=== PATIENT | female | born 1935 | race Caucasian/White ===

== ENCOUNTER 2016-11-29 10:20 | Inpatient (IN) | payer MEDICARE, BC ==
[2016-11-29] MEDS ORDERED: Albuterol/Ipratropium 3.0-0.5 MG/3 ML Neb Soln NEB ONE (10:50)
[2016-11-29] MEDS ORDERED: Sodium Chloride 0.9% 1,000 ML IV SCH (13:45)
--- NOTE | 2016-11-29 13:54 | EDM.PDOC ---
ED HPI GENERAL MEDICAL PROBLEM - General Chief Complaint: Respiratory Problem Stated Complaint: SOB Time Seen by Provider: 11/29/16 10:30 Source of Information: Reports: Patient, Family History Limitations: Reports: No Limitations - History of Present Illness INITIAL COMMENTS - FREE TEXT/NARRATIVE: Patient is a 81 year old woman who has COPD and a history of low sodium who today has had difficulty breathing and is very short of breath. She is very weak and her appetite is not good. She has minimal pain but it is hard for her to get around at her house due to her breathing problems and weakness. 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 - Related Data Allergies Allergy/AdvReac Type Severity Reaction Status Date / Time codeine Allergy Nausea and Verified 11/29/16 13:53 Vomiting zolpidem tartrate Allergy Nausea and Verified 11/29/16 13:53 [From Ambien] Vomiting Home Meds: Home Meds Fluticasone/Salmeterol [Advair 500-50] 1 puff INH BID 07/05/14 [History] Nitroglycerin [Nitrostat] 0.4 mg SL Q5M PRN 07/05/14 [History] LORazepam 1 mg PO BID PRN 06/14/15 [History] Umeclidinium [place] [Incruse Ellipta] 62.5 mcg IH DAILY 06/14/15 [History] Carvedilol [Coreg] 6.25 mg PO BIDMEALS tablet 06/16/15 [Rx] Losartan [Cozaar] 100 mg PO DAILY tablet 06/16/15 [Rx] Fluticasone Propionate [Flovent] 2 sprays INH DAILY 11/29/16 [History] Furosemide [Lasix] 40 mg PO DAILY 11/29/16 [History] Levalbuterol HCl [Xopenex] 1 dose INH QID 11/29/16 [History] Levothyroxine [Synthroid] 88 mcg PO DAILY 11/29/16 [History] Magnesium Hydroxide [Milk of Magnesia] 1 dose PO DAILY 11/29/16 [History] Mirtazapine [Remeron] 30 mg PO DAILY 11/29/16 [History] Nicotine [Nicotine Patch] 1 patch TRDERM DAILY 11/29/16 [History] Polyvinyl Alcohol/Povidone/Pf [Refresh Classic Eye Drops] 1 drop EYEBOTH TID [History] Potassium Chloride [Klor-Con 10] 10 meq PO DAILY 11/29/16 [History] Past Medical History HEENT History: Reports: Cataract, Impaired Vision Cardiovascular History: Reports: Angina, High Cholesterol, Hypertension, SOB on Exertion, Stents Respiratory History: Reports: Bronchitis, Recurrent, COPD, Sleep Apnea, SOB Gastrointestinal History: Reports: Chronic Constipation, Hemorrhoids Genitourinary History: Reports: None 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 OB/BYN History: IV PARA IV Musculoskeletal History: Reports: Arthritis, Back Pain, Chronic Neurological History: Reports: CVA Psychiatric History: Reports: Addiction, Anxiety, Panic Attack Endocrine/Metabolic History: Reports: Hypothyroidism Hematologic History: Reports: None Oncologic (Cancer) History: Reports: Breast Dermatologic History: Reports: None - Infectious Disease History Infectious Disease History: Reports: Chicken Pox, Pertussis (Whooping Cough), Scarlet Fever - Past Surgical History Head Surgeries/Procedures: Reports: None HEENT Surgical History: Reports: Cataract Surgery Cardiovascular Surgical History: Reports: Carotid Endarterectomy, Coronary Artery Stent Female Surgical History: Reports: Breast Biopsy, Tubal Ligation Endocrine Surgical History: Reports: None Neurological Surgical History: Reports: None Oncologic Surgical History: Reports: Biopsy of Breast Dermatological Surgical History: Reports: None Social & Family History - Family History Family Medical History: Noncontributory Cardiac: Reports: None Respiratory: Reports: None GI: Reports: None : Reports: None OBGYN: Reports: Musculoskeletal: Reports: None Neurological: Reports: None Psychiatric: Reports: None Endocrine/Metabolic: Reports: Hypoparathyroidism Hematologic: Reports: None Immunologic: Reports: None Dermatologic: Reports: None Oncologic: Reports: Esophageal, Ovarian - Tobacco Use Smoking Status *Q: Current Every Day Smoker Years of Tobacco use: 60 Packs/Tins Daily: 1 Used Tobacco, but Quit: No Month Tobacco Last Used: 06/05/14 Second Hand Smoke Exposure: No - Caffeine Use Caffeine Use: Reports: Coffee - Alcohol Use Days Per Week of Alcohol Use: 0 - Recreational Drug Use Recreational Drug Use: No - Living Situation & Occupation Living situation: Reports: ED ROS GENERAL - Review of Systems Review Of Systems: See Below Constitutional: Reports: Weakness, Fatigue, Decreased Appetite HEENT: Reports: No Symptoms Respiratory: Reports: Shortness of Breath, Cough Cardiovascular: Reports: No Symptoms Endocrine: Reports: No Symptoms GI/Abdominal: Reports: No Symptoms : Reports: No Symptoms Musculoskeletal: Reports: No Symptoms Skin: Reports: No Symptoms Neurological: Reports: No Symptoms Psychiatric: Reports: No Symptoms Hematologic/Lymphatic: Reports: No Symptoms Immunologic: Reports: No Symptoms ED EXAM, GENERAL - Physical Exam Exam: See Below Exam Limited By: No Limitations General Appearance: Alert, WD/WN, No Apparent Distress Eye Exam: Bilateral Eye: EOMI, Normal Fundi, Normal Inspection, PERRL Ears: Normal External Exam, Normal Canal, Hearing Grossly Normal, Normal TMs Ear Exam: Bilateral Ear: Auricle Normal, Canal Normal, TM normal Nose: Normal Inspection Throat/Mouth: Normal Inspection Head: Atraumatic, Normocephalic Neck: Normal Inspection, Supple, Non-Tender, Full Range of Motion Respiratory/Chest: Respiratory Distress, Decreased Breath Sounds Cardiovascular: Normal Peripheral Pulses, Regular Rate, Rhythm, No Edema, No Gallop, No JVD, No Murmur, No Rub GI/Abdominal: Normal Bowel Sounds, Soft, Non-Tender, No Organomegaly, No Distention, No Abnormal Bruit, No Mass Back Exam: Normal Inspection, Full Range of Motion, NT Extremities: Normal Inspection, Normal Range of Motion, Non-Tender, Normal Capillary Refill Neurological: Alert, Oriented, CN II-XII Intact, Normal Cognition, Normal Gait, Normal Reflexes, No Motor/Sensory Deficits Psychiatric: Normal Affect, Normal Mood Skin Exam: Warm, Dry, Intact, Normal Color, No Rash Lymphatic: No Adenopathy Course - Vital Signs Text/Narrative:: Patient did well in the ED after she was given a Duoneb. Her CXR showed COPD but no infiltrates. Her CBC was normal but she was Hyponatremic with a sodium of 124. She will be admitted to the Hospital service of Dr. Hunt. She will be on Normal Saline 125 ml/hour. IV solumedrol 125 mg q 12 hours, Duoneb 1 unit dose q 6 hours, Oxygen 2-4 liters to keep O2 sats over 90%. Will continue her home medications. She will need a regular diet. Last Recorded V/S: Last Vital Signs Temp 36.2 C 11/29/16 11:37 Pulse 76 11/29/16 11:37 Resp 22 H 11/29/16 11:37 BP 152/91 H 11/29/16 11:37 Pulse Ox 86 L 11/29/16 11:37 - Orders/Labs/Meds Orders: Active Orders 24 hr Category Date Time Status Admission Status [Patient Status] [ADT] Routine ADT 11/29/16 13:21 Ordered RT Aerosol Therapy [RC] ASDIRECTED Care 11/29/16 13:46 Ordered Chest 2V [CR] Stat Exams 11/29/16 11:19 Taken Albuterol/Ipratropium [DuoNeb 3.0-0.5 MG/3 ML] Med 11/29/16 13:45 Ordered 3 ml NEB Q6H PRN Sodium Chloride 0.9% @ 125 MLS/HR (1000ml) Med 11/29/16 13:45 Ordered Sodium Chloride 0.9% [Normal Saline] 1,000 ml IV ASDIRECTED methylPREDNISolone Sod Succ [Solu-Medrol] Med 11/29/16 21:00 Ordered 125 mg IV BID EKG 12 Lead [EK] Routine Ther 11/29/16 10:49 Ordered Medication Orders Albuterol/Ipratropium (Duoneb 3.0-0.5 Mg/3 Ml) 3 ml NEB Q6H PRN PRN Reason: Dyspnea Sodium Chloride (Normal Saline) 1,000 mls @ 125 mls/hr IV ASDIRECTED FRANCOIS Methylprednisolone Sodium Succinate (Solu-Medrol) 125 mg IV BID [facility] Labs: Laboratory Tests 11/29/16 11/29/16 11/29/16 Range/Units 10:37 10:37 10:37 WBC 5.9 (4.5-12.0) X10-3/uL RBC 3.51 (3.23-5.20) x10(6)uL Hgb 10.3 L (11.5-15.5) g/dL Hct 31.0 (30.0-51.3) % MCV 88.3 (80-96) fL MCH 29.4 (27.7-33.6) pg MCHC 33.3 (32.2-35.4) g/dL RDW 13.5 (11.5-15.5) % Plt Count 413 H (125-369) X10(3)uL MPV 7.3 L (7.4-10.4) fL Neut % (Auto) 78.2 (46-82) % Lymph % (Auto) 11.0 L (13-37) % [place] % (Auto) 8.1 (4-12) % Eos % (Auto) 2 (1.0-5.0) % Baso % (Auto) 1 (0-2) % Neut # (Auto) 4.6 (1.6-8.3) # Lymph # (Auto) 0.6 (0.6-5.0) # [place] # (Auto) 0.5 (0.0-1.3) # Eos # (Auto) 0.1 (0.0-0.8) # Baso # (Auto) 0.1 (0.0-0.2) # Sodium 124 L (135-145) mmol/L Potassium 4.6 (3.5-5.3) mmol/L Chloride 81 L* D (100-110) mmol/L Carbon Dioxide 32 H (23-29) mmol/L BUN 14 (8-23) mg/dL Creatinine 0.9 (0.6-1.3) mg/dL Est Cr Clr Drug Dosing TNP Estimated GFR (MDRD) > 60 (>60) BUN/Creatinine Ratio 15.6 (9-20) Glucose 123 H (80-116) mg/dL Calcium 8.6 (8.6-10.2) mg/dL Total Bilirubin 0.6 (0.1-1.3) mg/dL AST 24 D (5-27) IU/L ALT 15 D (14-26) IU/L Alkaline Phosphatase 55 L (56-112) IU/L Troponin I 0.01 L (0.02-0.06) NG/ML Total Protein 7.1 (6.0-8.0) g/dL Albumin 3.9 (3.2-4.6) g/dL Globulin 3.2 g/dL Albumin/Globulin Ratio 1.2 Urine Color (YELLOW) Urine Appearance (CLEAR) Urine pH (5.0-6.5) Ur Specific [place] (1.010-1.025) Urine Protein (NEGATIVE) mg/dL Urine Glucose (UA) (NEGATIVE) mg/dL Urine Ketones (NEGATIVE) mg/dL Urine Occult Blood (NEGATIVE) Urine Nitrite (NEGATIVE) Urine Bilirubin (NEGATIVE) Urine Urobilinogen (NEGATIVE) mg/dL Ur Leukocyte Esterase (NEGATIVE) Urine RBC (0) Urine WBC (0) Ur Squamous Epith Cells (NS,R,O) Urine Bacteria (NS) 11/29/16 Range/Units 12:10 WBC (4.5-12.0) X10-3/uL RBC (3.23-5.20) x10(6)uL Hgb (11.5-15.5) g/dL Hct (30.0-51.3) % MCV (80-96) fL MCH (27.7-33.6) pg MCHC (32.2-35.4) g/dL RDW (11.5-15.5) % Plt Count (125-369) X10(3)uL MPV (7.4-10.4) fL Neut % (Auto) (46-82) % Lymph % (Auto) (13-37) % [place] % (Auto) (4-12) % Eos % (Auto) (1.0-5.0) % Baso % (Auto) (0-2) % Neut # (Auto) (1.6-8.3) # Lymph # (Auto) (0.6-5.0) # [place] # (Auto) (0.0-1.3) # Eos # (Auto) (0.0-0.8) # Baso # (Auto) (0.0-0.2) # Sodium (135-145) mmol/L Potassium (3.5-5.3) mmol/L Chloride (100-110) mmol/L Carbon Dioxide (23-29) mmol/L BUN (8-23) mg/dL Creatinine (0.6-1.3) mg/dL Est Cr Clr Drug Dosing Estimated GFR (MDRD) (>60) BUN/Creatinine Ratio (9-20) Glucose (80-116) mg/dL Calcium (8.6-10.2) mg/dL Total Bilirubin (0.1-1.3) mg/dL AST (5-27) IU/L ALT (14-26) IU/L Alkaline Phosphatase (56-112) IU/L Troponin I (0.02-0.06) NG/ML Total Protein (6.0-8.0) g/dL Albumin (3.2-4.6) g/dL Globulin g/dL Albumin/Globulin Ratio Urine Color Yellow (YELLOW) Urine Appearance Clear (CLEAR) Urine pH 5.0 (5.0-6.5) Ur Specific [place] 1.015 (1.010-1.025) Urine Protein Negative (NEGATIVE) mg/dL Urine Glucose (UA) Normal (NEGATIVE) mg/dL Urine Ketones Negative (NEGATIVE) mg/dL Urine Occult Blood Negative (NEGATIVE) Urine Nitrite Negative (NEGATIVE) Urine Bilirubin Negative (NEGATIVE) Urine Urobilinogen Normal (NEGATIVE) mg/dL Ur Leukocyte Esterase Negative (NEGATIVE) Urine RBC 0-5 (0) Urine WBC 0-5 (0) Ur Squamous Epith Cells Rare (NS,R,O) Urine Bacteria Rare H (NS) Meds: Medications Generic Name Dose Route Start Last Admin Trade Name Freq PRN Reason Stop Dose Admin Albuterol/Ipratropium 3 ml 11/29/16 13:45 Duoneb 3.0-0.5 Mg/3 Ml NEB Q6H PRN Dyspnea Sodium Chloride 1,000 mls @ 125 mls/hr 11/29/16 13:45 Normal Saline IV ASDIRECTED FRANCOIS Methylprednisolone Sodium Succinate 125 mg 11/29/16 21:00 Solu-Medrol IV BID FRANCOIS Discontinued Medications Generic Name Dose Route Start Last Admin Trade Name Freq PRN Reason Stop Dose Admin Albuterol/Ipratropium 3 ml 11/29/16 10:50 11/29/16 11:08 Duoneb 3.0-0.5 Mg/3 Ml NEB 11/29/16 10:51 3 ml ONETIME ONE Administration Departure - Departure Time of Disposition: 14:24 Disposition: Admitted As Inpatient 68 Condition: Fair Clinical Impression: COPD exacerbation, COPD (chronic obstructive pulmonary disease) with emphysema , Hyponatremia, Hyponatremia syndrome - Discharge Information Referrals: Angela Cifuentes MEDICINE TEACHER [Primary Care Provider] - - My Orders Last 24 Hours: My Active Orders 11/29/16 10:49 EKG 12 Lead [EK] Routine 11/29/16 11:19 Chest 2V [CR] Stat 11/29/16 13:21 Admission Status [Patient Status] [ADT] Routine 11/29/16 13:45 Albuterol/Ipratropium [DuoNeb 3.0-0.5 MG/3 ML] 3 ml NEB Q6H PRN Sodium Chloride 0.9% @ 125 MLS/HR (1000ml) Sodium Chloride 0.9% [Normal Saline] 1,000 ml IV ASDIRECTED 11/29/16 13:46 RT Aerosol Therapy [RC] ASDIRECTED 11/29/16 21:00 methylPREDNISolone Sod Succ [Solu-Medrol] 125 mg IV BID - Assessment/Plan Last 24 Hours: My Active Orders 11/29/16 10:49 EKG 12 Lead [EK] Routine 11/29/16 11:19 Chest 2V [CR] Stat 11/29/16 13:21 Admission Status [Patient Status] [ADT] Routine 11/29/16 13:45 Albuterol/Ipratropium [DuoNeb 3.0-0.5 MG/3 ML] 3 ml NEB Q6H PRN Sodium Chloride 0.9% @ 125 MLS/HR (1000ml) Sodium Chloride 0.9% [Normal Saline] 1,000 ml IV ASDIRECTED 11/29/16 13:46 RT Aerosol Therapy [RC] ASDIRECTED 11/29/16 21:00 methylPREDNISolone Sod Succ [Solu-Medrol] 125 mg IV BID
[2016-11-29] MEDS ORDERED: Sodium Chloride 0.9% 10 ML Syringe FLUSH PRN ×2 (14:15→19:14)
[2016-11-29] MEDS ORDERED: Nitroglycerin 0.4 MG Tab.SL SL PRN (14:51)
[2016-11-29] MEDS: LORazepam 1 MG Tab PO PRN ×2 (15:15→23:39)
[2016-11-29] MEDS: Albuterol/Ipratropium 3.0-0.5 MG/3 ML Neb Soln NEB PRN ×2 (17:02→23:24)
[2016-11-29] MEDS: Albuterol 90 MCG/6.7 GM Inhaler INH SCH ×2 (17:02→21:37)
[2016-11-29] MEDS ORDERED: Magnesium Hydroxide 400 MG/5 ML Susp 30 ML Cup PO PRN (18:53)
[2016-11-29] MEDS: Carvedilol 6.25 MG Tab PO SCH (18:53)
--- NOTE | 2016-11-29 19:19 | PCM.HP ---
H&P History of Present Illness - General Date of Service: 11/29/16 Admit Problem/Dx: Admission Diagnosis/Problem Admission Diagnosis/Problem COPD, Moderate chronic obstructive pulmonary disease - History of Present Illness Initial Comments - Free Text/Narative: 81-year-old female admitted because of shortness of breath. This apparently has been going on for 2 days,but got worse this morning around 4 AM accompanied by cold symptoms and a cough. She was unable to ambulate at all without being short of breath. She was noted to know oxygenation's upon arrival. She is oxygen dependent due to COPD, Andehist of CHF, and COPD which a previously been stable. She also suffers from anxiety and hypertension are well controlled. Last year she spent about 9 months in the [facility] but has been home and fairly independent since. There is no report of fever chest pain or headaches. Onset of Symptoms: Reports: Today - Related Data Allergies/Adverse Reactions: Allergies Allergy/AdvReac Type Severity Reaction Status Date / Time codeine Allergy Nausea and Verified 11/29/16 13:53 Vomiting zolpidem tartrate Allergy Nausea and Verified 11/29/16 13:53 [From Ambien] Vomiting Home Medications: Home Meds Fluticasone/Salmeterol [Advair 500-50] 1 puff INH BID 07/05/14 [History] Nitroglycerin [Nitrostat] 0.4 mg SL Q5M PRN 07/05/14 [History] LORazepam 1 mg PO BID PRN 06/14/15 [History] Umeclidinium [place] [Incruse Ellipta] 62.5 mcg IH DAILY 06/14/15 [History] Carvedilol [Coreg] 6.25 mg PO BIDMEALS tablet 06/16/15 [Rx] Losartan [Cozaar] 100 mg PO DAILY tablet 06/16/15 [Rx] Fluticasone Propionate [Flovent] 2 sprays INH DAILY 11/29/16 [History] Furosemide [Lasix] 40 mg PO DAILY 11/29/16 [History] Levalbuterol HCl [Xopenex] 1 dose INH QID 11/29/16 [History] Levothyroxine [Synthroid] 88 mcg PO DAILY 11/29/16 [History] Magnesium Hydroxide [Milk of Magnesia] 1 dose PO DAILY 11/29/16 [History] Mirtazapine [Remeron] 30 mg PO DAILY 11/29/16 [History] Nicotine [Nicotine Patch] 1 patch TRDERM DAILY 11/29/16 [History] Polyvinyl Alcohol/Povidone/Pf [Refresh Classic Eye Drops] 1 drop EYEBOTH TID [History] Potassium Chloride [Klor-Con 10] 10 meq PO DAILY 11/29/16 [History] busPIRone [Buspar] 7.5 mg PO BID 11/29/16 [History] busPIRone [Buspar] 15 mg PO BID 11/29/16 [History] Past Medical History HEENT History: Reports: Cataract, Impaired Vision Cardiovascular History: Reports: Angina, High Cholesterol, Hypertension, SOB on Exertion, Stents Respiratory History: Reports: Bronchitis, Recurrent, COPD, Sleep Apnea, SOB Gastrointestinal History: Reports: Chronic Constipation, Hemorrhoids Genitourinary History: Reports: None CLEAT LAYER History: Reports: Other OB/BYN History: IV PARA IV Musculoskeletal History: Reports: Arthritis, Back Pain, Chronic Neurological History: Reports: CVA Psychiatric History: Reports: Addiction, Anxiety, Panic Attack Endocrine/Metabolic History: Reports: Hypothyroidism Hematologic History: Reports: None Oncologic (Cancer) History: Reports: Breast Dermatologic History: Reports: None - Infectious Disease History Infectious Disease History: Reports: Chicken Pox, Pertussis (Whooping Cough), Scarlet Fever - Past Surgical History Head Surgeries/Procedures: Reports: None HEENT Surgical History: Reports: Cataract Surgery Cardiovascular Surgical History: Reports: Carotid Endarterectomy, Coronary Artery Stent Female Surgical History: Reports: Breast Biopsy, Tubal Ligation Endocrine Surgical History: Reports: None Neurological Surgical History: Reports: None Oncologic Surgical History: Reports: Biopsy of Breast Dermatological Surgical History: Reports: None Social & Family History - Family History Family Medical History: Noncontributory Cardiac: Reports: None Respiratory: Reports: None GI: Reports: None : Reports: None OBGYN: Reports: Musculoskeletal: Reports: None Neurological: Reports: None Psychiatric: Reports: None Endocrine/Metabolic: Reports: Hypoparathyroidism Hematologic: Reports: None Immunologic: Reports: None Dermatologic: Reports: None Oncologic: Reports: Esophageal, Ovarian - Tobacco Use Smoking Status *Q: Current Every Day Smoker Years of Tobacco use: 60 Packs/Tins Daily: 1 Used Tobacco, but Quit: No Month Tobacco Last Used: 06/05/14 Tobacco Use Comment: smokes 1 cig. per day Second Hand Smoke Exposure: No - Caffeine Use Caffeine Use: Reports: Coffee - Alcohol Use Days Per Week of Alcohol Use: 0 - Recreational Drug Use Recreational Drug Use: No - Living Situation & Occupation Living situation: Reports: H&P Review of Systems - Review of Systems: Review Of Systems: ROS reveals no pertinent complaints other than HPI. Exam - Exam Exam: See Below - Vital Signs Vital Signs: Last Vital Signs Temp 98.4 F 11/29/16 17:00 Pulse 67 11/29/16 18:53 Resp 22 H 11/29/16 17:00 BP 154/60 H 11/29/16 18:53 Pulse Ox 100 11/29/16 17:00 Weight: 45.359 kg - Exam Quality Assessment: Supplemental Oxygen General: Alert, Oriented, 4 HEENT: PERRLA, Hearing Intact, Mucosa Moist & [place], Nares Patent, Normal Nasal Septum, Posterior Pharynx Clear, Conjunctiva Clear, EOMI, EACs Clear, TMs Clear Neck: Supple, Trachea Midline, 2 Lungs: Rales, Rhonchi Cardiovascular: Regular Rate, Regular Rhythm GI/Abdominal Exam: Normal Bowel Sounds, Soft, Non-Tender, No Organomegaly, No Distention, No Abnormal Bruit, No Mass, Pelvis Stable (Female) Exam: Deferred Rectal (Female) Exam: Deferred Back Exam: Normal Inspection, Full Range of Motion, NT Extremities: Normal Inspection, Normal Range of Motion, Non-Tender, No Pedal Edema, Normal Capillary Refill Skin: Warm, Dry, Intact Neurological: Cranial Nerves Intact, Reflexes Equal Bilateral Neuro Extensive - Mental Status: Alert, Oriented x3, Normal Mood/Affect, Normal Cognition Neuro Extensive - Motor, Sensory, Reflexes: CN II-XII Intact, Normal Gait, Normal Reflexes Psychiatric: Alert, Normal Affect, Normal Mood - Patient Data Result Diagrams: 11/29/16 10:37 11/29/16 10:37 Imaging Impressions Last 24 hrs: CXR-no infiltrate. ECHO for 2016-EF 60% EKG INTERPRETATION Rhythm: NSR *Q Meaningful Use (ADM) - VTE *Q VTE Criteria *Q: - Stroke *Q Stroke Criteria *Q: - AMI *Q AMI Criteria *Q: - Problem List (1) Pulmonary HTN SNOMED Code(s): 27777463 ICD Code: I27.2 - OTHER SECONDARY PULMONARY HYPERTENSION Status: Acute Current Visit: Yes (2) Essential (primary) hypertension SNOMED Code(s): 03878152 ICD Code: I10 - ESSENTIAL (PRIMARY) HYPERTENSION Status: Acute Current Visit: Yes (3) Hyponatremia SNOMED Code(s): 30505386 ICD Code: E87.1 - HYPO-OSMOLALITY AND HYPONATREMIA Status: Acute Priority : Medium Current Visit: Yes Onset Date: 05/12/15 Problem Details: Hypervolemic hyponatremia. fluid restrict. sodium restrict. elevate legs. lasix if needed. recheck bmp this evening. strict i/o. (4) Anxiety SNOMED Code(s): 34538158 ICD Code: F41.9 - ANXIETY DISORDER, UNSPECIFIED Status: Chronic Current Visit: No (5) Supplemental oxygen dependent SNOMED Code(s): 781126425366 ICD Code: Z99.81 - DEPENDENCE ON SUPPLEMENTAL OXYGEN Status: Chronic Current Visit: No Problem Details: baseline at home 3L. (6) CHF (congestive heart failure), NYHA class III SNOMED Code(s): 332137488, 755238043 ICD Code: I50.9 - HEART FAILURE, UNSPECIFIED Status: Chronic Priority: High Current Visit: No Problem Details: Continue home meds. rule out nstemi, diuresis if required. support pulmonary function. set up for echo in house or outpt. dvt proph. follow ekg. Qualifiers: Congestive heart failure type: diastolic (7) CAD (coronary artery disease) SNOMED Code(s): 86180465 ICD Code: I25.10 - ATHSCL HEART DISEASE OF [place] CORONARY ARTERY W/O ANG PCTRS Status: Chronic Current Visit: Yes Qualifiers: Coronary Disease-Associated Artery/Lesion type: [place] artery Problem List Initiated/Reviewed/Updated: Yes Orders Last 24hrs: Active Orders 24 hr Category Date Time Status Height and Weight [] DAILY Care 11/29/16 19:14 Ordered Oxygen Therapy Adult [Oxygen Therapy] [] ASDIRECTED Care 11/29/16 14:43 Active RT Aerosol Therapy [RC] ASDIRECTED Care 11/29/16 13:46 Active Up With Assistance [] ASDIRECTED Care 11/29/16 19:14 Ordered VTE/DVT Education [] Per Unit Routine Care 11/29/16 19:14 Ordered Vital Signs [RC] Q8H Care 11/29/16 19:14 Ordered Regular Diet [DIET] Diet 11/29/16 Breakfast Ordered B-TYPE NATRIURETIC PEPTIDE,BNP [CHEM] Routine Lab 11/29/16 19:14 Ordered CBC WITH AUTO DIFF [HEME] AM Lab 11/30/16 05:11 Ordered COMPREHENSIVE METABOLIC PN,CMP [CHEM] AM Lab 11/30/16 05:11 Ordered TROPONIN I [CHEM] AM Lab 11/30/16 05:11 Ordered Albuterol [Proventil HFA] Med 11/29/16 16:00 Active 0 puff INH QIDRT Albuterol/Ipratropium [DuoNeb 3.0-0.5 MG/3 ML] Med 11/29/16 13:45 Active 3 ml NEB Q6H PRN Carvedilol [Coreg] Med 11/29/16 18:00 Active 6.25 mg PO BIDMEALS Enoxaparin [Lovenox] Med 11/30/16 09:00 Ordered 30 mg SUBCUT DAILY Fluticasone Propionate [Flonase] Med 11/30/16 09:00 Active 0 gm NASBOTH DAILY Furosemide [Lasix] Med 11/30/16 09:00 Active 40 mg PO DAILY LORazepam [Ativan] Med 11/29/16 15:00 Active 1 mg PO BID PRN Levothyroxine [Synthroid] Med 11/30/16 09:00 Active 88 mcg PO DAILY Losartan [Cozaar] Med 11/30/16 09:00 Active 100 mg PO DAILY Mirtazapine [Remeron] Med 11/30/16 09:00 Active 30 mg PO DAILY Mometasone/Formoterol [Dulera 200-5 MCG] Med 11/29/16 21:00 Active 2 puff IH BIDRT Nicotine [Habitrol] Med 11/30/16 09:00 Active 7 mg TRDERM DAILY Nitroglycerin [Nitrostat] Med 11/29/16 14:51 Active 0.4 mg SL Q5M PRN Polyvinyl Alcohol/Povidone/Pf [Refresh Classic Eye Med 11/29/16 21:00 Pending Drops] 1 drop EYEBOTH TID Potassium Chloride [Klor-Con 10] Med 11/30/16 09:00 Active 10 meq PO DAILY Sodium Chloride 0.9% [Saline Flush] Med 11/29/16 14:15 Active 10 ml FLUSH ASDIRECTED PRN Sodium Chloride 0.9% [Saline Flush] Med 11/29/16 19:14 Ordered 10 ml FLUSH ASDIRECTED PRN Umeclidinium Inkom [Incruse Ellipta] Med 11/30/16 09:00 Pending 62.5 mcg IH DAILY methylPREDNISolone Sod Succ [Solu-MEDROL] Med 11/29/16 21:00 Active 125 mg IVPUSH BID Saline Lock Insert [OM.PC] Routine Oth 11/29/16 19:14 Ordered Resuscitation Status Routine Resus Stat 11/29/16 19:14 Ordered Medication Orders Albuterol (Proventil Hfa) 0 puff INH QIDRT [facility] Last Admin: 11/29/16 17:02 Dose: Not Given Albuterol/Ipratropium (Duoneb 3.0-0.5 Mg/3 Ml) 3 ml NEB Q6H PRN PRN Reason: Dyspnea Last Admin: 11/29/16 17:02 Dose: 3 ml Carvedilol (Coreg) 6.25 mg PO BIDMEALS [facility] Last Admin: 11/29/16 18:53 Dose: 6.25 mg Fluticasone Propionate (Flonase) 0 gm NASBOTH DAILY [facility] Furosemide (Lasix) 40 mg PO DAILY [facility] Levothyroxine Sodium (Synthroid) 88 mcg PO DAILY [facility] Lorazepam (Ativan) 1 mg PO BID PRN PRN Reason: ANXIETY Last Admin: 11/29/16 15:15 Dose: 1 mg Losartan Potassium (Cozaar) 100 mg PO DAILY [facility] Methylprednisolone Sodium Succinate (Solu-Medrol) 125 mg IVPUSH BID [facility] Mirtazapine (Remeron) 30 mg PO DAILY [facility] Mometasone Furoate/Formoterol Fumar (Dulera 200-5 Mcg) 2 puff IH BIDRT [facility] Nicotine (Habitrol) 7 mg TRDERM DAILY [facility] Nitroglycerin (Nitrostat) 0.4 mg SL Q5M PRN PRN Reason: Chest Pain Non-Formulary Medication (Polyvinyl Alcohol/Povidone/Pf [Refresh Classic Eye Drops]) 1 drop EYEBOTH TID [facility] Non-Formulary Medication (Umeclidinium [place] [Incruse Ellipta]) 62.5 mcg IH DAILY [facility] Potassium Chloride (Klor-Con 10) 10 meq PO DAILY [facility] Sodium Chloride (Saline Flush) 10 ml FLUSH ASDIRECTED PRN PRN Reason: Other Assessment/Plan Comment:: I agree with Solu-Medrol IV, oxygen supplementation, and duo nebs as needed. I restricted oral free water intake to less than 1000 mL a day. The rest of the home medications will be continued anticipating 2-3 day hospital stay.We'll repeat a CBC basic profile in morning along with a BNP. I didn't echocardiogram done in 2016 with an ejection fraction of 65%. I suspect a CHF to be diastolic dysfunction.
[2016-11-29] MEDS ORDERED: Non-Formulary Medication 1 Each (Polyvinyl Alcohol/Povidone/Pf [Refresh Classic Eye Drops] EYEBOTH SCH (21:00)
[2016-11-29] MEDS ORDERED: methylPREDNISolone Sodium Succinate 125 MG/2 ML SDV IVPUSH SCH (21:00)
[2016-11-29] MEDS: Formoterol/Mometasone 200-5 MCG 8.8 GM Inhaler IH SCH (21:21)
[2016-11-30] MEDS: Albuterol/Ipratropium 3.0-0.5 MG/3 ML Neb Soln NEB PRN ×4 (04:00→18:29)
[2016-11-30] MEDS: Levothyroxine 88 MCG Tab PO SCH (06:10)
[2016-11-30] MEDS: Formoterol/Mometasone 200-5 MCG 8.8 GM Inhaler IH SCH ×2 (08:00→20:48)
--- NOTE | 2016-11-30 08:07 | PCM.PN ---
- General Info Date of Service: 11/30/16 Admission Dx/Problem (Free Text): Admission Diagnosis/Problem Admission Diagnosis/Problem COPD, Moderate chronic obstructive pulmonary disease Functional Status: Reports: Pain Controlled, Urinating - Review of Systems General: Reports: No Symptoms HEENT: Reports: No Symptoms Pulmonary: Reports: Shortness of Breath, Cough, Wheezing Cardiovascular: Reports: No Symptoms, Dyspnea on Exertion. Denies: Chest Pain Gastrointestinal: Reports: No Symptoms Neurological: Reports: No Symptoms Psychiatric: Reports: Mood Lability, Anxiety - Patient Data Vitals - Most Recent: Last Vital Signs Temp 98.2 F 11/30/16 07:00 Pulse 90 11/30/16 07:00 Resp 18 11/30/16 07:00 BP 187/102 H 11/30/16 07:00 Pulse Ox 99 11/30/16 07:00 Weight - Most Recent: 51.573 kg I&O - Last 24 Hours: Intake & Output 11/29/16 11/30/16 11/30/16 22:59 06:59 14:59 Intake Total 482 Balance 482 Lab Results Last 24 Hours: Laboratory Results - last 24 hr 11/30/16 11/30/16 11/30/16 Range/Units 06:25 06:25 06:25 WBC 5.2 (4.5-12.0) X10-3/uL RBC 3.42 (3.23-5.20) x10(6)uL Hgb 10.0 L (11.5-15.5) g/dL Hct 30.1 (30.0-51.3) % MCV 88.0 (80-96) fL MCH 29.2 (27.7-33.6) pg MCHC 33.2 (32.2-35.4) g/dL RDW 13.3 (11.5-15.5) % Plt Count 427 H (125-369) X10(3)uL MPV 7.6 (7.4-10.4) fL Add Manual Diff Yes Neutrophils % (Manual) 88 H (46-82) % Lymphocytes % (Manual) 12 L (13-37) % Sodium 120 L (135-145) mmol/L Potassium 4.6 (3.5-5.3) mmol/L Chloride 81 L* (100-110) mmol/L Carbon Dioxide 31 H (23-29) mmol/L BUN 16 (8-23) mg/dL Creatinine 1.0 (0.6-1.3) mg/dL Est Cr Clr Drug Dosing 36.08 mL/min Estimated GFR (MDRD) 53 L (>60) BUN/Creatinine Ratio 16.0 (9-20) Glucose 160 H (80-116) mg/dL Calcium 8.7 (8.6-10.2) mg/dL Total Bilirubin 0.4 (0.1-1.3) mg/dL AST 26 (5-27) IU/L ALT 15 (14-26) IU/L Alkaline Phosphatase 54 L (56-112) IU/L Troponin I 0.01 L (0.02-0.06) NG/ML B-Natriuretic Peptide (0-100) pg/mL Total Protein 7.1 (6.0-8.0) g/dL Albumin 3.8 (3.2-4.6) g/dL Globulin 3.3 g/dL Albumin/Globulin Ratio 1.2 11/30/ Range/Units 06:25 WBC (4.5-12.0) X10-3/uL RBC (3.23-5.20) x10(6)uL Hgb (11.5-15.5) g/dL Hct (30.0-51.3) % MCV (80-96) fL MCH (27.7-33.6) pg MCHC (32.2-35.4) g/dL RDW (11.5-15.5) % Plt Count (125-369) X10(3)uL MPV (7.4-10.4) fL Add Manual Diff Neutrophils % (Manual) (46-82) % Lymphocytes % (Manual) (13-37) % Sodium (135-145) mmol/L Potassium (3.5-5.3) mmol/L Chloride (100-110) mmol/L Carbon Dioxide (23-29) mmol/L BUN (8-23) mg/dL Creatinine (0.6-1.3) mg/dL Est Cr Clr Drug Dosing mL/min Estimated GFR (MDRD) (>60) BUN/Creatinine Ratio (9-20) Glucose (80-116) mg/dL Calcium (8.6-10.2) mg/dL Total Bilirubin (0.1-1.3) mg/dL AST (5-27) IU/L ALT (14-26) IU/L Alkaline Phosphatase (56-112) IU/L Troponin I (0.02-0.06) NG/ML B-Natriuretic Peptide 528 H (0-100) pg/mL Total Protein (6.0-8.0) g/dL Albumin (3.2-4.6) g/dL Globulin g/dL Albumin/Globulin Ratio Med Orders - Current: Current Medications Albuterol (Proventil Hfa) 0 puff INH QIDRT [facility] Last Admin: 11/29/16 21:37 Dose: 1 puff Albuterol/Ipratropium (Duoneb 3.0-0.5 Mg/3 Ml) 3 ml NEB Q4H PRN PRN Reason: Dyspnea Last Admin: 11/30/16 04:00 Dose: 3 ml Buspirone HCl (Buspar) 15 mg PO BID [facility] Carvedilol (Coreg) 6.25 mg PO BIDMEALS [facility] Last Admin: 11/29/16 18:53 Dose: 6.25 mg Enoxaparin Sodium (Lovenox) 30 mg SUBCUT DAILY [facility] Fluticasone Propionate (Flonase) 0 gm NASBOTH DAILY [facility] Furosemide (Lasix) 40 mg PO DAILY [facility] Sodium Chloride (Normal Saline) 1,000 mls @ 100 mls/hr IV ASDIRECTED [facility] Levothyroxine Sodium (Synthroid) 88 mcg PO DAILY@0600 [facility] Last Admin: 11/30/16 06:10 Dose: 88 mcg Lorazepam (Ativan) 0.5 mg PO QID [facility] Losartan Potassium (Cozaar) 100 mg PO DAILY [facility] Methylprednisolone Sodium Succinate (Solu-Medrol) 125 mg IVPUSH Q8H [facility] Mirtazapine (Remeron) 30 mg PO BEDTIME [facility] Mometasone Furoate/Formoterol Fumar (Dulera 200-5 Mcg) 2 puff IH BIDRT [facility] Last Admin: 11/29/16 21:21 Dose: 2 puff Nicotine (Habitrol) 7 mg TRDERM DAILY [facility] Nitroglycerin (Nitrostat) 0.4 mg SL Q5M PRN PRN Reason: Chest Pain Non-Formulary Medication (Polyvinyl Alcohol/Povidone/Pf [Refresh Classic Eye Drops]) 1 drop EYEBOTH TID [facility] Non-Formulary Medication (Umeclidinium [place] [Incruse Ellipta]) 62.5 mcg IH DAILY [facility] Potassium Chloride (Klor-Con 10) 10 meq PO DAILY [facility] Sodium Chloride (Saline Flush) 10 ml FLUSH ASDIRECTED PRN PRN Reason: Other Last Admin: 11/29/16 21:19 Dose: 10 ml Sodium Chloride (Saline Flush) 10 ml FLUSH ASDIRECTED PRN PRN Reason: Keep Vein Open Discontinued Medications Albuterol/Ipratropium (Duoneb 3.0-0.5 Mg/3 Ml) 3 ml NEB ONETIME ONE Stop: 11/29/16 10:51 Last Admin: 11/29/16 11:08 Dose: 3 ml Albuterol/Ipratropium (Duoneb 3.0-0.5 Mg/3 Ml) 3 ml NEB Q6H PRN PRN Reason: Dyspnea Last Admin: 11/29/16 23:24 Dose: 3 ml Fluticasone Propionate (Flonase) 0 gm NASBOTH DAILY [facility] Sodium Chloride (Normal Saline) 1,000 mls @ 125 mls/hr IV ASDIRECTED [facility] Last Admin: 11/29/16 14:41 Dose: 125 mls/hr Lorazepam (Ativan) 1 mg PO BID PRN PRN Reason: ANXIETY Last Admin: 11/29/16 23:39 Dose: 1 mg Magnesium Hydroxide (Milk Of Magnesia) ml PO DAILY [facility] Magnesium Hydroxide (Milk Of Magnesia) 30 ml PO DAILY PRN PRN Reason: Constipation Methylprednisolone Sodium Succinate (Solu-Medrol) 125 mg IVPUSH BID [facility] Last Admin: 11/29/16 21:18 Dose: 125 mg - Exam Quality Assessment: Supplemental Oxygen General: Alert, Mild Distress HEENT: Pupils Equal, Pupils Reactive, EOMI, Mucous Membr. Moist/[place] Neck: Supple Lungs: Decreased Breath Sounds, Wheezing, Other (tachypnea) Cardiovascular: Regular Rate, Regular Rhythm Extremities: Normal Inspection, Normal Range of Motion, Non-Tender, No Pedal Edema, Normal Capillary Refill Psy/Mental Status: Labile Mood, Anxious, Agitated - Problem List & Annotations (1) Supplemental oxygen dependent SNOMED Code(s): 731430092647 Code(s): Z99.81 - DEPENDENCE ON SUPPLEMENTAL OXYGEN Status: Chronic Current Visit: No Annotation/Comment:: baseline at home 3L. (2) Anxiety SNOMED Code(s): 02131987 Code(s): F41.9 - ANXIETY DISORDER, UNSPECIFIED Status: Chronic Current Visit: No (3) Pulmonary HTN SNOMED Code(s): 62237120 Code(s): I27.2 - OTHER SECONDARY PULMONARY HYPERTENSION Status: Acute Current Visit: Yes (4) Essential (primary) hypertension SNOMED Code(s): 99839115 Code(s): I10 - ESSENTIAL (PRIMARY) HYPERTENSION Status: Acute Current Visit: Yes (5) Hyponatremia SNOMED Code(s): 24348428 Code(s): E87.1 - HYPO-OSMOLALITY AND HYPONATREMIA Status: Acute Priority : Medium Current Visit: Yes Onset Date: 05/12/15 Annotation/Comment:: Hypervolemic hyponatremia. fluid restrict. sodium restrict. elevate legs. lasix if needed. recheck bmp this evening. strict i/o. (6) CHF (congestive heart failure), NYHA class III SNOMED Code(s): 933263899, 013182715 Code(s): I50.9 - HEART FAILURE, UNSPECIFIED Status: Chronic Priority: High Current Visit: No Qualifiers: Congestive heart failure type: diastolic Annotation/Comment:: Continue home meds. rule out nstemi, diuresis if required. support pulmonary function. set up for echo in house or outpt. dvt proph. follow ekg. 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 SNOMED Code(s): 25739532 Code(s): J43.9 - EMPHYSEMA, UNSPECIFIED Status: Acute Current Visit: Yes Qualifiers: Emphysema type: panlobular Qualified Code(s): J43.1 - Panlobular emphysema - Problem List Review Problem List Initiated/Reviewed/Updated: Yes - My Orders Last 24 Hours: My Active Orders 11/29/16 14:15 Sodium Chloride 0.9% [Saline Flush] 10 ml FLUSH ASDIRECTED PRN 11/29/16 19:14 Height and Weight [RC] DAILY Up With Assistance [RC] ASDIRECTED VTE/DVT Education [RC] Per Unit Routine Vital Signs [RC] Q8H Sodium Chloride 0.9% [Saline Flush] 10 ml FLUSH ASDIRECTED PRN Saline Lock Insert [OM.PC] Routine Resuscitation Status Routine 11/30/16 03:56 Albuterol/Ipratropium [DuoNeb 3.0-0.5 MG/3 ML] 3 ml NEB Q4H PRN 11/30/16 08:00 LORazepam [Ativan] 0.5 mg PO QID Sodium Chloride 0.9% @ 100 MLS/HR(1,000ml) Sodium Chloride 0.9% [Normal Saline] 1,000 ml IV ASDIRECTED busPIRone [Buspar] 15 mg PO BID methylPREDNISolone Sod Succ [Solu-MEDROL] 125 mg IVPUSH Q8H 11/30/16 09:00 Enoxaparin [Lovenox] 30 mg SUBCUT DAILY Fluticasone Propionate [Flonase] 0 gm NASBOTH DAILY 11/30/16 21:00 Mirtazapine [Remeron] 30 mg PO BEDTIME 12/01/16 05:11 B-TYPE NATRIURETIC PEPTIDE,BNP [CHEM] AM BASIC METABOLIC PANEL,BMP [CHEM] AM CBC WITH AUTO DIFF [HEME] AM - Plan Plan:: Increase Solu-Medrol 3 times a day. Continue SVNs. Increased frequency lorazepam 0.5 mg 4 times a day. Restart BuSpar. Repeat troponin BNP CHF sorry CBC in the morning. Restart IV fluids of sodium, and restrict free water. Discontinue Lasix.
[2016-11-30] MEDS: Carvedilol 6.25 MG Tab PO SCH ×2 (08:21→18:29)
[2016-11-30] MEDS: Albuterol 90 MCG/6.7 GM Inhaler INH SCH ×4 (08:21→20:51)
[2016-11-30] MEDS: LORazepam 0.5 MG Tab PO SCH ×5 (08:22→20:46)
[2016-11-30] MEDS: Nicotine 7 MG/24 Hr Patch TRDERM SCH (08:22)
[2016-11-30] MEDS: methylPREDNISolone Sodium Succinate 125 MG/2 ML SDV IVPUSH SCH ×2 (08:22→16:47)
[2016-11-30] MEDS: Potassium Chloride 10 MEQ Tab.ER PO SCH (08:22)
[2016-11-30] MEDS ORDERED: Non-Formulary Medication 1 Each (Umeclidinium Bromide [Incruse Ellipta] 62.5 MCG) IH SCH (09:00)
[2016-11-30] MEDS ORDERED: Fluticasone Propionate Nasal Spray 16 GM Bottle NASBOTH SCH ×2 (09:00)
[2016-11-30] MEDS ORDERED: Furosemide 40 MG Tab PO SCH (09:00)
[2016-11-30] MEDS ORDERED: Enoxaparin 30 MG/0.3 ML Syringe SUBCUT SCH (09:00)
[2016-11-30] MEDS ORDERED: Magnesium Hydroxide 400 MG/5 ML Susp 30 ML Cup PO SCH (09:00)
[2016-11-30] MEDS ORDERED: Mirtazapine 30 MG Tab PO SCH ×2 (09:00→21:00)
[2016-11-30] MEDS: Losartan 100 MG Tab PO SCH (09:03)
[2016-11-30] MEDS: busPIRone 15 MG Tab PO SCH ×2 (09:04→09:07)
[2016-11-30] MEDS: Sodium Chloride 0.9% 1,000 ML IV SCH ×2 (09:10→19:16)
[2016-11-30] MEDS: Enoxaparin 40 MG/0.4 ML Syringe SUBCUT SCH (10:24)
[2016-11-30] MEDS ORDERED: Acetaminophen 325 MG Tab PO PRN (13:13)
[2016-11-30] MEDS ORDERED: busPIRone 15 MG Tab PO SCH (21:00)
[2016-12-01] MEDS: methylPREDNISolone Sodium Succinate 125 MG/2 ML SDV IVPUSH SCH ×2 (00:25→08:32)
[2016-12-01] MEDS: Albuterol/Ipratropium 3.0-0.5 MG/3 ML Neb Soln NEB PRN ×3 (00:51→08:54)
[2016-12-01] MEDS: Levothyroxine 88 MCG Tab PO SCH (05:02)
[2016-12-01] MEDS: Sodium Chloride 0.9% 1,000 ML IV SCH (05:11)
[2016-12-01] MEDS: Formoterol/Mometasone 200-5 MCG 8.8 GM Inhaler IH SCH (06:00)
[2016-12-01] MEDS: Albuterol 90 MCG/6.7 GM Inhaler INH SCH (06:01)
[2016-12-01] MEDS ORDERED: Fluticasone Propionate Nasal Spray 16 GM Bottle NASBOTH SCH (07:52)
[2016-12-01] MEDS ORDERED: Formoterol/Mometasone 200-5 MCG 8.8 GM Inhaler IH SCH (07:56)
[2016-12-01] MEDS ORDERED: busPIRone 15 MG Tab PO SCH (08:00)
[2016-12-01] MEDS ORDERED: busPIRone 5 MG Tab PO SCH (08:00)
[2016-12-01] MEDS: Carvedilol 6.25 MG Tab PO SCH (08:31)
[2016-12-01] MEDS: Losartan 100 MG Tab PO SCH (08:32)
[2016-12-01] MEDS: LORazepam 0.5 MG Tab PO SCH (08:32)
[2016-12-01] MEDS: Nicotine 7 MG/24 Hr Patch TRDERM SCH (08:33)
[2016-12-01] MEDS: Potassium Chloride 10 MEQ Tab.ER PO SCH (08:34)
[2016-12-01 08:36] VITALS: BP 178/96
[2016-12-01] MEDS: Enoxaparin 40 MG/0.4 ML Syringe SUBCUT SCH (08:36)
--- NOTE | 2016-12-01 09:08 | PCM.PN ---
- General Info Date of Service: 12/01/16 Subjective Update: She had fairly good night except she gets extremely short of breath on speech and ambulation. She feels she is back to baseline electrical today. She denies any chest pain fever chills. Functional Status: Reports: Pain Controlled. Denies: Ambulating - Review of Systems General: Reports: Weakness HEENT: Reports: No Symptoms Pulmonary: Reports: Shortness of Breath. Denies: Cough Cardiovascular: Reports: No Symptoms Gastrointestinal: Reports: No Symptoms Psychiatric: Reports: Mood Lability - Patient Data Vitals - Most Recent: Last Vital Signs Temp 97.5 F 11/30/16 22:44 Pulse 106 H 12/01/16 08:31 Resp 20 11/30/16 22:44 BP 178/96 H 12/01/16 08:32 Pulse Ox 100 11/30/16 22:44 Weight - Most Recent: 52.526 kg I&O - Last 24 Hours: Intake & Output 11/30/16 12/01/16 12/01/16 22:59 06:59 14:59 Intake Total 1145 1080 Balance 1145 1080 Lab Results Last 24 Hours: Laboratory Results - last 24 hr 12/01/16 12/01/16 12/01/16 Range/Units 06:30 06:30 06:30 WBC 10.2 (4.5-12.0) X10-3/uL RBC 3.25 (3.23-5.20) x10(6)uL Hgb 9.6 L (11.5-15.5) g/dL Hct 28.7 L (30.0-51.3) % MCV 88.4 (80-96) fL MCH 29.5 (27.7-33.6) pg MCHC 33.3 (32.2-35.4) g/dL RDW 13.7 (11.5-15.5) % Plt Count 406 H (125-369) X10(3)uL MPV 7.7 (7.4-10.4) fL Add Manual Diff Yes Neutrophils % (Manual) 93 H (46-82) % Lymphocytes % (Manual) 4 L (13-37) % Monocytes % (Manual) 3 L (4-12) % Sodium 126 L (135-145) mmol/L Potassium 4.8 (3.5-5.3) mmol/L Chloride 89 L* D (100-110) mmol/L Carbon Dioxide 30 H (23-29) mmol/L BUN 17 (8-23) mg/dL Creatinine 0.8 (0.6-1.3) mg/dL Est Cr Clr Drug Dosing 45.10 mL/min Estimated GFR (MDRD) > 60 (>60) BUN/Creatinine Ratio 21.3 H (9-20) Glucose 138 H (80-116) mg/dL Calcium 8.9 (8.6-10.2) mg/dL B-Natriuretic Peptide 990 H (0-100) pg/mL Med Orders - Current: Current Medications Acetaminophen (Tylenol) 650 mg PO Q4H PRN PRN Reason: Pain Last Admin: 11/30/16 13:36 Dose: 650 mg Albuterol (Ventolin Hfa) 0 gm INH QIDRT [facility] Albuterol/Ipratropium (Duoneb 3.0-0.5 Mg/3 Ml) 3 ml NEB Q4H PRN PRN Reason: Dyspnea Last Admin: 12/01/16 08:54 Dose: 3 ml Buspirone HCl (Buspar) 15 mg PO BEDTIME [facility] Last Admin: 11/30/16 20:47 Dose: 15 mg Buspirone HCl (Buspar) 7.5 mg PO 0800,1200 [facility] Last Admin: 12/01/16 08:56 Dose: 7.5 mg Carvedilol (Coreg) 6.25 mg PO BIDMEALS [facility] Last Admin: 12/01/16 08:31 Dose: 6.25 mg Enoxaparin Sodium (Lovenox) 40 mg SUBCUT DAILY [facility] Last Admin: 12/01/16 08:36 Dose: Not Given Fluticasone Propionate (Flonase) 0 gm NASBOTH DAILY [facility] Last Admin: 12/01/16 08:32 Dose: 1 spray Sodium Chloride (Normal Saline) 1,000 mls @ 100 mls/hr IV ASDIRECTED [facility] Last Admin: 12/01/16 05:11 Dose: 100 mls/hr Levothyroxine Sodium (Synthroid) 88 mcg PO DAILY@0600 [facility] Last Admin: 12/01/16 05:02 Dose: 88 mcg Lorazepam (Ativan) 0.5 mg PO QID [facility] Last Admin: 12/01/16 08:32 Dose: 0.5 mg Losartan Potassium (Cozaar) 100 mg PO DAILY [facility] Last Admin: 12/01/16 08:32 Dose: 100 mg Methylprednisolone Sodium Succinate (Solu-Medrol) 125 mg IVPUSH Q8H [facility] Last Admin: 12/01/16 08:32 Dose: 125 mg Mirtazapine (Remeron) 30 mg PO BEDTIME [facility] Last Admin: 11/30/16 20:49 Dose: 30 mg Mometasone Furoate/Formoterol Fumar (Dulera 200-5 Mcg) 2 puff IH BIDRT [facility] Nicotine (Habitrol) 7 mg TRDERM DAILY [facility] Last Admin: 12/01/16 08:33 Dose: 7 mg Nitroglycerin (Nitrostat) 0.4 mg SL Q5M PRN PRN Reason: Chest Pain Non-Formulary Medication (Polyvinyl Alcohol/Povidone/Pf [Refresh Classic Eye Drops]) 1 drop EYEBOTH TID [facility] Non-Formulary Medication (Umeclidinium Ulman [Incruse Ellipta]) 62.5 mcg IH DAILY [facility] Potassium Chloride (Klor-Con 10) 10 meq PO DAILY [facility] Last Admin: 12/01/16 08:34 Dose: 10 meq Sodium Chloride (Saline Flush) 10 ml FLUSH ASDIRECTED PRN PRN Reason: Other Last Admin: 11/29/16 21:19 Dose: 10 ml Sodium Chloride (Saline Flush) 10 ml FLUSH ASDIRECTED PRN PRN Reason: Keep Vein Open Discontinued Medications Albuterol (Proventil Hfa) 0 puff INH QIDRT [facility] Last Admin: 12/01/16 06:01 Dose: Not Given Albuterol (Ventolin Hfa) 0 gm INH QIDRT [facility] Albuterol/Ipratropium (Duoneb 3.0-0.5 Mg/3 Ml) 3 ml NEB ONETIME ONE Stop: 11/29/16 10:51 Last Admin: 11/29/16 11:08 Dose: 3 ml Albuterol/Ipratropium (Duoneb 3.0-0.5 Mg/3 Ml) 3 ml NEB Q6H PRN PRN Reason: Dyspnea Last Admin: 11/29/16 23:24 Dose: 3 ml Buspirone HCl (Buspar) 15 mg PO BID [facility] Last Admin: 11/30/16 09:07 Dose: 15 mg Enoxaparin Sodium (Lovenox) 30 mg SUBCUT DAILY [facility] Last Admin: 11/30/16 08:22 Dose: 30 mg Fluticasone Propionate (Flonase) 0 gm NASBOTH DAILY [facility] Fluticasone Propionate (Flonase) 0 gm NASBOTH DAILY [facility] Last Admin: 11/30/16 09:03 Dose: 1 spray Furosemide (Lasix) 40 mg PO DAILY [facility] Sodium Chloride (Normal Saline) 1,000 mls @ 125 mls/hr IV ASDIRECTED [facility] Last Admin: 11/29/16 14:41 Dose: 125 mls/hr Lorazepam (Ativan) 1 mg PO BID PRN PRN Reason: ANXIETY Last Admin: 11/29/16 23:39 Dose: 1 mg Magnesium Hydroxide (Milk Of Magnesia) ml PO DAILY [facility] Magnesium Hydroxide (Milk Of Magnesia) 30 ml PO DAILY PRN PRN Reason: Constipation Methylprednisolone Sodium Succinate (Solu-Medrol) 125 mg IVPUSH BID [facility] Last Admin: 11/29/16 21:18 Dose: 125 mg Mometasone Furoate/Formoterol Fumar (Dulera 200-5 Mcg) 2 puff IH BIDRT [facility] Last Admin: 12/01/16 06:00 Dose: 2 puff - Exam Quality Assessment: Supplemental Oxygen General: Oriented, Cooperative, Mild Distress HEENT: Pupils Equal, Pupils Reactive, EOMI, Mucous Membr. Moist/[place] Neck: Supple Lungs: Decreased Breath Sounds, Rhonchi, Wheezing. No: Normal Respiratory Effort Cardiovascular: Regular Rate, Regular Rhythm - Problem List & Annotations (1) Supplemental oxygen dependent SNOMED Code(s): 657611939161 Code(s): Z99.81 - DEPENDENCE ON SUPPLEMENTAL OXYGEN Status: Chronic Current Visit: No Annotation/Comment:: baseline at home 3L. (2) Anxiety SNOMED Code(s): 61023206 Code(s): F41.9 - ANXIETY DISORDER, UNSPECIFIED Status: Chronic Current Visit: No (3) Pulmonary HTN SNOMED Code(s): 99401825 Code(s): I27.2 - OTHER SECONDARY PULMONARY HYPERTENSION Status: Acute Current Visit: Yes (4) Essential (primary) hypertension SNOMED Code(s): 24631076 Code(s): I10 - ESSENTIAL (PRIMARY) HYPERTENSION Status: Acute Current Visit: Yes (5) Hyponatremia SNOMED Code(s): 36165579 Code(s): E87.1 - HYPO-OSMOLALITY AND HYPONATREMIA Status: Acute Priority : Medium Current Visit: Yes Onset Date: 05/12/15 Annotation/Comment:: Hypervolemic hyponatremia. fluid restrict. sodium restrict. elevate legs. lasix if needed. recheck bmp this evening. strict i/o. (6) CHF (congestive heart failure), NYHA class III SNOMED Code(s): 108677681, 612547134 Code(s): I50.9 - HEART FAILURE, UNSPECIFIED Status: Chronic Priority: High Current Visit: No Qualifiers: Congestive heart failure type: diastolic Annotation/Comment:: Continue home meds. rule out nstemi, diuresis if required. support pulmonary function. set up for echo in house or outpt. dvt proph. follow ekg. 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 SNOMED Code(s): 32869791 Code(s): J43.9 - EMPHYSEMA, UNSPECIFIED Status: Acute Current Visit: Yes Qualifiers: Emphysema type: panlobular Qualified Code(s): J43.1 - Panlobular emphysema - Problem List Review Problem List Initiated/Reviewed/Updated: Yes - My Orders Last 24 Hours: My Active Orders 11/30/16 08:08 OT Evaluation and Treatment [CONS] Routine PT Evaluation and Treatment [CONS] Routine 11/30/16 09:00 Enoxaparin [Lovenox] 40 mg SUBCUT DAILY 11/30/16 13:13 Acetaminophen [Tylenol] 650 mg PO Q4H PRN 11/30/16 21:00 Mirtazapine [Remeron] 30 mg PO BEDTIME busPIRone [Buspar] 15 mg PO BEDTIME 12/01/16 07:52 Fluticasone Propionate [Flonase] 0 gm NASBOTH DAILY 12/01/16 08:00 busPIRone [Buspar] 7.5 mg PO 0800,1200 - Plan Plan:: Her sodium was up to 126 today. She is down to 3.5 L by nasal cannula. 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 She feels ready to go back to place. I will discharge her home on oral prednisone to finish total of 5 days and azithromycin for the anti-inflammatory motivation. Like her to see a physician Carmen Cifuentes by the end of this week. She might need home health to help with medications and follow-up.
[2016-12-01] MEDS ORDERED: Albuterol 8 GM Inhaler INH SCH ×2 (11:00)
--- NOTE | 2016-12-01 14:09 | CR ---
INDICATION: Dyspnea. CHEST: PA and lateral views of the chest 11/29/2016, were compared with 2016 and 06/14/2015, revealing the heart to be enlarged. The aorta is calcified in the arch area. A mild dextroconvex scoliosis of the thoracic spine is again noted. A definite active infiltrate or effusion was not identified. A nodular density is again noted in the upper middle lung field on the right and appears unchanged in size. Increased flattening of diaphragm leaves and interdigitation of diaphragm leaves with somewhat prominent AP diameter are compatible with progressive COPD and/or exacerbation of COPD. Mild degree of pectus excavatum deformity is noted. IMPRESSION: 1. Probable exacerbation of COPD. 2. ASHD with cardiomegaly. No CHF identified. 3. No definite pneumonia. 4. Mild scoliosis. No fracture, but cannot exclude demineralization, suggesting the possibility of osteoporosis. MTDD
--- NOTE | 2016-12-02 07:50 | DISCH ---
DISCHARGE DATE: 12/01/2016 REASON FOR ADMISSION: COPD exacerbation. DISCHARGE REASON: 1. End-stage COPD. 2. Anxiety. 3. Pulmonary hypertension. 4. Hypertension. 5. Hyponatremia. 6. History of heart failure. 7. History of CAD, encounter for Palliative Care. 8. Tobacco abuse syndrome. BRIEF HISTORY AND HOSPITAL COURSE: A 81-year-old female from home was brought in for difficulty in breathing, fairly sudden in onset. She had wheezing and markedly worsened with any ambulation. She is known to have COPD. A chest x- ray was unremarkable. She had a low sodium of 120. She was admitted for rehydration, IV Solu-Medrol, and continuation of SVNs. She also has anxiety. She was given Solu-Medrol, as mentioned above, and improved. Her sodium went up to 126 on discharge by IV fluids and withholding free water. She insisted she would like to go back home and was discharged home today on Levaquin 500 mg p.o. daily for a week, (even though pneumonia did not show up, I am using this for COPD exacerbation). I also sent her home on a total of 5 days of prednisone 20 mg twice a day. She will continue with her home medications as previously dictated. I spent more than 35 minutes in the discharge of the patient. /[id number] SHRAVAN/MIGUEL A
== END 2016-12-01 10:45 | disposition home or self-care (01) | DRG 191 ==
LOC: FB.ED 10:20 → FB.MS 13:21
PROVIDERS: ADMIT Family Medicine; ATTEND Family Medicine
DX: J44.1 Chronic obstructive pulmonary disease with (acute) exacerbation (principal); I50.30 Unspecified diastolic (congestive) heart failure; I10 Essential (primary) hypertension; E87.1 Hypo-osmolality and hyponatremia; R53.1 Weakness; R06.02 Shortness of breath; R05 Cough; F17.210 Nicotine dependence, cigarettes, uncomplicated; E03.9 Hypothyroidism, unspecified; Z99.81 Dependence on supplemental oxygen; Z51.5 Encounter for palliative care; I25.119 Atherosclerotic heart disease of native coronary artery with unspecified angina pectoris; I11.0 Hypertensive heart disease with heart failure; F41.9 Anxiety disorder, unspecified; K59.09 Other constipation; Z86.73 Personal history of transient ischemic attack (TIA), and cerebral infarction without residual deficits; M54.9 Dorsalgia, unspecified; G89.29 Other chronic pain; G47.30 Sleep apnea, unspecified; Z95.5 Presence of coronary angioplasty implant and graft; H54.7 Unspecified visual loss; I27.2 Other secondary pulmonary hypertension; Z85.3 Personal history of malignant neoplasm of breast; Z79.82 Long term (current) use of aspirin; Z79.52 Long term (current) use of systemic steroids; Z88.5 Allergy status to narcotic agent; Z88.8 Allergy status to other drugs, medicaments and biological substances
CPT/HCPCS: 36415; 71020; 80053; 81001; 84484; 85025; 93005; 94640; 99285; J7620; 80048; 83880; A9270-GY; J1650; J2930; J7040; J7050

== ENCOUNTER 2017-01-07 18:31 | Observation (INO) | payer MEDICARE, BC ==
[2017-01-07] MEDS ORDERED: Albuterol/Ipratropium 3.0-0.5 MG/3 ML Neb Soln NEB ONE (19:12)
[2017-01-07] MEDS ORDERED: methylPREDNISolone Sodium Succinate 125 MG/2 ML SDV IVPUSH ONE (19:12)
--- NOTE | 2017-01-07 19:51 | EDM.PDOC ---
ED HPI GENERAL MEDICAL PROBLEM - General Chief Complaint: Respiratory Problem Time Seen by Provider: 01/07/17 18:31 Source of Information: Reports: Patient, Family History Limitations: Reports: Physical Impairment, Respiratory Distress - History of Present Illness INITIAL COMMENTS - FREE TEXT/NARRATIVE: 81 y.o.w.f with a h/o COPD, came to the ed with her daughter to the ed because of SOB. Pt was recently seen and admitted to the hospital because of hyponatremia (124)> lasix was put on hold and her NA improved to 128. Pt noticed a worsening of her leg swelling as well which she attributes to fluid retention due to increase sodium intake. Per puls ox was 98% on 4 liters O2 by NC ( what she is on at home) When the patient was moved in to the bed, he pulse ox was shortly 88%. No C/P No F/C no N/V BP 152/60 Pulse 60 Pulse ox on 4 liter 98% Temp 35.1 Onset: Unknown/Unsure Onset Date: 01/02/17 Onset Time: 13:00 Duration: Day(s):, Constant Location: Reports: Chest, Lower Extremity, Left, Lower Extremity, Right Quality: Reports: Dull, Pressure, Same as Previous Episode Severity: Moderate Improves with: Reports: Rest Worsens with: Reports: Movement Context: Reports: Other (leg edema, SOB) Associated Symptoms: Reports: Shortness of Breath - Related Data Allergies Allergy/AdvReac Type Severity Reaction Status Date / Time codeine Allergy Nausea and Verified 01/07/17 18:49 Vomiting zolpidem tartrate Allergy Nausea and Verified 01/07/17 18:49 [From Ambien] Vomiting Home Meds: Home Meds Fluticasone/Salmeterol [Advair 500-50] 1 puff INH BID 07/05/14 [History] Nitroglycerin [Nitrostat] 0.4 mg SL Q5M PRN 07/05/14 [History] Carvedilol [Coreg] 6.25 mg PO BIDMEALS tablet 06/16/15 [Rx] Losartan [Cozaar] 100 mg PO DAILY tablet 06/16/15 [Rx] Furosemide [Lasix] 40 mg PO DAILY 11/29/16 [History] Levalbuterol HCl [Xopenex] 1 dose INH Q4H PRN 11/29/16 [History] Levothyroxine [Synthroid] 88 mcg PO DAILY 11/29/16 [History] Magnesium Hydroxide [Milk of Magnesia] 1 dose PO DAILY PRN 11/29/16 [History] Mirtazapine [Remeron] 30 mg PO BEDTIME 11/29/16 [History] Nicotine [Nicotine Patch] 1 patch TRDERM DAILY 11/29/16 [History] Polyvinyl Alcohol/Povidone/Pf [Refresh Classic Eye Drops] 1 drop EYEBOTH TID [History] Potassium Chloride [Klor-Con 10] 10 meq PO DAILY 11/29/16 [History] busPIRone [Buspar] 7.5 mg PO 08,12 11/29/16 [History] busPIRone [Buspar] 15 mg PO BEDTIME 11/29/16 [History] Acetaminophen [Tylenol] 325 mg PO BID PRN 12/01/16 [History] Aspirin [Halfprin] 162 mg PO DAILY 12/01/16 [History] Fluticasone Propionate [Flonase] 2 sprays NASBOTH DAILY 12/01/16 [History] LORazepam 1 mg PO BID PRN 12/01/16 [History] Doxycycline [Doxycycline Monohydrate] 100 mg PO BID 01/07/17 [History] Sodium Chloride 1 tab PO BID 01/07/17 [History] Past Medical History HEENT History: Reports: Cataract, Impaired Vision Cardiovascular History: Reports: Angina, High Cholesterol, Hypertension, SOB on Exertion, Stents Respiratory History: Reports: Bronchitis, Recurrent, COPD, Pneumonia, Recurrent , SOB Gastrointestinal History: Reports: Chronic Constipation, GERD, Hemorrhoids Genitourinary History: Reports: None, Urinary Incontinence [employer] History: Reports: Other OB/BYN History: IV PARA IV Musculoskeletal History: Reports: Arthritis, Back Pain, Chronic Neurological History: Reports: CVA, Migraines Psychiatric History: Reports: Addiction, Anxiety, Depression, Panic Attack Endocrine/Metabolic History: Reports: Hypothyroidism Hematologic History: Reports: None Oncologic (Cancer) History: Reports: Breast Other Oncologic History: L breast CA Dermatologic History: Reports: None - Infectious Disease History Infectious Disease History: Reports: Chicken Pox, Pertussis (Whooping Cough), Scarlet Fever - Past Surgical History Head Surgeries/Procedures: Reports: None HEENT Surgical History: Reports: Cataract Surgery Other HEENT Surgeries/Procedures: bilat cataract surg Cardiovascular Surgical History: Reports: Carotid Endarterectomy, Coronary Artery Stent Other Cardiovascular Surgeries/Procedures: R endarterectomy GI Surgical History: Reports: Colonoscopy Female Surgical History: Reports: Breast Biopsy, Tubal Ligation Endocrine Surgical History: Reports: None Neurological Surgical History: Reports: None Oncologic Surgical History: Reports: Biopsy of Breast Dermatological Surgical History: Reports: None Social & Family History - Family History Family Medical History: Noncontributory Cardiac: Reports: None Respiratory: Reports: None GI: Reports: None : Reports: None OBGYN: Reports: Musculoskeletal: Reports: None Neurological: Reports: None Psychiatric: Reports: None Endocrine/Metabolic: Reports: Hypoparathyroidism Hematologic: Reports: None Immunologic: Reports: None Dermatologic: Reports: None Oncologic: Reports: Esophageal, Ovarian - Tobacco Use Smoking Status *Q: Current Every Day Smoker Years of Tobacco use: 60 Packs/Tins Daily: 1 Used Tobacco, but Quit: No Month Tobacco Last Used: 06/05/14 Second Hand Smoke Exposure: No - Caffeine Use Caffeine Use: Reports: Coffee - Alcohol Use Days Per Week of Alcohol Use: 0 - Recreational Drug Use Recreational Drug Use: No - Living Situation & Occupation Living situation: Reports: ED ROS GENERAL - Review of Systems Review Of Systems: Unable To Obtain ED EXAM, GENERAL - Physical Exam Exam: See Below Exam Limited By: Respiratory Distress General Appearance: Alert, Mild Distress, Thin Eye Exam: Bilateral Eye: Normal Inspection Ears: Normal External Exam Ear Exam: Bilateral Ear: Auricle Normal Nose: Normal Inspection, Normal Mucosa Throat/Mouth: Normal Inspection, Normal Lips Head: Atraumatic, Normocephalic Neck: Normal Inspection, Supple, Non-Tender, Full Range of Motion Respiratory/Chest: Respiratory Distress, Decreased Breath Sounds, Prolonged Expiration, Other (distant breathsounds) Cardiovascular: Normal Peripheral Pulses, Regular Rate, Rhythm, Other ( nonpitting/pitting edema, minor) GI/Abdominal: Normal Bowel Sounds, Soft, Non-Tender (Female) Exam: Deferred Rectal (Female) Exam: Deferred Back Exam: Normal Inspection, Full Range of Motion Extremities: Normal Range of Motion, Pedal Edema Neurological: Alert, Oriented, CN II-XII Intact, Normal Cognition, Other (gate nottested, refused to get out of her wheelchair) Psychiatric: Normal Affect, Normal Mood Skin Exam: Warm, Dry, Intact, No Rash Lymphatic: No Adenopathy EKG INTERPRETATION EKG Date: 01/07/17 Time: 19:40 Rhythm: NSR Rate (Beats/Min): 54 [place]: Normal P-Wave: Present QRS: Normal ST-T: Normal QT: Normal Comparison: NA - No Prior EKG Course - Vital Signs Text/Narrative:: 81 y.o.w.f with a h/o COPD, came to the ed with her daughter to the ed because of SOB. Pt was recently seen and admitted to the hospital because of hyponatremia (124)> lasix was put on hold and her NA improved to 128. Pt noticed a worsening of her leg swelling as well which she attributes to fluid retention due to increase sodium intake. Per puls ox was 98% on 4 liters O2 by NC ( what she is on at home) When the patient was moved in to the bed, he pulse ox was shortly 88%. No C/P No F/C no N/V BP 152/60 Pulse 60 Pulse ox on 4 liter 98% Temp 35.1 PE: Thin 81 y.o.w.f in resp distress, COPD exacebation, with legedema 1+ pitting 2+ nonpitting edema. Labs: BNP 351, GFR < 40, Na 128 K 4.0 Cr 1.3 BUN 12 WBC 6.8 HGB 9.4 [place] 87 troponin 0.03 Imaging: CXR COPD, no infiltrate, nl HS no CHF, Nodule RUL 1.6 cm (possible CA ) read by RAD PHILIPP: NSR Impression: COPD exacerbation, Lympedema/pitting edema, BNP elevation (351), Hyponatremia (moderate), RUL nodule (CA?) Thx: Solumedrol, Duoneb, O2, MOM Reexam: Improved Plan: admit to [facility]. Last Recorded V/S: Last Vital Signs Temp 36.8 C 01/07/17 20:10 Pulse 54 L 01/07/17 20:10 Resp 20 01/07/17 20:10 BP 156/62 H 01/07/17 20:10 Pulse Ox 100 01/07/17 20:10 - Orders/Labs/Meds Orders: Active Orders 24 hr Category Date Time Status RT Aerosol Therapy [RC] ASDIRECTED Care 01/07/17 19:12 Active CXR [Chest 2V] [CR] Stat Exams 01/07/17 18:52 Taken Medication Orders Acetaminophen (Tylenol) 325 mg PO BID PRN PRN Reason: HEADACHE/FEVER Albuterol/Ipratropium (Duoneb 3.0-0.5 Mg/3 Ml) 3 ml INH Q4H PRN PRN Reason: Shortness Of Breath/wheezing Aspirin (Halfprin) 162 mg PO DAILY [facility] Buspirone HCl (Buspar) 7.5 mg PO [facility] Buspirone HCl (Buspar) 15 mg PO BEDTIME [facility] Carvedilol (Coreg) 6.25 mg PO BIDMEALS [facility] Docusate Sodium (Colace) 100 mg PO BID PRN PRN Reason: Constipation Doxycycline Monohydrate (Vibramycin) 100 mg PO BID [facility] Fluticasone Propionate (Flonase) gm NASBOTH DAILY [facility] Sodium Chloride (Normal Saline) 1,000 mls @ 80 mls/hr IV ASDIRECTED [facility] Levothyroxine Sodium (Synthroid) 88 mcg PO DAILY [facility] Lorazepam (Ativan) 1 mg PO BID PRN PRN Reason: Anxiety Losartan Potassium (Cozaar) 100 mg PO DAILY [facility] Magnesium Hydroxide (Milk Of Magnesia) ml PO DAILY PRN PRN Reason: Constipation Mirtazapine (Remeron) 30 mg PO BEDTIME [facility] Nicotine (Habitrol) mg TRDERM DAILY [facility] Nitroglycerin (Nitrostat) 0.4 mg SL Q5M PRN PRN Reason: Chest Pain Non-Formulary Medication (Fluticasone/Salmeterol [Advair 500-50]) 1 puff INH BID [facility] Non-Formulary Medication (Levalbuterol Hcl [Xopenex]) 1 dose INH Q4H PRN PRN Reason: Dyspnea Non-Formulary Medication (Polyvinyl Alcohol/Povidone/Pf [Refresh Classic Eye Drops]) 1 drop EYEBOTH TID [facility] Ondansetron HCl (Zofran) 4 mg IV Q4H PRN PRN Reason: Nausea/Vomiting Potassium Chloride (Klor-Con 10) 10 meq PO DAILY [facility] Sodium Chloride (Saline Flush) 10 ml FLUSH ASDIRECTED PRN PRN Reason: Keep Vein Open Sodium Chloride (Sodium Chloride) gm PO BID [facility] Labs: Laboratory Tests 01/07/17 01/07/17 01/07/17 Range/Units 19:10 19:10 19:10 WBC 6.8 (4.5-12.0) X10-3/uL RBC 3.19 L (3.23-5.20) x10(6)uL Hgb 9.4 L (11.5-15.5) g/dL Hct 28.3 L (30.0-51.3) % MCV 88.7 (80-96) fL MCH 29.4 (27.7-33.6) pg MCHC 33.2 (32.2-35.4) g/dL RDW 13.2 (11.5-15.5) % Plt Count 483 H (125-369) X10(3)uL MPV 7.3 L (7.4-10.4) fL Neut % (Auto) 67.5 (46-82) % Lymph % (Auto) 17.6 (13-37) % [place] % (Auto) 10.9 (4-12) % Eos % (Auto) 3 (1.0-5.0) % Baso % (Auto) 1 (0-2) % Neut # (Auto) 4.6 (1.6-8.3) # Lymph # (Auto) 1.2 (0.6-5.0) # [place] # (Auto) 0.7 (0.0-1.3) # Eos # (Auto) 0.2 (0.0-0.8) # Baso # (Auto) 0.1 (0.0-0.2) # PT (8.7-11.1) INR (0.89-1.13) Sodium 128 L (135-145) mmol/L Potassium 4.0 (3.5-5.3) mmol/L Chloride 87 L* (100-110) mmol/L Carbon Dioxide 35 H (23-29) mmol/L BUN 22 (8-23) mg/dL Creatinine 1.3 (0.6-1.3) mg/dL Est Cr Clr Drug Dosing 27.75 mL/min Estimated GFR (MDRD) 40 L (>60) BUN/Creatinine Ratio 16.9 (9-20) Glucose 130 H (80-116) mg/dL Calcium 8.4 L (8.6-10.2) mg/dL Troponin I 0.03 (0.02-0.06) NG/ML B-Natriuretic Peptide (0-100) pg/mL Urine Color (YELLOW) Urine Appearance (CLEAR) Urine pH (5.0-6.5) Ur Specific [place] (1.010-1.025) Urine Protein (NEGATIVE) mg/dL Urine Glucose (UA) (NEGATIVE) mg/dL Urine Ketones (NEGATIVE) mg/dL Urine Occult Blood (NEGATIVE) Urine Nitrite (NEGATIVE) Urine Bilirubin (NEGATIVE) Urine Urobilinogen (NEGATIVE) mg/dL Ur Leukocyte Esterase (NEGATIVE) Urine RBC (0) Urine WBC (0) Ur Squamous Epith Cells (NS,R,O) Urine Bacteria (NS) 01/07/17 01/07/17 01/07/17 Range/Units 19:10 19:10 20:00 WBC (4.5-12.0) X10-3/uL RBC (3.23-5.20) x10(6)uL Hgb (11.5-15.5) g/dL Hct (30.0-51.3) % MCV (80-96) fL MCH (27.7-33.6) pg MCHC (32.2-35.4) g/dL RDW (11.5-15.5) % Plt Count (125-369) X10(3)uL MPV (7.4-10.4) fL Neut % (Auto) (46-82) % Lymph % (Auto) (13-37) % [place] % (Auto) (4-12) % Eos % (Auto) (1.0-5.0) % Baso % (Auto) (0-2) % Neut # (Auto) (1.6-8.3) # Lymph # (Auto) (0.6-5.0) # [place] # (Auto) (0.0-1.3) # Eos # (Auto) (0.0-0.8) # Baso # (Auto) (0.0-0.2) # PT 10.5 (8.7-11.1) INR 1.04 (0.89-1.13) Sodium (135-145) mmol/L Potassium (3.5-5.3) mmol/L Chloride (100-110) mmol/L Carbon Dioxide (23-29) mmol/L BUN (8-23) mg/dL Creatinine (0.6-1.3) mg/dL Est Cr Clr Drug Dosing mL/min Estimated GFR (MDRD) (>60) BUN/Creatinine Ratio (9-20) Glucose (80-116) mg/dL Calcium (8.6-10.2) mg/dL Troponin I (0.02-0.06) NG/ML B-Natriuretic Peptide 351 H (0-100) pg/mL Urine Color Yellow (YELLOW) Urine Appearance Clear (CLEAR) Urine pH 5.0 (5.0-6.5) Ur Specific [place] 1.020 (1.010-1.025) Urine Protein Negative (NEGATIVE) mg/dL Urine Glucose (UA) Normal (NEGATIVE) mg/dL Urine Ketones Negative (NEGATIVE) mg/dL Urine Occult Blood Negative (NEGATIVE) Urine Nitrite Negative (NEGATIVE) Urine Bilirubin Negative (NEGATIVE) Urine Urobilinogen Normal (NEGATIVE) mg/dL Ur Leukocyte Esterase Negative (NEGATIVE) Urine RBC 0-5 (0) Urine WBC 0-5 (0) Ur Squamous Epith Cells Few H (NS,R,O) Urine Bacteria Few H (NS) Meds: Medications Generic Name Dose Route Start Last Admin Trade Name Freq PRN Reason Stop Dose Admin Acetaminophen 325 mg 01/07/17 21:41 Tylenol PO BID PRN HEADACHE/FEVER Albuterol/Ipratropium 3 ml 01/07/17 20:10 Duoneb 3.0-0.5 Mg/3 Ml INH Q4H PRN Shortness Of Breath/wheezing Aspirin 162 mg 01/08/17 09:00 Halfprin PO DAILY [facility] Buspirone HCl 7.5 mg 01/08/17 08:00 Buspar PO 08,12 [facility] Buspirone HCl 15 mg 01/08/17 21:00 Buspar PO BEDTIME [facility] Carvedilol 6.25 mg 01/08/17 08:00 Coreg PO BIDMEALS [facility] Docusate Sodium 100 mg 01/07/17 20:10 Colace PO BID PRN Constipation Doxycycline Monohydrate 100 mg 01/08/17 09:00 Vibramycin PO BID [facility] Fluticasone Propionate gm 01/08/17 09:00 Flonase NASBOTH DAILY [facility] Sodium Chloride 1,000 mls @ 80 mls/hr 01/07/17 20:15 Normal Saline IV ASDIRECTED [facility] Levothyroxine Sodium 88 mcg 01/08/17 09:00 Synthroid PO DAILY [facility] Lorazepam 1 mg 01/07/17 21:41 Ativan PO BID PRN Anxiety Losartan Potassium 100 mg 01/08/17 09:00 Cozaar PO DAILY [facility] Magnesium Hydroxide ml 01/07/17 21:41 Milk Of Magnesia PO DAILY PRN Constipation Mirtazapine 30 mg 01/08/17 21:00 Remeron PO BEDTIME [facility] Nicotine mg 01/08/17 09:00 Habitrol TRDERM DAILY [facility] Nitroglycerin 0.4 mg 01/07/17 21:41 Nitrostat SL Q5M PRN Chest Pain Non-Formulary Medication 1 puff 01/08/17 09:00 Fluticasone/Salmeterol [Advair 500-50] INH BID [facility] Non-Formulary Medication 1 dose 01/07/17 21:41 Levalbuterol Hcl [Xopenex] INH Q4H PRN Dyspnea Non-Formulary Medication 1 drop 01/08/17 09:00 Polyvinyl Alcohol/Povidone/Pf [Refresh Classic Eye Drops] EYEBOTH TID [facility] Ondansetron HCl 4 mg 01/07/17 20:10 Zofran IV Q4H PRN Nausea/Vomiting Potassium Chloride 10 meq 01/08/17 09:00 Klor-Con 10 PO DAILY [facility] Sodium Chloride 10 ml 01/07/17 20:10 Saline Flush FLUSH ASDIRECTED PRN Keep Vein Open Sodium Chloride gm 01/08/17 09:00 Sodium Chloride PO BID [facility] Discontinued Medications Generic Name Dose Route Start Last Admin Trade Name Freq PRN Reason Stop Dose Admin Albuterol/Ipratropium 3 ml 01/07/17 19:12 01/07/17 19:31 Duoneb 3.0-0.5 Mg/3 Ml NEB 01/07/17 19:13 3 ml ONETIME ONE Administration Methylprednisolone Sodium Succinate 125 mg 01/07/17 19:12 01/07/17 19:31 Solu-Medrol IVPUSH 01/07/17 19:13 125 mg ONETIME ONE Administration Departure - Departure Time of Disposition: 20:09 Disposition: Refer to Observation Condition: Fair Clinical Impression: COPD exacerbation, Lymphedema, Elevated brain natriuretic peptide (BNP) level, Hyponatremia - Discharge Information - My Orders Last 24 Hours: My Active Orders 01/07/17 18:52 CXR [Chest 2V] [CR] Stat 01/07/17 19:12 RT Aerosol Therapy [RC] ASDIRECTED - Assessment/Plan Last 24 Hours: My Active Orders 01/07/17 18:52 CXR [Chest 2V] [CR] Stat 01/07/17 19:12 RT Aerosol Therapy [RC] ASDIRECTED
[2017-01-07] MEDS ORDERED: Docusate Sodium 100 MG Cap PO PRN (20:10)
[2017-01-07] MEDS ORDERED: Sodium Chloride 0.9% 10 ML Syringe FLUSH PRN (20:10)
[2017-01-07] MEDS ORDERED: ALBUTEROL INH PRN (20:10)
[2017-01-07] MEDS ORDERED: Ondansetron 4 MG/2 ML SDV IV PRN (20:10)
[2017-01-07] MEDS ORDERED: IPRATROPIUM INH PRN (20:10)
[2017-01-07] MEDS ORDERED: Sodium Chloride 0.9% 1,000 ML IV SCH (20:15)
[2017-01-07] MEDS ORDERED: Acetaminophen 325 MG Tab PO PRN (21:41)
[2017-01-07] MEDS ORDERED: Nitroglycerin 0.4 MG Tab.SL *PTOM SL PRN (21:41)
[2017-01-07] MEDS ORDERED: MAGNESIUM HYDROXIDE 400 MG/5 ML PO PRN (21:41)
[2017-01-07] MEDS ORDERED: MIRTAZAPINE 30 MG PO ONE (22:30)
[2017-01-07] MEDS ORDERED: BUSPIRONE 15 MG PO ONE (22:30)
[2017-01-08] MEDS ORDERED: cloNIDine 0.1 MG Tab PO ONE (01:46)
[2017-01-08] MEDS: LORazepam 1 MG Tab PO PRN ×2 (02:15→14:23)
[2017-01-08] MEDS ORDERED: LEVOTHYROXINE 88 MCG PO ONE (06:00)
[2017-01-08] MEDS ORDERED: Carvedilol 6.25 MG Tab *PTOM PO SCH (08:00)
[2017-01-08] MEDS ORDERED: Aspirin 81 MG Tab.EC *PTOM PO SCH (09:00)
[2017-01-08] MEDS ORDERED: Losartan 100 MG Tab *PTOM PO SCH (09:00)
[2017-01-08] MEDS ORDERED: Doxycycline 100 MG Tab PO SCH (09:00)
[2017-01-08] MEDS ORDERED: NICOTINE 7 MG/24 HR TRDERM SCH (09:00)
[2017-01-08] MEDS ORDERED: Furosemide 40 MG Tab PO SCH (09:00)
[2017-01-08] MEDS ORDERED: Potassium Chloride 10 MEQ Tab.ER *PTOM PO SCH (09:00)
[2017-01-08] MEDS ORDERED: Non-Formulary Medication 1 Each (Fluticasone/Salmeterol [Advair 500-50] 1 PUFF) INH SCH (09:00)
[2017-01-08] MEDS ORDERED: SODIUM CHLORIDE 1 GM PO SCH (09:00)
[2017-01-08] MEDS ORDERED: Iopamidol 755 Mg/ML 75 ML Bottle IV ONE (09:12)
[2017-01-08] MEDS: BUSPIRONE 15 MG PO SCH ×2 (09:17→12:40)
[2017-01-08] MEDS: Carboxymethylcellulose Sodium 0.5% Ophth Soln 15 ML Bottle EYEBOTH SCH ×2 (09:28→14:22)
--- NOTE | 2017-01-08 09:31 | PCM.HP ---
H&P History of Present Illness - General Date of Service: 01/08/17 Admit Problem/Dx: Admission Diagnosis/Problem Admission Diagnosis/Problem COPD with acute lower respiratory infection Source of Information: Patient History Limitations: Reports: No Limitations - History of Present Illness Initial Comments - Free Text/Narative: This is a 81-year-old female patient came to ER last night with leg swelling and shortness of breath. She has a history of hyponatremia and was put on energy drinks is weak to get her sodium (she says it came up from 124-128. But then she states she started swelling in her legs and becoming more short of breath. She has a history of end-stage COPD. She denies fevers, chills, cough. She normally takes 4 L nasal cannula at home. She lives by herself and has home health come in twice a week. This morning she says the swelling is much improved. - Related Data Allergies/Adverse Reactions: Allergies Allergy/AdvReac Type Severity Reaction Status Date / Time codeine Allergy Nausea and Verified 01/07/17 18:49 Vomiting zolpidem tartrate Allergy Nausea and Verified 01/07/17 18:49 [From Ambien] Vomiting Home Medications: Home Meds Fluticasone/Salmeterol [Advair 500-50] 1 puff INH BID 07/05/14 [History] Nitroglycerin [Nitrostat] 0.4 mg SL Q5M PRN 07/05/14 [History] Carvedilol [Coreg] 6.25 mg PO BIDMEALS tablet 06/16/15 [Rx] Losartan [Cozaar] 100 mg PO DAILY tablet 06/16/15 [Rx] Furosemide [Lasix] 40 mg PO DAILY 11/29/16 [History] Levalbuterol HCl [Xopenex] 1 dose INH Q4H PRN 11/29/16 [History] Levothyroxine [Synthroid] 88 mcg PO DAILY 11/29/16 [History] Magnesium Hydroxide [Milk of Magnesia] 1 dose PO DAILY PRN 11/29/16 [History] Mirtazapine [Remeron] 30 mg PO BEDTIME 11/29/16 [History] Nicotine [Nicotine Patch] 1 patch TRDERM DAILY 11/29/16 [History] Polyvinyl Alcohol/Povidone/Pf [Refresh Classic Eye Drops] 1 drop EYEBOTH TID [History] Potassium Chloride [Klor-Con 10] 10 meq PO DAILY 11/29/16 [History] busPIRone [Buspar] 7.5 mg PO 08,12 11/29/16 [History] busPIRone [Buspar] 15 mg PO BEDTIME 11/29/16 [History] Acetaminophen [Tylenol] 325 mg PO BID PRN 12/01/16 [History] Aspirin [Halfprin] 162 mg PO DAILY 12/01/16 [History] Fluticasone Propionate [Flonase] 2 sprays NASBOTH DAILY 12/01/16 [History] LORazepam 1 mg PO BID PRN 12/01/16 [History] Doxycycline [Doxycycline Monohydrate] 100 mg PO BID 01/07/17 [History] Sodium Chloride 1 tab PO BID 01/07/17 [History] Past Medical History HEENT History: Reports: Cataract, Impaired Vision Cardiovascular History: Reports: Angina, High Cholesterol, Hypertension, SOB on Exertion, Stents Respiratory History: Reports: Bronchitis, Recurrent, COPD, Pneumonia, Recurrent , SOB Gastrointestinal History: Reports: Chronic Constipation, GERD, Hemorrhoids Genitourinary History: Reports: None, Urinary Incontinence [employer]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: Other OB/BYN History: IV PARA IV Musculoskeletal History: Reports: Arthritis, Back Pain, Chronic Neurological History: Reports: CVA, Migraines Psychiatric History: Reports: Addiction, Anxiety, Depression, Panic Attack Endocrine/Metabolic History: Reports: Hypothyroidism Hematologic History: Reports: None Oncologic (Cancer) History: Reports: Breast Other Oncologic History: L breast CA Dermatologic History: Reports: None - Infectious Disease History Infectious Disease History: Reports: Chicken Pox, Pertussis (Whooping Cough), Scarlet Fever - Past Surgical History Head Surgeries/Procedures: Reports: None HEENT Surgical History: Reports: Cataract Surgery Other HEENT Surgeries/Procedures: bilat cataract surg Cardiovascular Surgical History: Reports: Carotid Endarterectomy, Coronary Artery Stent Other Cardiovascular Surgeries/Procedures: R endarterectomy GI Surgical History: Reports: Colonoscopy Female Surgical History: Reports: Breast Biopsy, Tubal Ligation Endocrine Surgical History: Reports: None Neurological Surgical History: Reports: None Oncologic Surgical History: Reports: Biopsy of Breast Dermatological Surgical History: Reports: None Social & Family History - Family History Family Medical History: Noncontributory Cardiac: Reports: None Respiratory: Reports: None GI: Reports: None : Reports: None OBGYN: Reports: Musculoskeletal: Reports: None Neurological: Reports: None Psychiatric: Reports: None Endocrine/Metabolic: Reports: Hypoparathyroidism Hematologic: Reports: None Immunologic: Reports: None Dermatologic: Reports: None Oncologic: Reports: Esophageal, Ovarian - Tobacco Use Smoking Status *Q: Current Every Day Smoker Years of Tobacco use: 60 Packs/Tins Daily: 1 Used Tobacco, but Quit: No Month Tobacco Last Used: 06/05/14 Second Hand Smoke Exposure: No - Caffeine Use Caffeine Use: Reports: Coffee Other Caffeine Use: power aide - Alcohol Use Days Per Week of Alcohol Use: 0 - Recreational Drug Use Recreational Drug Use: No - Living Situation & Occupation Living situation: Reports: H&P Review of Systems - Review of Systems: Review Of Systems: See Below General: Reports: No Symptoms HEENT: Reports: No Symptoms Pulmonary: Reports: Shortness of Breath, Wheezing. Denies: Cough, Sputum, Hemoptysis Cardiovascular: Reports: Chest Pain (That's now resolved), Edema Gastrointestinal: Reports: No Symptoms Genitourinary: Reports: No Symptoms Musculoskeletal: Reports: No Symptoms Skin: Reports: No Symptoms Psychiatric: Reports: Depression, Anxiety Neurological: Reports: No Symptoms Hematologic/Lymphatic: Reports: No Symptoms Immunologic: Reports: No Symptoms Exam - Exam Exam: See Below - Vital Signs Vital Signs: Last Vital Signs Temp 97.6 F 01/08/17 05:35 Pulse 80 01/08/17 05:35 Resp 20 01/08/17 05:35 BP 181/83 H 01/08/17 05:35 Pulse Ox 100 01/08/17 05:35 Weight: 114 lb - Exam General: Alert, Oriented, Cooperative HEENT: PERRLA, Hearing Intact, Posterior Pharynx Clear, TMs Clear Neck: Supple, Trachea Midline, Full Range of Motion. No: Lymphadenopathy Lungs: Normal Respiratory Effort, Decreased Breath Sounds. No: Crackles, Rales , Rhonchi, Rub Cardiovascular: Regular Rate, Regular Rhythm. No: Bradycardia, Systolic Murmur GI/Abdominal Exam: Normal Bowel Sounds, Soft, Non-Tender, No Distention Back Exam: Normal Inspection Extremities: Pedal Edema (1+) Skin: Warm, Dry, Intact Neurological: Normal Speech, Normal Tone Neuro Extensive - Mental Status: Alert, Oriented x3, Normal Cognition Psychiatric: Alert, Normal Affect, Normal Mood - Patient Data Result Diagrams: 01/07/17 19:10 01/07/17 19:10 *Q Meaningful Use (ADM) - VTE *Q VTE Criteria *Q: - Stroke *Q Stroke Criteria *Q: - AMI *Q AMI Criteria *Q: - Problem List (1) COPD exacerbation SNOMED Code(s): 583081248 ICD Code: J44.1 - CHRONIC OBSTRUCTIVE PULMONARY DISEASE W (ACUTE) EXACERBATION Status: Acute Priority: High Current Visit: Yes Onset Date : 10/11/14 Problem Details: Admit. solumedrol. levofloxacin IV renal dosing. duonebs. IS. supplemental oxygen to keep sats greater than 92%. cxr. (2) Hyponatremia SNOMED Code(s): 62441347 ICD Code: E87.1 - HYPO-OSMOLALITY AND HYPONATREMIA Status: Acute Priority : Medium Current Visit: Yes Onset Date: 05/12/15 Problem Details: Hypervolemic hyponatremia. fluid restrict. sodium restrict. elevate legs. lasix if needed. recheck bmp this evening. strict i/o. (3) Palliative care patient SNOMED Code(s): 652421540 ICD Code: Z51.5 - ENCOUNTER FOR PALLIATIVE CARE Status: Acute Current Visit: No (4) Peripheral edema SNOMED Code(s): 218603885 ICD Code: R60.9 - EDEMA, UNSPECIFIED Status: Acute Current Visit: No Problem Details: elevate legs while seated or lying. (5) Anxiety SNOMED Code(s): 02007211 ICD Code: F41.9 - ANXIETY DISORDER, UNSPECIFIED Status: Chronic Current Visit: No (6) Pulmonary nodule SNOMED Code(s): 883280896 ICD Code: R91.1 - SOLITARY PULMONARY NODULE Status: Acute Current Visit: Yes Problem List Initiated/Reviewed/Updated: Yes Orders Last 24hrs: Active Orders 24 hr Category Date Time Status Chest w Cont [CT] Routine Exams 01/08/17 08:00 Ordered VL Duplex Lwr Ext Veins Comp [US] Routine Exams 01/08/17 09:59 Ordered BASIC METABOLIC PANEL,BMP [CHEM] AM Lab 01/08/17 08:30 Ordered Acetaminophen [Tylenol] Med 01/07/17 21:41 Active 325 mg PO BID PRN Aspirin [Halfprin] Med 01/08/17 09:00 Active 162 mg PO DAILY Carboxymethylcellulose Sodium [Refresh Tears 0.5%] Med 01/08/17 09:00 Active 0 ml EYEBOTH TID Carvedilol [Coreg] Med 01/08/17 08:00 Active 6.25 mg PO BIDMEALS Doxycycline [Vibramycin] Med 01/08/17 09:00 Active 100 mg PO BID Fluticasone Propionate [Flonase] Med 01/08/17 09:00 Active 0 gm NASBOTH DAILY Fluticasone/Salmeterol [Advair 500-50] Med 01/08/17 09:00 Active 1 puff INH BID Furosemide [Lasix] Med 01/08/17 09:00 Active 40 mg PO DAILY LORazepam [Ativan] Med 01/07/17 21:41 Active 1 mg PO BID PRN Levalbuterol HCl [Xopenex] Med 01/07/17 21:41 Active 1 dose INH Q4H PRN Levothyroxine [Synthroid] Med 01/09/17 06:00 Active 88 mcg PO 0600 Losartan [Cozaar] Med 01/08/17 09:00 Active 100 mg PO DAILY Magnesium Hydroxide [Milk of Magnesia] Med 01/07/17 21:41 Active 30 ml PO DAILY PRN Mirtazapine [Remeron] Med 01/08/17 21:00 Active 30 mg PO BEDTIME Nicotine [Habitrol] Med 01/08/17 09:00 Active 7 mg TRDERM DAILY Nitroglycerin [Nitrostat] Med 01/07/17 21:41 Active 0.4 mg SL Q5M PRN Potassium Chloride [Klor-Con 10] Med 01/08/17 09:00 Active 10 meq PO DAILY Sodium Chloride Med 01/08/17 09:00 Active 1 gm PO BID busPIRone [Buspar] Med 01/08/17 21:00 Active 15 mg PO BEDTIME busPIRone [Buspar] Med 01/08/17 08:00 Active 7.5 mg PO 08,12 Medication Orders Acetaminophen (Tylenol) 325 mg PO BID PRN PRN Reason: HEADACHE/FEVER Albuterol/Ipratropium (Duoneb 3.0-0.5 Mg/3 Ml) 3 ml INH Q4H PRN PRN Reason: Shortness Of Breath/wheezing Artificial Tears (Refresh Tears 0.5%) 0 ml EYEBOTH TID [facility] Aspirin (Halfprin) 162 mg PO DAILY [facility] Buspirone HCl (Buspar) 7.5 mg PO 08,12 [facility] Buspirone HCl (Buspar) 15 mg PO BEDTIME [facility] Carvedilol (Coreg) 6.25 mg PO BIDMEALS [facility] Docusate Sodium (Colace) 100 mg PO BID PRN PRN Reason: Constipation Doxycycline Monohydrate (Vibramycin) 100 mg PO BID [facility] Fluticasone Propionate (Flonase) 0 gm NASBOTH DAILY [facility] Furosemide (Lasix) 40 mg PO DAILY [facility] Sodium Chloride (Normal Saline) 1,000 mls @ 80 mls/hr IV ASDIRECTED [facility] Levothyroxine Sodium (Synthroid) 88 mcg PO 0600 [facility] Lorazepam (Ativan) 1 mg PO BID PRN PRN Reason: Anxiety Last Admin: 01/08/17 02:15 Dose: 1 mg Losartan Potassium (Cozaar) 100 mg PO DAILY [facility] Magnesium Hydroxide (Milk Of Magnesia) 30 ml PO DAILY PRN PRN Reason: Constipation Mirtazapine (Remeron) 30 mg PO BEDTIME [facility] Nicotine (Habitrol) 7 mg TRDERM DAILY [facility] Nitroglycerin (Nitrostat) 0.4 mg SL Q5M PRN PRN Reason: Chest Pain Non-Formulary Medication (Fluticasone/Salmeterol [Advair 500-50]) 1 puff INH BID [facility] (Levalbuterol Hcl [ Xopenex] Dose) Own Med 1 dose INH Q4H PRN PRN Reason: Dyspnea Last Admin: 01/08/17 05:49 Dose: 1 dose Admin: 01/08/17 01:25 Dose: 1 dose Ondansetron HCl (Zofran) 4 mg IV Q4H PRN PRN Reason: Nausea/Vomiting Potassium Chloride (Klor-Con 10) 10 meq PO DAILY [facility] Sodium Chloride (Saline Flush) 10 ml FLUSH ASDIRECTED PRN PRN Reason: Keep Vein Open Sodium Chloride (Sodium Chloride) 1 gm PO BID [facility] Assessment/Plan Comment:: 1. Admit for observation. 2. She was given Solu-Medrol IV 1. Will not be repeated 3. CT scan of the lungs to recheck lung nodule. Last CT was 2014. They thought it was scarring at that time. 4. DC Doppler 5. Up ad keyla. with wheelchair. 6. Repeat panel 8. 7. Discussed with the patient is she is a DNR. 8. Restart home medications. 9. Fluid restriction to 1500 mL a day.
[2017-01-08 12:59] VITALS: BP 161/71
--- NOTE | 2017-01-08 13:58 | PCM.SN ---
- Free Text/Narrative Note: He shouldn't felt much better in the morning and results back to normal or swelling was better. She refuses IV fluids. CT scan was set up because a lung nodule. That was looked at 2014. The patient went down for she refused that she didn't take her make a difference with her end-stage COPD. I canceled the Doppler of her legs because her leg swelling was down bilaterally. We'll discharge to home on home health with a fluid restricted diet. I talked her that I was concerned about her sodium pills that she takes. But she is has confidence in her provider who I also talked to so we'll get early follow-up with a sodium.
--- NOTE | 2017-01-08 14:05 | PCM.DCSUM1 ---
Discharge Summary - Hospital Course Free Text/Narrative:: Hospital course-patient was admitted and given 1 dose of steroids. Because she was swollen and the doctor initially ordered IV fluids but she refused. By the morning her swelling was better and her breathing was back to normal. She has a history of severe end-stage COPD. She has not no coughing but some shortness of breath is now resolved. She uses 4 L of oxygen at home and she still maintaining her pulse ox greater than 90% on 4 L. Sodium is 128 when she came in. In the morning was 127. She is put on a fluid restricted diet. I chest x- ray there is no signs of pneumonia or CHF. A pulmonary nodule. I reviewed the old chart and CT scan was done in 2014 and they thought it was scarring. It hasn't gotten bigger so the admitting doctor ordered a repeat CT. She went down for but then because of his end-stage COPD she deferred it for now. Dopplers of her legs for stopping further done because the leg swelling went down and very minimal history for DVT. Patient will be discharged on home health with a fluid restricted diet to 1500 mL a day. Brief History: This is a 81-year-old female patient came to ER last night with leg swelling and shortness of breath. She has a history of hyponatremia and was put on energy drinks is weak to get her sodium (she says it came up from 124- 128. But then she states she started swelling in her legs and becoming more short of breath. She has a history of end-stage COPD. She denies fevers, chills , cough. She normally takes 4 L nasal cannula at home. She lives by herself and has home health come in twice a week. This morning she says the swelling is much improved. - Discharge Data Discharge Date: 01/08/17 Discharge Disposition: Home, W Home Health Agency 06 Condition: Fair - Discharge Diagnosis/Problem(s) (1) COPD exacerbation SNOMED Code(s): 632148510 ICD Code: J44.1 - CHRONIC OBSTRUCTIVE PULMONARY DISEASE W (ACUTE) EXACERBATION Status: Acute Priority: High Current Visit: Yes Onset Date : 10/11/14 Problem Details: Admit. solumedrol. levofloxacin IV renal dosing. duonebs. IS. supplemental oxygen to keep sats greater than 92%. cxr. (2) Hyponatremia SNOMED Code(s): 40874667 ICD Code: E87.1 - HYPO-OSMOLALITY AND HYPONATREMIA Status: Acute Priority : Medium Current Visit: Yes Onset Date: 05/12/15 Problem Details: Hypervolemic hyponatremia. fluid restrict. sodium restrict. elevate legs. lasix if needed. recheck bmp this evening. strict i/o. (3) Palliative care patient SNOMED Code(s): 991140676 ICD Code: Z51.5 - ENCOUNTER FOR PALLIATIVE CARE Status: Acute Current Visit: No (4) Peripheral edema SNOMED Code(s): 413690606 ICD Code: R60.9 - EDEMA, UNSPECIFIED Status: Acute Current Visit: No Problem Details: elevate legs while seated or lying. (5) Anxiety SNOMED Code(s): 78560563 ICD Code: F41.9 - ANXIETY DISORDER, UNSPECIFIED Status: Chronic Current Visit: No (6) Pulmonary nodule SNOMED Code(s): 286193493 ICD Code: R91.1 - SOLITARY PULMONARY NODULE Status: Acute Current Visit: Yes - Patient Instructions Diet: Regular Diet as Tolerated Fluid Restriction: 1500 mL Activity: As Tolerated Driving: Do Not Drive Showering/Bathing: May Shower Notify Provider of: Fever, Swelling and Redness, Drainage - Discharge Plan Home Medications: Home Meds Fluticasone/Salmeterol [Advair 500-50] 1 puff INH BID 07/05/14 [History] Nitroglycerin [Nitrostat] 0.4 mg SL Q5M PRN 07/05/14 [History] Carvedilol [Coreg] 6.25 mg PO BIDMEALS tablet 06/16/15 [Rx] Losartan [Cozaar] 100 mg PO DAILY tablet 06/16/15 [Rx] Furosemide [Lasix] 40 mg PO DAILY 11/29/16 [History] Levalbuterol HCl [Xopenex] 1 dose INH Q4H PRN 11/29/16 [History] Levothyroxine [Synthroid] 88 mcg PO DAILY 11/29/16 [History] Magnesium Hydroxide [Milk of Magnesia] 1 dose PO DAILY PRN 11/29/16 [History] Mirtazapine [Remeron] 30 mg PO BEDTIME 11/29/16 [History] Nicotine [Nicotine Patch] 1 patch TRDERM DAILY 11/29/16 [History] Polyvinyl Alcohol/Povidone/Pf [Refresh Classic Eye Drops] 1 drop EYEBOTH TID [History] Potassium Chloride [Klor-Con 10] 10 meq PO DAILY 11/29/16 [History] busPIRone [Buspar] 7.5 mg PO 08,12 11/29/16 [History] busPIRone [Buspar] 15 mg PO BEDTIME 11/29/16 [History] Acetaminophen [Tylenol] 325 mg PO BID PRN 12/01/16 [History] Aspirin [Halfprin] 162 mg PO DAILY 12/01/16 [History] Fluticasone Propionate [Flonase] 2 sprays NASBOTH DAILY 12/01/16 [History] LORazepam 1 mg PO BID PRN 12/01/16 [History] Doxycycline [Vibramycin] 100 mg PO BID 01/07/17 [History] Sodium Chloride 1 tab PO BID 01/07/17 [History] Patient Handouts: Smoking Cessation, Tips for Success, [id number], Fall Prevention in the Home, Inxr-yx-Atme, Venous Thromboembolism Prevention Forms: ED Department Discharge Referrals: Angela Cifuentes, CUSTOMER ASSOCIATE [Primary Care Provider] - - Discharge Summary/Plan Comment DC Time >30 min.: No Discharge Summary/Plan Comment: 1. Recheck with Angela Cifuentes in 4 days with a BMP 2. Home health in regards to med management especially training on a 1500 mL fluid restriction. 3. Discuss with her primary provider about the nodule or lung. - Patient Data Vitals - Most Recent: Last Vital Signs Temp 97.1 F 01/08/17 12:00 Pulse 70 01/08/17 12:00 Resp 20 01/08/17 12:00 BP 161/71 H 01/08/17 12:00 Pulse Ox 100 01/08/17 12:19 Weight - Most Recent: 114 lb I&O - Last 24 hours: Intake & Output 01/07/17 01/08/17 01/08/17 22:59 06:59 14:59 Intake Total 0 Balance 0 Lab Results - Last 24 hrs: Laboratory Results - last 24 hr 01/08/17 Range/Units 09:15 Sodium 127 L (135-145) mmol/L Potassium 4.5 (3.5-5.3) mmol/L Chloride 88 L* (100-110) mmol/L Carbon Dioxide 31 H (23-29) mmol/L BUN 20 (8-23) mg/dL Creatinine 1.1 (0.6-1.3) mg/dL Est Cr Clr Drug Dosing 32.80 mL/min Estimated GFR (MDRD) 48 L (>60) BUN/Creatinine Ratio 18.2 (9-20) Glucose 214 H D (80-116) mg/dL Calcium 8.5 L (8.6-10.2) mg/dL Med Orders - Current: Current Medications Acetaminophen (Tylenol) 325 mg PO BID PRN PRN Reason: HEADACHE/FEVER Albuterol/Ipratropium (Duoneb 3.0-0.5 Mg/3 Ml) 3 ml INH Q4H PRN PRN Reason: Shortness Of Breath/wheezing Last Admin: 01/08/17 12:55 Dose: 3 ml Artificial Tears (Refresh Tears 0.5%) 0 ml EYEBOTH TID [facility] Last Admin: 01/08/17 09:28 Dose: 1 drop Aspirin (Halfprin) 162 mg PO DAILY [facility] Last Admin: 01/08/17 09:25 Dose: 162 mg Buspirone HCl (Buspar) 7.5 mg PO 08,12 [facility] Last Admin: 01/08/17 12:40 Dose: 7.5 mg Buspirone HCl (Buspar) 15 mg PO BEDTIME [facility] Carvedilol (Coreg) 6.25 mg PO BIDMEALS [facility] Last Admin: 01/08/17 09:18 Dose: 6.25 mg Docusate Sodium (Colace) 100 mg PO BID PRN PRN Reason: Constipation Doxycycline Monohydrate (Vibramycin) 100 mg PO BID [facility] Last Admin: 01/08/17 09:29 Dose: 100 mg Fluticasone Propionate (Flonase) 0 gm NASBOTH DAILY [facility] Last Admin: 01/08/17 09:22 Dose: 2 spray Furosemide (Lasix) 40 mg PO DAILY [facility] Last Admin: 01/08/17 09:41 Dose: 40 mg Sodium Chloride (Normal Saline) 1,000 mls @ 80 mls/hr IV ASDIRECTED [facility] Levothyroxine Sodium (Synthroid) 88 mcg PO 0600 [facility] Lorazepam (Ativan) 1 mg PO BID PRN PRN Reason: Anxiety Last Admin: 01/08/17 02:15 Dose: 1 mg Losartan Potassium (Cozaar) 100 mg PO DAILY [facility] Last Admin: 01/08/17 09:21 Dose: 100 mg Magnesium Hydroxide (Milk Of Magnesia) 30 ml PO DAILY PRN PRN Reason: Constipation Mirtazapine (Remeron) 30 mg PO BEDTIME [facility] Nicotine (Habitrol) 7 mg TRDERM DAILY [facility] Last Admin: 01/08/17 09:26 Dose: 7 mg Nitroglycerin (Nitrostat) 0.4 mg SL Q5M PRN PRN Reason: Chest Pain Non-Formulary Medication (Fluticasone/Salmeterol [Advair 500-50]) 1 puff INH BID [facility] Last Admin: 01/08/17 09:22 Dose: 1 puff (Levalbuterol Hcl [ Xopenex] Dose) Own Med 1 dose INH Q4H PRN PRN Reason: Dyspnea Last Admin: 01/08/17 09:58 Dose: 1 dose Ondansetron HCl (Zofran) 4 mg IV Q4H PRN PRN Reason: Nausea/Vomiting Potassium Chloride (Klor-Con 10) 10 meq PO DAILY [facility] Last Admin: 01/08/17 09:28 Dose: 10 meq Sodium Chloride (Saline Flush) 10 ml FLUSH ASDIRECTED PRN PRN Reason: Keep Vein Open Sodium Chloride (Sodium Chloride) 1 gm PO BID [facility] Last Admin: 01/08/17 09:29 Dose: 1 gm Discontinued Medications Albuterol/Ipratropium (Duoneb 3.0-0.5 Mg/3 Ml) 3 ml NEB ONETIME ONE Stop: 01/07/17 19:13 Last Admin: 01/07/17 19:31 Dose: 3 ml Buspirone HCl (Buspar) 15 mg PO ONETIME ONE Stop: 01/07/17 22:31 Last Admin: 01/07/17 22:39 Dose: 15 mg Clonidine HCl (Catapres) 0.1 mg PO ONETIME ONE Stop: 01/08/17 01:47 Last Admin: 01/08/17 02:14 Dose: 0.1 mg Iopamidol (Isovue-370 (76%)) 75 ml IV ASDIRECTED ONE Stop: 01/08/17 09:13 Levothyroxine Sodium (Synthroid) 88 mcg PO ONETIME ONE Stop: 01/08/17 06:01 Last Admin: 01/08/17 06:02 Dose: 88 mcg Methylprednisolone Sodium Succinate (Solu-Medrol) 125 mg IVPUSH ONETIME ONE Stop: 01/07/17 19:13 Last Admin: 01/07/17 19:31 Dose: 125 mg Mirtazapine (Remeron) 30 mg PO ONETIME ONE Stop: 01/07/17 22:31 Last Admin: 01/07/17 22:39 Dose: 30 mg *Q Meaningful Use (DIS) - VTE *Q VTE Criteria *Q: - Stroke *Q Stroke Criteria *Q: - AMI *Q AMI Criteria *Q:
[2017-01-08] MEDS ORDERED: BUSPIRONE 15 MG PO SCH (21:00)
[2017-01-08] MEDS ORDERED: MIRTAZAPINE 30 MG PO SCH (21:00)
[2017-01-09] MEDS ORDERED: LEVOTHYROXINE 88 MCG PO SCH (06:00)
== END 2017-01-08 16:50 | disposition home health service (06) ==
LOC: FB.ED 18:31 → FB.MS 19:32 → UNDOADMOB 19:32 → FB.MS 20:10
PROVIDERS: ADMIT Emergency Medicine; ATTEND Family Medicine
DX: J44.1 Chronic obstructive pulmonary disease with (acute) exacerbation (principal); E87.1 Hypo-osmolality and hyponatremia; R60.9 Edema, unspecified; F41.9 Anxiety disorder, unspecified; R91.1 Solitary pulmonary nodule; Z51.5 Encounter for palliative care; I10 Essential (primary) hypertension; E78.00 Pure hypercholesterolemia, unspecified; K21.9 Gastro-esophageal reflux disease without esophagitis; E03.9 Hypothyroidism, unspecified; K59.09 Other constipation; Z79.82 Long term (current) use of aspirin; Z79.899 Other long term (current) drug therapy; Z88.8 Allergy status to other drugs, medicaments and biological substances; Z95.5 Presence of coronary angioplasty implant and graft; Z98.890 Other specified postprocedural states; Z98.51 Tubal ligation status; F17.210 Nicotine dependence, cigarettes, uncomplicated
CPT/HCPCS: 36415; 71020; 80048; 81001; 83880; 84484; 85025; 85610; 94640; 96374; 99285; A9270; G0378; J2930; J7620; 99236; J7040

== ENCOUNTER 2017-02-02 16:27 | Observation (INO) | payer MEDICARE, BC ==
[2017-02-02] MEDS ORDERED: Furosemide 20 MG/2 ML VIAL IVPUSH ONE ×2 (17:51→22:42)
[2017-02-02] MEDS ORDERED: Spironolactone 25 MG Tab PO ONE (17:52)
--- NOTE | 2017-02-02 17:58 | EDM.PDOC ---
ED HPI GENERAL MEDICAL PROBLEM - General Chief Complaint: Cardiovascular Problem Stated Complaint: FLUID RETENTION IN LEGS Time Seen by Provider: 02/02/17 16:30 Source of Information: Reports: Patient, Family, Old Records History Limitations: Reports: No Limitations - History of Present Illness INITIAL COMMENTS - FREE TEXT/NARRATIVE: Yun returns to [facility] ED with a reported 8# wt gain over the past week, SOB, painful legs from swelling, and malaise. She has been hospitalized x 2 in recent months for CHF, hyponatremia, COPD, and CKD. She is reportedly compliant with meds including salt tabs and fluid restriction to improve electrolytes. She denies chest pains, PNA or PND, palpitations or dizziness. Treatments [employer]: Reports: Oxygen, Other (see below) Other Treatments [employer]: home o2 - Related Data Allergies Allergy/AdvReac Type Severity Reaction Status Date / Time codeine Allergy Nausea and Verified 02/02/17 17:10 Vomiting zolpidem tartrate Allergy Nausea and Verified 02/02/17 17:10 [From Ambien] Vomiting Home Meds: Home Meds Fluticasone/Salmeterol [Advair 500-50] 1 puff INH BID 07/05/14 [History] Nitroglycerin [Nitrostat] 0.4 mg SL Q5M PRN 07/05/14 [History] Carvedilol [Coreg] 6.25 mg PO BIDMEALS tablet 06/16/15 [Rx] Losartan [Cozaar] 100 mg PO DAILY tablet 06/16/15 [Rx] Furosemide [Lasix] 40 mg PO DAILY 11/29/16 [History] Levothyroxine [Synthroid] 88 mcg PO DAILY 11/29/16 [History] Magnesium Hydroxide [Milk of Magnesia] 1 dose PO DAILY PRN 11/29/16 [History] Mirtazapine [Remeron] 30 mg PO BEDTIME 11/29/16 [History] Nicotine [Nicotine Patch] 14 mg TRDERM DAILY 11/29/16 [History] Polyvinyl Alcohol/Povidone/Pf [Refresh Classic Eye Drops] 1 drop EYEBOTH TID [History] Potassium Chloride [Klor-Con 10] 10 meq PO DAILY 11/29/16 [History] busPIRone [Buspar] 7.5 mg PO 08,12 11/29/16 [History] busPIRone [Buspar] 15 mg PO BEDTIME 11/29/16 [History] Acetaminophen [Tylenol] 325 mg PO BID PRN 12/01/16 [History] Aspirin [Halfprin] 162 mg PO DAILY 12/01/16 [History] Fluticasone Propionate [Flonase] 2 sprays NASBOTH DAILY 12/01/16 [History] LORazepam 0.5 - 1 mg PO BID PRN 12/01/16 [History] Sodium Chloride 1 tab PO BID 01/07/17 [History] Levalbuterol HCl 1 inh INH Q4H PRN 02/02/17 [History] Omeprazole 20 mg PO DAILY 02/02/17 [History] predniSONE [Prednisone] 2 mg PO DAILY 02/02/17 [History] Past Medical History HEENT History: Reports: Cataract, Impaired Vision Cardiovascular History: Reports: Angina, CAD, Cardiomyopathy (HFpEF), High Cholesterol, Hypertension, SOB on Exertion, Stents Respiratory History: Reports: Bronchitis, Recurrent, COPD, Pneumonia, Recurrent , SOB Gastrointestinal History: Reports: Chronic Constipation, GERD, Hemorrhoids Genitourinary History: Reports: None, Chronic Renal Insuffiency, Urinary Incontinence [employer] History: Reports: Other OB/BYN History: IV PARA IV Musculoskeletal History: Reports: Arthritis, Back Pain, Chronic Neurological History: Reports: CVA, Migraines Psychiatric History: Reports: Addiction, Anxiety, Depression, Panic Attack Endocrine/Metabolic History: Reports: Hypothyroidism Hematologic History: Reports: None, Anemia Oncologic (Cancer) History: Reports: Breast Other Oncologic History: L breast CA Dermatologic History: Reports: None - Infectious Disease History Infectious Disease History: Reports: Chicken Pox, Pertussis (Whooping Cough), Scarlet Fever - Past Surgical History Head Surgeries/Procedures: Reports: None HEENT Surgical History: Reports: Cataract Surgery Other HEENT Surgeries/Procedures: bilat cataract surg Cardiovascular Surgical History: Reports: Carotid Endarterectomy, Coronary Artery Stent Other Cardiovascular Surgeries/Procedures: R endarterectomy GI Surgical History: Reports: Colonoscopy Female Surgical History: Reports: Breast Biopsy, Tubal Ligation Endocrine Surgical History: Reports: None Neurological Surgical History: Reports: None Oncologic Surgical History: Reports: Biopsy of Breast Dermatological Surgical History: Reports: None Social & Family History - Family History Family Medical History: Noncontributory Cardiac: Reports: None Respiratory: Reports: None GI: Reports: None : Reports: None OBGYN: Reports: Musculoskeletal: Reports: None Neurological: Reports: None Psychiatric: Reports: None Endocrine/Metabolic: Reports: Hypoparathyroidism Hematologic: Reports: None Immunologic: Reports: None Dermatologic: Reports: None Oncologic: Reports: Esophageal, Ovarian - Tobacco Use Smoking Status *Q: Former Smoker Years of Tobacco use: 60 Packs/Tins Daily: 1 Used Tobacco, but Quit: Yes Month Tobacco Last Used: 2 Second Hand Smoke Exposure: No - Caffeine Use Caffeine Use: Reports: None Other Caffeine Use: power aide - Alcohol Use Days Per Week of Alcohol Use: 0 - Recreational Drug Use Recreational Drug Use: No - Living Situation & Occupation Living situation: Reports: ED ROS GENERAL - Review of Systems Review Of Systems: See Below Constitutional: Reports: Malaise, Weakness, Weight Gain HEENT: Reports: No Symptoms Respiratory: Reports: Shortness of Breath Cardiovascular: Reports: Dyspnea on Exertion, Edema Endocrine: Reports: Fatigue GI/Abdominal: Reports: No Symptoms : Reports: No Symptoms Musculoskeletal: Reports: No Symptoms Skin: Reports: Other (edema of legs) Neurological: Reports: No Symptoms Psychiatric: Reports: Anxiety Hematologic/Lymphatic: Reports: Anemia Immunologic: Reports: No Symptoms ED EXAM, GENERAL - Physical Exam Exam: See Below Exam Limited By: No Limitations General Appearance: Alert, WD/WN, Lethargic Throat/Mouth: Normal Inspection, Normal Oropharynx Head: Normocephalic Neck: Normal Inspection, Supple, Non-Tender, Full Range of Motion Respiratory/Chest: Chest Non-Tender, Decreased Breath Sounds, Retractions, Prolonged Expiration Cardiovascular: Regular Rate, Rhythm, JVD, Other (JVD to 1 ") GI/Abdominal: Normal Bowel Sounds, Soft, Non-Tender, No Organomegaly, No Mass, Distended (possible ascites) Rectal (Female) Exam: Deferred Back Exam: Normal Inspection, Full Range of Motion Extremities: Leg Pain (edema to thighs) Neurological: Alert, Oriented, Normal Cognition Psychiatric: Normal Affect, Normal Mood (neutral) Skin Exam: Warm, Dry, Intact Lymphatic: No Adenopathy Course - Vital Signs Text/Narrative:: Yun was evaluated in the [facility] ED, and her HFpEF was managed with nasal 02, elevate HOB, IV lasix 20 mg, and Aldactone 25 mg po. Her BNP has increased to 3297 over the past 2 mos. Her Na 130 meq/l, Cl 89 meq/l has improved. her Hgb 8.5 gms with normocytic cell indicies may be dilutional. A fluid wave and some ascites is suspected. Her chest x ray noted no active infiltrates or effusions. Last Recorded V/S: Last Vital Signs Temp 36.4 C 02/02/17 18:45 Pulse 72 02/02/17 18:45 Resp 20 02/02/17 18:45 BP 143/56 H 02/02/17 18:45 Pulse Ox 100 02/02/17 18:45 - Orders/Labs/Meds Orders: Active Orders 24 hr Category Date Time Status Chest 1V Frontal [CR] Stat Exams 02/02/17 16:47 Taken Sodium Chloride 0.9% [Saline Flush] Med 02/02/17 16:42 Active 10 ml FLUSH ASDIRECTED PRN Saline Lock Insert [OM.PC] Routine Oth 02/02/17 16:42 Ordered EKG 12 Lead [EK] Routine Ther 02/02/17 16:47 Stop Req Medication Orders Acetaminophen (Tylenol) 325 mg PO BID PRN PRN Reason: HEADACHE/FEVER Aspirin (Halfprin) 162 mg PO DAILY FRANCOIS Carvedilol (Coreg) 6.25 mg PO BIDMEALS FRANCOIS Fluticasone Propionate (Flonase) gm NASBOTH DAILY [facility]IS Furosemide (Lasix) 40 mg PO DAILY [facility]COIS Levothyroxine Sodium (Synthroid) 88 mcg PO DAILY [facility]IS Lorazepam (Ativan) 0.5 - 1 mg PO BID PRN PRN Reason: Anxiety Losartan Potassium (Cozaar) 100 mg PO DAILY [facility]COIS Magnesium Hydroxide (Milk Of Magnesia) ml PO DAILY PRN PRN Reason: Constipation Mirtazapine (Remeron) 30 mg PO BEDTIME [facility]COIS Nicotine (Habitrol) 14 mg TRDERM DAILY [facility] Nitroglycerin (Nitrostat) 0.4 mg SL Q5M PRN PRN Reason: Chest Pain Non-Formulary Medication (Fluticasone/Salmeterol [Advair 500-50]) 1 puff INH BID [facility]ANCOIS Non-Formulary Medication (Omeprazole [Omeprazole]) 20 mg PO DAILY FRANCOIS Non-Formulary Medication (Polyvinyl Alcohol/Povidone/Pf [Refresh Classic Eye Drops]) 1 drop EYEBOTH TID FRANCOIS Sodium Chloride (Saline Flush) 10 ml FLUSH ASDIRECTED PRN PRN Reason: Keep Vein Open Last Admin: 02/02/17 18:10 Dose: 10 ml Spironolactone (Aldactone) 25 mg PO DAILY [facility] Labs: Laboratory Tests 02/02/17 02/02/17 02/02/17 Range/Units 16:55 16:55 16:55 WBC 6.7 (4.5-12.0) X10-3/uL RBC 2.89 L (3.23-5.20) x10(6)uL Hgb 8.5 L (11.5-15.5) g/dL Hct 25.6 L (30.0-51.3) % MCV 88.5 (80-96) fL MCH 29.3 (27.7-33.6) pg MCHC 33.1 (32.2-35.4) g/dL RDW 13.1 (11.5-15.5) % Plt Count 545 H (125-369) X10(3)uL MPV 7.5 (7.4-10.4) fL Neut % (Auto) 76.4 (46-82) % Lymph % (Auto) 9.8 L (13-37) % Atlantic % (Auto) 11.2 (4-12) % Eos % (Auto) 2 (1.0-5.0) % Baso % (Auto) 1 (0-2) % Neut # (Auto) 5.1 (1.6-8.3) # Lymph # (Auto) 0.7 (0.6-5.0) # Atlantic # (Auto) 0.8 (0.0-1.3) # Eos # (Auto) 0.1 (0.0-0.8) # Baso # (Auto) 0.0 (0.0-0.2) # Sodium 130 L (135-145) mmol/L Potassium 4.0 (3.5-5.3) mmol/L Chloride 89 L* (100-110) mmol/L Carbon Dioxide 36 H (23-29) mmol/L BUN 19 (8-23) mg/dL Creatinine 1.3 (0.6-1.3) mg/dL Est Cr Clr Drug Dosing TNP Estimated GFR (MDRD) 40 L (>60) BUN/Creatinine Ratio 14.6 (9-20) Glucose 114 (80-116) mg/dL Calcium 8.2 L (8.6-10.2) mg/dL Total Bilirubin 0.1 (0.1-1.3) mg/dL AST 21 D (5-27) IU/L ALT 13 L D (14-26) IU/L Alkaline Phosphatase 57 (56-112) IU/L Troponin I 0.02 (0.02-0.06) NG/ML NT-Pro-B Natriuret Pep 3297 H (5-450) pg/mL Total Protein 6.4 (6.0-8.0) g/dL Albumin 3.1 L (3.2-4.6) g/dL Globulin 3.3 g/dL Albumin/Globulin Ratio 0.9 Meds: Medications Generic Name Dose Route Start Last Admin Trade Name Freq PRN Reason Stop Dose Admin Acetaminophen 325 mg 02/02/17 19:05 Tylenol PO BID PRN HEADACHE/FEVER Aspirin 162 mg 02/03/17 09:00 Halfprin PO DAILY [facility] Carvedilol 6.25 mg 02/03/17 08:00 Coreg PO BIDMEALS FRANCOIS Fluticasone Propionate gm 02/03/17 09:00 Flonase NASBOTH DAILY [facility] Furosemide 40 mg 02/03/17 09:00 Lasix PO DAILY [facility]IS Levothyroxine Sodium 88 mcg 02/03/17 06:00 Synthroid PO DAILY [facility]IS Lorazepam 0.5 - 1 mg 02/02/17 19:05 Ativan PO BID PRN Anxiety Losartan Potassium 100 mg 02/03/17 09:00 Cozaar PO DAILY [facility] Magnesium Hydroxide ml 02/02/17 19:05 Milk Of Magnesia PO DAILY PRN Constipation Mirtazapine 30 mg 02/02/17 21:00 Remeron PO BEDTIME FRANCOIS Nicotine 14 mg 02/03/17 06:00 Habitrol TRDERM DAILY [facility] Nitroglycerin 0.4 mg 02/02/17 19:05 Nitrostat SL Q5M PRN Chest Pain Non-Formulary Medication 1 puff 02/02/17 21:00 Fluticasone/Salmeterol [Advair 500-50] INH BID FRANCOIS Non-Formulary Medication 20 mg 02/03/17 09:00 Omeprazole [Omeprazole] PO DAILY FRANCOIS Non-Formulary Medication 1 drop 02/02/17 21:00 Polyvinyl Alcohol/Povidone/Pf [Refresh Classic Eye Drops] EYEBOTH TID FRANCOIS Sodium Chloride 10 ml 02/02/17 16:42 02/02/17 18:10 Saline Flush FLUSH 10 ml ASDIRECTED PRN Administration Keep Vein Open Spironolactone 25 mg 02/03/17 09:00 Aldactone PO DAILY FRANCOIS Discontinued Medications Generic Name Dose Route Start Last Admin Trade Name Yong PRN Reason Stop Dose Admin Furosemide 20 mg 02/02/17 17:51 02/02/17 18:10 Lasix IVPUSH 02/02/17 17:52 20 mg ONETIME ONE Administration Spironolactone 25 mg 02/02/17 17:52 02/02/17 18:10 Aldactone PO 02/02/17 17:53 25 mg ONETIME ONE Administration Departure - Departure Time of Disposition: 18:10 Disposition: Refer to Observation Condition: Poor Clinical Impression: Anemia CHF (congestive heart failure), NYHA class III Qualifiers: Congestive heart failure type: diastolic Congestive heart failure chronicity: acute on chronic Qualified Code(s): I50.33 - Acute on chronic diastolic ( congestive) heart failure COPD (chronic obstructive pulmonary disease) Qualifiers: COPD type: unspecified COPD Qualified Code(s): J44.9 - Chronic obstructive pulmonary disease, unspecified - Problem List & Annotations (1) COPD (chronic obstructive pulmonary disease) SNOMED Code(s): 92647615 Code(s): J44.9 - CHRONIC OBSTRUCTIVE PULMONARY DISEASE, UNSPECIFIED Status : Acute Current Visit: Yes Annotation/Comment:: Monitor cardiovascular status and functional status overnight, and disposition tomorrow. Qualifiers: COPD type: unspecified COPD Qualified Code(s): J44.9 - Chronic obstructive pulmonary disease, unspecified (2) CHF (congestive heart failure), NYHA class III SNOMED Code(s): 425530811 Code(s): I50.9 - HEART FAILURE, UNSPECIFIED Status: Chronic Priority: High Current Visit: Yes Annotation/Comment:: Continue home meds. rule out nstemi, diuresis if required. support pulmonary function. set up for echo in house or outpt. dvt proph. follow ekg. Add Aldactone to regime, monitor electrolyte and renal status. Prognosis is poor. Qualifiers: Congestive heart failure type: diastolic Congestive heart failure chronicity: acute on chronic Qualified Code(s): I50.33 - Acute on chronic diastolic (congestive) heart failure (3) Anemia SNOMED Code(s): 457301068 Code(s): D64.9 - ANEMIA, UNSPECIFIED Status: Acute Current Visit: Yes Annotation/Comment:: I will check a SFOB this pm, and hospitalist will address in the am. Qualifiers: Anemia type: unspecified type Qualified Code(s): D64.9 - Anemia, unspecified - Problem List Review Problem List Initiated/Reviewed/Updated: Yes - My Orders Last 24 Hours: My Active Orders 02/02/17 16:42 Sodium Chloride 0.9% [Saline Flush] 10 ml FLUSH ASDIRECTED PRN Saline Lock Insert [OM.PC] Routine 02/02/17 16:47 Chest 1V Frontal [CR] Stat EKG 12 Lead [EK] Routine - Assessment/Plan Last 24 Hours: My Active Orders 02/02/17 16:42 Sodium Chloride 0.9% [Saline Flush] 10 ml FLUSH ASDIRECTED PRN Saline Lock Insert [OM.PC] Routine 02/02/17 16:47 Chest 1V Frontal [CR] Stat EKG 12 Lead [EK] Routine Plan: Follow up with hospitalist in am. She should be evaluated for ECF.
[2017-02-02] MEDS: Sodium Chloride 0.9% 10 ML Syringe FLUSH PRN ×2 (18:10→23:15)
[2017-02-02] MEDS ORDERED: Acetaminophen 325 MG Tab PO PRN (19:05)
[2017-02-02] MEDS ORDERED: Nitroglycerin 0.4 MG Tab.SL *PTOM SL PRN (19:05)
[2017-02-02] MEDS ORDERED: LORazepam 1 MG Tab PO PRN (19:05)
[2017-02-02] MEDS ORDERED: Magnesium Hydroxide 400 MG/5 ML Susp 30 ML Cup PO PRN (19:05)
[2017-02-02] MEDS ORDERED: Levalbuterol HCl 1.25 MG/3 ML Neb NEB PRN (19:47)
[2017-02-02] MEDS ORDERED: POVIDONE EYEBOTH SCH (21:00)
[2017-02-02] MEDS ORDERED: POLYVINYL ALCOHOL EYEBOTH SCH (21:00)
[2017-02-02] MEDS: SALMETEROL INH SCH (21:20)
[2017-02-02] MEDS: FLUTICASONE INH SCH (21:20)
[2017-02-02] MEDS: LEVALBUTEROL HCL 1.25 MG/3 ML NEB PRN (21:20)
[2017-02-02] MEDS: MIRTAZAPINE 30 MG PO SCH (21:21)
[2017-02-02] MEDS ORDERED: LORazepam 0.5 MG Tab ONE (21:41)
[2017-02-02] MEDS: LORazepam 0.5 MG Tab PO PRN (21:44)
[2017-02-03] MEDS: LEVALBUTEROL HCL 1.25 MG/3 ML NEB PRN ×2 (00:53→06:05)
[2017-02-03] MEDS ORDERED: OMEPRAZOLE 20 MG PO SCH (09:00)
[2017-02-03] MEDS: NICOTINE 7 MG/24 HR TRDERM SCH (09:04)
[2017-02-03] MEDS: Levothyroxine 88 MCG Tab *PTOM PO SCH (09:04)
[2017-02-03] MEDS: Carvedilol 6.25 MG Tab *PTOM PO SCH ×2 (09:05→19:23)
[2017-02-03] MEDS: Spironolactone 25 MG Tab PO SCH (09:06)
[2017-02-03] MEDS: Losartan 100 MG Tab *PTOM PO SCH (09:07)
[2017-02-03] MEDS: Aspirin 81 MG Tab.EC *PTOM PO SCH (09:08)
[2017-02-03] MEDS: FLUTICASONE INH SCH ×2 (09:08→20:00)
[2017-02-03] MEDS: SALMETEROL INH SCH ×2 (09:08→20:00)
[2017-02-03] MEDS: Fluticasone Propionate Nasal Spray 16 GM Bottle *PTOM NASBOTH SCH (09:08)
[2017-02-03] MEDS: Carboxymethylcellulose Sodium 0.5% Ophth Soln 15 ML Bottle EYEBOTH SCH ×3 (09:09→21:00)
--- NOTE | 2017-02-03 09:31 | PCM.HP ---
H&P History of Present Illness - General Date of Service: 02/03/17 Admit Problem/Dx: Admission Diagnosis/Problem Admission Diagnosis/Problem Congestive heart failure with preserved LV function, NYHA class 3 Source of Information: Patient, Family, Old Records - History of Present Illness Initial Comments - Free Text/Narative: 81-year-old female who came to the ER last night shortness of breath, bilateral leg swelling,fatigue and general malaise. Known to have COPD, end-stage, CHF, poorly controlled and chronic hyponatremia for which she's been seeing Carmen Cifuentes at the clinic. Over the last few days she's had a pound weight gain, and has become extremely short of breath on any ambulation even at rest. She has no chest pain. Previous attempts to have her go to a [facility] failed because she is adamant that she would like to stay home. She denies fever or chills Upper Back Pain Score (Numeric/FACES): 3 - Related Data Allergies/Adverse Reactions: Allergies Allergy/AdvReac Type Severity Reaction Status Date / Time codeine Allergy Nausea and Verified 02/02/17 17:10 Vomiting zolpidem tartrate Allergy Nausea and Verified 02/02/17 17:10 [From Ambien] Vomiting Home Medications: Home Meds Fluticasone/Salmeterol [Advair 500-50] 1 puff INH BID 07/05/14 [History] Nitroglycerin [Nitrostat] 0.4 mg SL Q5M PRN 07/05/14 [History] Carvedilol [Coreg] 6.25 mg PO BIDMEALS tablet 06/16/15 [Rx] Losartan [Cozaar] 100 mg PO DAILY tablet 06/16/15 [Rx] Furosemide [Lasix] 40 mg PO DAILY 11/29/16 [History] Levothyroxine [Synthroid] 88 mcg PO DAILY 11/29/16 [History] Magnesium Hydroxide [Milk of Magnesia] 1 dose PO DAILY PRN 11/29/16 [History] Mirtazapine [Remeron] 30 mg PO BEDTIME 11/29/16 [History] Nicotine [Nicotine Patch] 14 mg TRDERM DAILY 11/29/16 [History] Potassium Chloride [Klor-Con 10] 10 meq PO DAILY 11/29/16 [History] busPIRone [Buspar] 7.5 mg PO 08,12 11/29/16 [History] busPIRone [Buspar] 15 mg PO BEDTIME 11/29/16 [History] Acetaminophen [Tylenol] 325 mg PO BID PRN 12/01/16 [History] Aspirin [Halfprin] 162 mg PO DAILY 12/01/16 [History] Fluticasone Propionate [Flonase] 2 sprays NASBOTH DAILY 12/01/16 [History] LORazepam 0.5 - 1 mg PO BID PRN 12/01/16 [History] Sodium Chloride 1 tab PO BID 01/07/17 [History] Levalbuterol HCl 1 inh INH Q4H PRN 02/02/17 [History] Omeprazole 20 mg PO DAILY 02/02/17 [History] predniSONE [Prednisone] 2 mg PO DAILY 02/02/17 [History] Carboxymethylcellulose Sodium [Refresh Tears] 1 drop EYEBOTH TID 02/03/17 [ History] Past Medical History HEENT History: Reports: Cataract, Impaired Vision Cardiovascular History: Reports: Angina, CAD, Cardiomyopathy, High Cholesterol, Hypertension, SOB on Exertion, Stents Respiratory History: Reports: Bronchitis, Recurrent, COPD, Pneumonia, Recurrent , SOB Gastrointestinal History: Reports: Chronic Constipation, GERD, Hemorrhoids Genitourinary History: Reports: Chronic Renal Insuffiency, Urinary Incontinence 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: Other OB/BYN History: IV PARA IV Musculoskeletal History: Reports: Arthritis, Back Pain, Chronic Neurological History: Reports: CVA, Migraines Psychiatric History: Reports: Addiction, Anxiety, Depression, Panic Attack Endocrine/Metabolic History: Reports: Hypothyroidism Hematologic History: Reports: Anemia Oncologic (Cancer) History: Reports: Breast Other Oncologic History: L breast CA Dermatologic History: Reports: None - Infectious Disease History Infectious Disease History: Reports: Chicken Pox, Pertussis (Whooping Cough), Scarlet Fever - Past Surgical History Head Surgeries/Procedures: Reports: None HEENT Surgical History: Reports: Cataract Surgery Other HEENT Surgeries/Procedures: bilat cataract surg Cardiovascular Surgical History: Reports: Carotid Endarterectomy, Coronary Artery Stent Other Cardiovascular Surgeries/Procedures: R endarterectomy GI Surgical History: Reports: Colonoscopy Female Surgical History: Reports: Breast Biopsy, Tubal Ligation Endocrine Surgical History: Reports: None Neurological Surgical History: Reports: None Oncologic Surgical History: Reports: Biopsy of Breast Dermatological Surgical History: Reports: None Social & Family History - Family History Family Medical History: Noncontributory Cardiac: Reports: None Respiratory: Reports: None GI: Reports: None : Reports: None OBGYN: Reports: Musculoskeletal: Reports: None Neurological: Reports: None Psychiatric: Reports: None Endocrine/Metabolic: Reports: Hypoparathyroidism Hematologic: Reports: None Immunologic: Reports: None Dermatologic: Reports: None Oncologic: Reports: Esophageal, Ovarian - Tobacco Use Smoking Status *Q: Former Smoker Years of Tobacco use: 60 Packs/Tins Daily: 1 Used Tobacco, but Quit: Yes Month Tobacco Last Used: 2 Second Hand Smoke Exposure: No - Caffeine Use Caffeine Use: Reports: None Other Caffeine Use: power aide - Alcohol Use Days Per Week of Alcohol Use: 0 - Recreational Drug Use Recreational Drug Use: No - Living Situation & Occupation Living situation: Reports: H&P Review of Systems - Review of Systems: Review Of Systems: ROS reveals no pertinent complaints other than HPI. Gastrointestinal: Reports: Other (heart burn/reflux) Exam - Exam Exam: See Below - Vital Signs Vital Signs: Last Vital Signs Temp 97.8 F 02/03/17 00:00 Pulse 75 02/03/17 09:05 Resp 18 02/03/17 00:00 BP 141/50 H 02/03/17 09:07 Pulse Ox 96 02/03/17 00:00 Weight: 56.245 kg - Exam Quality Assessment: Supplemental Oxygen General: Alert, Oriented, Moderate Distress HEENT: PERRLA, Hearing Intact, Mucosa Moist & [place], Nares Patent, Normal Nasal Septum, Posterior Pharynx Clear, Conjunctiva Clear, EOMI, EACs Clear, TMs Clear Neck: Supple, Trachea Midline, 2 Lungs: Decreased Breath Sounds, Crackles, Rhonchi Cardiovascular: Regular Rate, Regular Rhythm GI/Abdominal Exam: Normal Bowel Sounds, Soft, Non-Tender, No Organomegaly, No Distention, No Abnormal Bruit, No Mass, Pelvis Stable (Female) Exam: Deferred Rectal (Female) Exam: Deferred Back Exam: Normal Inspection, Full Range of Motion, NT Extremities: Pedal Edema Skin: Warm, Dry, Intact Neurological: Cranial Nerves Intact, Reflexes Equal Bilateral Neuro Extensive - Mental Status: Alert, Oriented x3, Normal Mood/Affect, Normal Cognition Neuro Extensive - Motor, Sensory, Reflexes: CN II-XII Intact, Normal Gait, Normal Reflexes Psychiatric: Alert, Normal Affect, Normal Mood - Patient Data Lab Results Last 24 hrs: Laboratory Results - last 24 hr 02/02/17 02/02/17 Range/Units 18:07 18:07 Urine Color Yellow (YELLOW) Urine Appearance Clear (CLEAR) Urine pH 5.0 (5.0-6.5) Ur Specific [place] 1.010 (1.010-1.025) Urine Protein Negative (NEGATIVE) mg/dL Urine Glucose (UA) Normal (NEGATIVE) mg/dL Urine Ketones Negative (NEGATIVE) mg/dL Urine Occult Blood Negative (NEGATIVE) Urine Nitrite Negative (NEGATIVE) Urine Bilirubin Negative (NEGATIVE) Urine Urobilinogen Normal (NEGATIVE) mg/dL Ur Leukocyte Esterase Negative (NEGATIVE) Urine RBC 0-5 (0) Urine WBC 0-5 (0) Ur Squamous Epith Cells Few H (NS,R,O) Urine Bacteria Rare H (NS) Ur Random Sodium 72 mmol/L Ur Random Potassium 36.2 mmol/L Result Diagrams: 02/02/17 16:55 02/02/17 16:55 Imaging Impressions Last 24 hrs: X ray non acute *Q Meaningful Use (ADM) - VTE *Q VTE Criteria *Q: - Stroke *Q Stroke Criteria *Q: - AMI *Q AMI Criteria *Q: - Problem List (1) COPD (chronic obstructive pulmonary disease) SNOMED Code(s): 76831669 ICD Code: J44.9 - CHRONIC OBSTRUCTIVE PULMONARY DISEASE, UNSPECIFIED Status : Acute Current Visit: Yes Problem Details: Monitor cardiovascular status and functional status overnight, and disposition tomorrow. Qualifiers: COPD type: unspecified COPD Qualified Code(s): J44.9 - Chronic obstructive pulmonary disease, unspecified (2) Anemia SNOMED Code(s): 494168485 ICD Code: D64.9 - ANEMIA, UNSPECIFIED Status: Acute Current Visit: Yes Problem Details: I will check a SFOB this pm, and hospitalist will address in the am. Qualifiers: Anemia type: unspecified type Qualified Code(s): D64.9 - Anemia, unspecified (3) CHF (congestive heart failure), NYHA class III SNOMED Code(s): 572575292 ICD Code: I50.9 - HEART FAILURE, UNSPECIFIED Status: Acute Priority: High Current Visit: Yes Qualifiers: Congestive heart failure type: diastolic Congestive heart failure chronicity: acute on chronic Qualified Code(s): I50.33 - Acute on chronic diastolic (congestive) heart failure (4) Essential (primary) hypertension SNOMED Code(s): 44711830 ICD Code: I10 - ESSENTIAL (PRIMARY) HYPERTENSION Status: Acute Current Visit: No (5) Hyponatremia SNOMED Code(s): 96963529 ICD Code: E87.1 - HYPO-OSMOLALITY AND HYPONATREMIA Status: Acute Priority : Medium Current Visit: No Onset Date: 05/12/15 Problem Details: Hypervolemic hyponatremia. fluid restrict. sodium restrict. elevate legs. lasix if needed. recheck bmp this evening. strict i/o. (6) GERD (gastroesophageal reflux disease) SNOMED Code(s): 360067019 ICD Code: K21.9 - GASTRO-ESOPHAGEAL REFLUX DISEASE WITHOUT ESOPHAGITIS Status: Acute Current Visit: Yes Qualifiers: Esophagitis presence: esophagitis presence not specified Qualified Code(s) : K21.9 - Gastro-esophageal reflux disease without esophagitis Problem List Initiated/Reviewed/Updated: Yes Orders Last 24hrs: Active Orders 24 hr Category Date Time Status Admission Status [Patient Status] [ADT] Routine ADT 02/02/17 18:58 Active Activity as Tolerated [RC] .Routine Care 02/02/17 19:01 Active Cardiac Monitoring [RC] .As Directed Care 02/02/17 18:58 Active Cardiac Monitoring [RC] 00 Care 02/02/17 18:32 Active Height and Weight [RC] DAILY Care 02/02/17 19:01 Active Oxygen Therapy Adult [Oxygen Therapy] [RC] Care 02/02/17 19:01 Active RT Aerosol Therapy [RC] ASDIRECTED Care 02/02/17 19:48 Active Regular Diet [DIET] Diet 02/03/17 Breakfast Active BASIC METABOLIC PANEL,BMP [CHEM] AM Lab 02/04/17 05:11 Ordered CBC WITH AUTO DIFF [HEME] AM Lab 02/04/17 05:11 Ordered PRO B-TYPE NATRIUR PEPT,BNPPRO [CHEM] DAILY Lab 02/03/17 09:30 Ordered Acetaminophen [Tylenol] Med 02/02/17 19:05 Active 325 mg PO BID PRN Aspirin [Halfprin] Med 02/03/17 09:00 Active 162 mg PO DAILY Carboxymethylcellulose Sodium [Refresh Tears 0.5%] Med 02/03/17 09:00 Active 0 ml EYEBOTH TID Carvedilol [Coreg] Med 02/03/17 08:00 Active 6.25 mg PO BIDMEALS Fluticasone Propionate [Flonase] Med 02/03/17 09:00 Active 0 gm NASBOTH DAILY Fluticasone/Salmeterol [Advair 500-50] Med 02/02/17 21:00 Active 1 puff INH BID Furosemide [Lasix] Med 02/03/17 09:30 Ordered 20 mg IVPUSH DAILY LORazepam [Ativan] Med 02/02/17 21:29 Active 0.5 mg PO BID PRN Levothyroxine [Synthroid] Med 02/03/17 06:00 Active 88 mcg PO DAILY@0600 Losartan [Cozaar] Med 02/03/17 09:00 Active 100 mg PO DAILY Magnesium Hydroxide [Milk of Magnesia] Med 02/02/17 19:05 Ordered DOSE ml PO DAILY PRN Mirtazapine [Remeron] Med 02/02/17 21:00 Active 30 mg PO BEDTIME Nicotine [Habitrol] Med 02/03/17 06:00 Active 14 mg TRDERM DAILY@0600 Nitroglycerin [Nitrostat] Med 02/02/17 19:05 Active 0.4 mg SL Q5M PRN Non-Formulary Medication [NF Drug] Med 02/03/17 09:00 Active 1 each INH Q4H PRN Omeprazole [Omeprazole] Med 02/03/17 09:00 Active 20 mg PO DAILY Spironolactone [Aldactone] Med 02/03/17 09:00 Active 25 mg PO DAILY methylPREDNISolone Sod Succ [Solu-MEDROL] Med 02/03/17 09:30 Ordered 125 mg IVPUSH Q8H Sequential Compression Device [OM.PC] Routine Oth 02/02/17 19:01 Ordered Code Status [Resuscitation Status] Routine Resus Stat 02/02/17 19:05 Ordered Medication Orders Acetaminophen (Tylenol) 325 mg PO BID PRN PRN Reason: HEADACHE/FEVER Artificial Tears (Refresh Tears 0.5%) 0 ml EYEBOTH TID [facility] Last Admin: 02/03/17 09:09 Dose: 1 drop Aspirin (Halfprin) 162 mg PO DAILY [facility] Last Admin: 11/21/17 09:08 Dose: 162 mg Carvedilol (Coreg) 6.25 mg PO BIDMEALS [facility] Last Admin: 02/03/17 09:05 Dose: 6.25 mg Fluticasone Propionate (Flonase) 0 gm NASBOTH DAILY [facility] Last Admin: 02/03/17 09:08 Dose: 2 spray Furosemide (Lasix) 20 mg IVPUSH DAILY [facility] Levothyroxine Sodium (Synthroid) 88 mcg PO DAILY@0600 [facility] Last Admin: 02/03/17 09:04 Dose: 88 mcg Lorazepam (Ativan) 0.5 mg PO BID PRN PRN Reason: Anxiety Last Admin: 02/02/17 21:44 Dose: 0.5 mg Losartan Potassium (Cozaar) 100 mg PO DAILY [facility] Last Admin: 02/03/17 09:07 Dose: 100 mg Magnesium Hydroxide (Milk Of Magnesia) ml PO DAILY PRN PRN Reason: Constipation Methylprednisolone Sodium Succinate (Solu-Medrol) 125 mg IVPUSH Q8H [facility] Mirtazapine (Remeron) 30 mg PO BEDTIME [facility] Last Admin: 02/02/17 21:21 Dose: 30 mg Nicotine (Habitrol) 14 mg TRDERM DAILY@0600 [facility] Last Admin: 02/03/17 09:04 Dose: 14 mg Nitroglycerin (Nitrostat) 0.4 mg SL Q5M PRN PRN Reason: Chest Pain Fluticasone/Salmeterol [Advair 500-50] 1 Puff)Own Med 1 puff INH BID [facility] Last Admin: 02/03/17 09:08 Dose: 1 puff Admin: 02/02/17 21:20 Dose: 1 puff Non-Formulary Medication 1 Each ( Omeprazole [ Omeprazole] 20 Mg) * Ptom 20 mg PO DAILY [facility] Last Admin: 02/03/17 09:07 Dose: 20 mg Non-Formulary Medication 1 Each ( Levalbuterol 0.63mg/3ml) 1 each INH Q4H PRN PRN Reason: SHORTNESS OF BREATH Sodium Chloride (Saline Flush) 10 ml FLUSH ASDIRECTED PRN PRN Reason: Keep Vein Open Last Admin: 02/02/17 23:15 Dose: 10 ml Admin: 02/02/17 18:10 Dose: 10 ml Spironolactone (Aldactone) 25 mg PO DAILY [facility] Last Admin: 02/03/17 09:06 Dose: 25 mg Assessment/Plan Comment:: I will do Solu-Medrol for COPD exacerbation, and Lasix IV to help with diuresis. We'll continue with oxygen supplementation by nasal cannula and DuoNeb treatments when necessary. Resume home meds.When she is back to baseline discharge her home according to her desires. Discontinue telemetry
[2017-02-03] MEDS: LEVALBUTEROL 0.63 MG/3 ML INH PRN ×2 (10:22→14:53)
[2017-02-03] MEDS: methylPREDNISolone Sodium Succinate 125 MG/2 ML SDV IVPUSH SCH ×2 (10:50→19:24)
[2017-02-03] MEDS: Furosemide 20 MG/2 ML VIAL IVPUSH SCH (10:56)
[2017-02-03] MEDS: Sodium Chloride 0.9% 10 ML Syringe FLUSH PRN (10:58)
[2017-02-03] MEDS: BUSPIRONE 15 MG PO SCH ×2 (11:00→14:44)
--- NOTE | 2017-02-03 11:09 | CR ---
INDICATION: Short of breath. CHEST: Portable AP upright view of the chest was obtained with a lordotic position of the patient and allowing for that change, the heart likely is within normal limits in size and shape. The aorta is calcified in the arch area , as previously. A dextroconvex scoliosis of the lower thoracic spine is again noted. Findings are compared with 01/07/2017 and 11/29/2016. Heavy markings in the right upper mid lung field raise question of an area of minimal pneumonia. A nodular density is suggested in the upper middle lung field on the right also and appears to be fairly stable compared with 07/04/2014. This nodule was not present on 11/14/2010 examination or 07/26/2012 examination , although there was some faint infiltration in that area with a similar appearance as today's examination. The likelihood is this finding represents a post granulomatous change, rather than a malignancy. It certainly has not increased in size compared with 07/04/2014. The heavy markings in the lung bases also appear to be similar to the previous examinations and likely are fibrotic in nature. IMPRESSION: 1. Probable ASHD, however, the heart did not appear grossly enlarged, allowing for relatively poor inspiration and AP positioning. 2. Nodular density and heavy markings in the upper middle lung field on the right, present previously and most likely representing post granulomatous change. No significant change is noted, compared with 07/04/2014. 3. Heavy markings at the lung bases, especially on the right suggest the possibility of pulmonary fibrosis. MTDD
[2017-02-03] MEDS ORDERED: Aluminum Hydroxide/Magnesium Hydroxide Susp 30 ML Cup PO PRN (12:24)
[2017-02-03] MEDS: LORazepam 0.5 MG Tab PO PRN (19:51)
[2017-02-03] MEDS: MIRTAZAPINE 30 MG PO SCH (21:00)
[2017-02-03] MEDS ORDERED: BUSPIRONE 15 MG PO SCH (21:00)
[2017-02-04] MEDS: LORazepam 0.5 MG Tab PO PRN (00:18)
[2017-02-04] MEDS: LEVALBUTEROL 0.63 MG/3 ML INH PRN ×3 (00:19→09:24)
[2017-02-04] MEDS: methylPREDNISolone Sodium Succinate 125 MG/2 ML SDV IVPUSH SCH ×2 (02:14→09:33)
[2017-02-04] MEDS: NICOTINE 7 MG/24 HR TRDERM SCH (05:16)
[2017-02-04] MEDS: Levothyroxine 88 MCG Tab *PTOM PO SCH (05:16)
[2017-02-04] MEDS ORDERED: Pantoprazole 40 MG Tab.CR PO SCH (06:00)
[2017-02-04] MEDS: BUSPIRONE 15 MG PO SCH ×2 (07:21→13:20)
[2017-02-04] MEDS: Carvedilol 6.25 MG Tab *PTOM PO SCH (07:22)
--- NOTE | 2017-02-04 08:57 | PCM.PN ---
- General Info Date of Service: 02/04/17 Admission Dx/Problem (Free Text): Admission Diagnosis/Problem Admission Diagnosis/Problem Congestive heart failure with preserved LV function, NYHA class 3 Subjective Update: Mera to [facility] improvement of her symptoms of shortness of breath and leg swelling. She is adamant that she would like to go home today. She denies fever chills or chest pain. - Patient Data Vitals - Most Recent: Last Vital Signs Temp 97.6 F 02/04/17 07:37 Pulse 97 02/04/17 07:37 Resp 20 02/04/17 00:00 BP 184/93 H 02/04/17 07:37 Pulse Ox 99 02/04/17 07:37 Weight - Most Recent: 53.779 kg Lab Results Last 24 Hours: Laboratory Results - last 24 hr 02/03/17 02/04/17 02/04/17 Range/Units 10:05 06:10 06:10 WBC 9.3 (4.5-12.0) X10-3/uL RBC 2.86 L (3.23-5.20) x10(6)uL Hgb 8.8 L (11.5-15.5) g/dL Hct 25.3 L (30.0-51.3) % MCV 88.6 (80-96) fL MCH 30.7 (27.7-33.6) pg MCHC 34.7 (32.2-35.4) g/dL RDW 12.9 (11.5-15.5) % Plt Count 526 H (125-369) X10(3)uL MPV 7.9 (7.4-10.4) fL Add Manual Diff Yes Neutrophils % (Manual) 98 H (46-82) % Band Neutrophils % 1 (0-6) % Lymphocytes % (Manual) 1 L (13-37) % Sodium 126 L (135-145) mmol/L Potassium 3.9 (3.5-5.3) mmol/L Chloride 82 L* D (100-110) mmol/L Carbon Dioxide 34 H (23-29) mmol/L BUN 16 (8-23) mg/dL Creatinine 1.1 (0.6-1.3) mg/dL Est Cr Clr Drug Dosing 32.80 mL/min Estimated GFR (MDRD) 48 L (>60) BUN/Creatinine Ratio 14.5 (9-20) Glucose 144 H (80-116) mg/dL Calcium 8.3 L (8.6-10.2) mg/dL NT-Pro-B Natriuret Pep 2606 H (5-450) pg/mL Med Orders - Current: Current Medications Acetaminophen (Tylenol) 325 mg PO BID PRN PRN Reason: HEADACHE/FEVER Last Admin: 02/04/17 00:17 Dose: 325 mg Al Hydroxide/Mg Hydroxide (Mag-Al Susp) 30 ml PO Q4H PRN PRN Reason: Constipation Artificial Tears (Refresh Tears 0.5%) 0 ml EYEBOTH TID [facility] Last Admin: 02/03/17 21:00 Dose: 1 drop Aspirin (Halfprin) 162 mg PO DAILY [facility] Last Admin: 02/03/17 09:08 Dose: 162 mg Buspirone HCl (Buspar) 7.5 mg PO 0800,1200 [facility] Last Admin: 02/04/17 07:21 Dose: 7.5 mg Buspirone HCl (Buspar) 15 mg PO BEDTIME [facility] Last Admin: 02/03/17 21:00 Dose: 15 mg Carvedilol (Coreg) 6.25 mg PO BIDMEALS [facility] Last Admin: 02/04/17 07:22 Dose: 6.25 mg Fluticasone Propionate (Flonase) 0 gm NASBOTH DAILY [facility] Last Admin: 02/03/17 09:08 Dose: 2 spray Furosemide (Lasix) 20 mg IVPUSH DAILY [facility] Last Admin: 02/03/17 10:56 Dose: 20 mg Levothyroxine Sodium (Synthroid) 88 mcg PO DAILY@0600 [facility] Last Admin: 02/04/17 05:16 Dose: 88 mcg Lorazepam (Ativan) 0.5 mg PO BID PRN PRN Reason: Anxiety Last Admin: 02/04/17 00:18 Dose: 0.5 mg Losartan Potassium (Cozaar) 100 mg PO DAILY [facility] Last Admin: 02/03/17 09:07 Dose: 100 mg Magnesium Hydroxide (Milk Of Magnesia) 30 ml PO DAILY PRN PRN Reason: Constipation Methylprednisolone Sodium Succinate (Solu-Medrol) 125 mg IVPUSH Q8H [facility] Last Admin: 02/04/17 02:14 Dose: 125 mg Mirtazapine (Remeron) 30 mg PO BEDTIME [facility] Last Admin: 02/03/17 21:00 Dose: 30 mg Nicotine (Habitrol) 14 mg TRDERM DAILY@0600 [facility] Last Admin: 02/04/17 05:16 Dose: 14 mg Nitroglycerin (Nitrostat) 0.4 mg SL Q5M PRN PRN Reason: Chest Pain Fluticasone/Salmeterol [Advair 500-50] 1 Puff)Own Med 1 puff INH BID [facility] Last Admin: 02/03/17 20:00 Dose: 1 puff Omeprazole 20 Mg * (Ptom) 0 mg PO DAILY [facility] Levalbuterol 0.63mg/ (3ml Own Med) 1 each INH Q4H PRN PRN Reason: SHORTNESS OF BREATH Last Admin: 02/04/17 05:00 Dose: 1 each Sodium Chloride (Saline Flush) 10 ml FLUSH ASDIRECTED PRN PRN Reason: Keep Vein Open Last Admin: 02/03/17 10:58 Dose: 10 ml Spironolactone (Aldactone) 25 mg PO DAILY [facility] Last Admin: 02/03/17 09:06 Dose: 25 mg Discontinued Medications Furosemide (Lasix) 20 mg IVPUSH ONETIME ONE Stop: 02/02/17 17:52 Last Admin: 02/02/17 18:10 Dose: 20 mg Furosemide (Lasix) 40 mg PO DAILY [facility] Last Admin: 02/03/17 09:09 Dose: 40 mg Furosemide (Lasix) 20 mg IVPUSH NOW ONE Stop: 02/02/17 22:43 Last Admin: 02/02/17 23:15 Dose: 20 mg Levalbuterol HCl (Xopenex) 0.63 mg NEB Q4H PRN PRN Reason: Shortness of Breath Levalbuterol HCl (Xopenex) 0.63 mg NEB Q4H PRN PRN Reason: Shortness of Breath Last Admin: 02/03/17 06:05 Dose: 0.63 mg Lorazepam (Ativan) 0.5 - 1 mg PO BID PRN PRN Reason: Anxiety Lorazepam (Ativan) Confirm Administered Dose 0.5 mg .ROUTE .STK-MED ONE Stop: 02/02/17 21:42 Last Admin: 02/02/17 21:45 Dose: Not Given Non-Formulary Medication 1 Each ( Omeprazole [ Omeprazole] 20 Mg) * Ptom 20 mg PO DAILY [facility] Last Admin: 02/03/17 09:07 Dose: 20 mg Polyvinyl Alcohol/Povidone/Pf [Refresh Classic Eye Drops]* *Own Med 1 drop EYEBOTH TID [facility] Last Admin: 02/02/17 21:21 Dose: 1 drop Non-Formulary Medication 1 Each ( Levalbuterol 0.63mg/3ml) 1 each INH Q4H PRN PRN Reason: SHORTNESS OF BREATH Last Admin: 02/03/17 14:53 Dose: 1 each Spironolactone (Aldactone) 25 mg PO ONETIME ONE Stop: 02/02/17 17:53 Last Admin: 02/02/17 18:10 Dose: 25 mg - Exam Quality Assessment: Supplemental Oxygen General: Mild Distress HEENT: Pupils Equal, Pupils Reactive, EOMI, Mucous Membr. Moist/[place] Neck: Supple Lungs: Crackles, Rhonchi Cardiovascular: Regular Rate Psy/Mental Status: Alert, Labile Mood - Problem List & Annotations (1) COPD (chronic obstructive pulmonary disease) SNOMED Code(s): 55907961 Code(s): J44.9 - CHRONIC OBSTRUCTIVE PULMONARY DISEASE, UNSPECIFIED Status : Acute Current Visit: Yes Qualifiers: COPD type: unspecified COPD Qualified Code(s): J44.9 - Chronic obstructive pulmonary disease, unspecified Annotation/Comment:: Monitor cardiovascular status and functional status overnight, and disposition tomorrow. (2) Anemia SNOMED Code(s): 475493304 Code(s): D64.9 - ANEMIA, UNSPECIFIED Status: Acute Current Visit: Yes Qualifiers: Anemia type: unspecified type Qualified Code(s): D64.9 - Anemia, unspecified Annotation/Comment:: I will check a SFOB this pm, and hospitalist will address in the am. (3) CHF (congestive heart failure), NYHA class III SNOMED Code(s): 743663833 Code(s): I50.9 - HEART FAILURE, UNSPECIFIED Status: Acute Priority: High Current Visit: Yes Qualifiers: Congestive heart failure type: diastolic Congestive heart failure chronicity: acute on chronic Qualified Code(s): I50.33 - Acute on chronic diastolic (congestive) heart failure (4) Essential (primary) hypertension SNOMED Code(s): 82233072 Code(s): I10 - ESSENTIAL (PRIMARY) HYPERTENSION Status: Acute Current Visit: No (5) Hyponatremia SNOMED Code(s): 51480613 Code(s): E87.1 - HYPO-OSMOLALITY AND HYPONATREMIA Status: Acute Priority : Medium Current Visit: No Onset Date: 05/12/15 (6) GERD (gastroesophageal reflux disease) SNOMED Code(s): 919817756 Code(s): K21.9 - GASTRO-ESOPHAGEAL REFLUX DISEASE WITHOUT ESOPHAGITIS Status: Acute Current Visit: Yes Qualifiers: Esophagitis presence: esophagitis presence not specified Qualified Code(s) : K21.9 - Gastro-esophageal reflux disease without esophagitis - Problem List Review Problem List Initiated/Reviewed/Updated: Yes - My Orders Last 24 Hours: My Active Orders 02/03/17 09:30 Furosemide [Lasix] 20 mg IVPUSH DAILY 02/03/17 09:55 Cardiac Monitoring Discontinue [RC] Click to Edit 02/03/17 10:00 busPIRone [Buspar] 7.5 mg PO 0800,1200 methylPREDNISolone Sod Succ [Solu-MEDROL] 125 mg IVPUSH Q8H 02/03/17 12:24 Alum Hydroxide/Mag Hydroxide [Mag-Al Susp] 30 ml PO Q4H PRN 02/03/17 21:00 busPIRone [Buspar] 15 mg PO BEDTIME - Plan Plan:: I I will discharge the patient home today. To resume home diuretics, SVNs supervised by home health.
[2017-02-04] MEDS ORDERED: Omeprazole 20 MG *PTOM PO SCH (09:00)
[2017-02-04] MEDS: Losartan 100 MG Tab *PTOM PO SCH (09:30)
[2017-02-04] MEDS: Spironolactone 25 MG Tab PO SCH (09:30)
[2017-02-04] MEDS: FLUTICASONE INH SCH (09:31)
[2017-02-04] MEDS: Fluticasone Propionate Nasal Spray 16 GM Bottle *PTOM NASBOTH SCH (09:31)
[2017-02-04] MEDS: SALMETEROL INH SCH (09:31)
[2017-02-04] MEDS: Aspirin 81 MG Tab.EC *PTOM PO SCH (09:32)
[2017-02-04] MEDS: Furosemide 20 MG/2 ML VIAL IVPUSH SCH (09:32)
[2017-02-04] MEDS: Carboxymethylcellulose Sodium 0.5% Ophth Soln 15 ML Bottle EYEBOTH SCH (09:33)
[2017-02-04 09:34] VITALS: BP 188/93
[2017-02-04] MEDS: Sodium Chloride 0.9% 10 ML Syringe FLUSH PRN (09:39)
== END 2017-02-04 11:27 | disposition home health service (06) ==
LOC: FB.ED 16:27 → FB.MS 18:03
PROVIDERS: ADMIT Family Medicine; ATTEND Family Medicine
DX: J44.9 Chronic obstructive pulmonary disease, unspecified (principal); E87.1 Hypo-osmolality and hyponatremia; I13.0 Hypertensive heart and chronic kidney disease with heart failure and stage 1 through stage 4 chronic kidney disease, or unspecified chronic kidney disease; N18.9 Chronic kidney disease, unspecified; D63.1 Anemia in chronic kidney disease; K21.9 Gastro-esophageal reflux disease without esophagitis; I25.10 Atherosclerotic heart disease of native coronary artery without angina pectoris; E78.00 Pure hypercholesterolemia, unspecified; F41.9 Anxiety disorder, unspecified; F32.9 Major depressive disorder, single episode, unspecified; E03.9 Hypothyroidism, unspecified; K59.09 Other constipation; Z88.8 Allergy status to other drugs, medicaments and biological substances; Z79.82 Long term (current) use of aspirin; Z79.899 Other long term (current) drug therapy; Z95.5 Presence of coronary angioplasty implant and graft; Z98.51 Tubal ligation status; Z87.891 Personal history of nicotine dependence; Z98.890 Other specified postprocedural states
CPT/HCPCS: 36415; 71010; 80048; 80053; 81001; 83880; 84133; 84300; 84484; 85025; 93005; 94640; 96374; 99285; A9270; J1940; J2930; J7050; 93010; 96375; 96376; 99217; 99220; G0378; J7612

== ENCOUNTER 2017-02-06 16:57 | Inpatient (IN) | payer MEDICARE, BC ==
[2017-02-06] MEDS ORDERED: Albuterol/Ipratropium 3.0-0.5 MG/3 ML Neb Soln NEB ONE (17:04)
--- NOTE | 2017-02-06 17:07 | EDM.PDOC ---
ED HPI GENERAL MEDICAL PROBLEM - General Stated Complaint: SHORT OF BREATH Time Seen by Provider: 02/06/17 16:57 Source of Information: Reports: Patient, Family History Limitations: Reports: Respiratory Distress - History of Present Illness INITIAL COMMENTS - FREE TEXT/NARRATIVE: 81 y.o.w.f with COPD and CHF, DNR/DNI, recently D/C'd from this hospital, came to the ed with worsening of her SOB. Pt lives by herself. She is on 4 liters O2 at home. Pt was a smoker for a long time. Pt is a poor historian due to her SOB. She refused initially Prednison or Solumedrol, later on agreed Solu Medrol to be given. No N/V/D no chest pain. Pt has leg swelling in the past 6 months as per daughter in law. He lasix was recently adjusted. Onset: Gradual Onset Date: 02/03/17 Onset Time: 07:00 Duration: Day(s): Location: Reports: Chest Severity: Moderate Improves with: Reports: Rest Worsens with: Reports: Movement denies Pain Score (Numeric/FACES): 0 - Related Data Allergies Allergy/AdvReac Type Severity Reaction Status Date / Time codeine Allergy Nausea and Verified 02/06/17 17:46 Vomiting zolpidem tartrate Allergy Nausea and Verified 02/06/17 17:46 [From Ambien] Vomiting Home Meds: Home Meds Fluticasone/Salmeterol [Advair 500-50] 1 puff INH BID 07/05/14 [History] Nitroglycerin [Nitrostat] 0.4 mg SL Q5M PRN 07/05/14 [History] Carvedilol [Coreg] 6.25 mg PO BIDMEALS tablet 06/16/15 [Rx] Losartan [Cozaar] 100 mg PO DAILY tablet 06/16/15 [Rx] Furosemide [Lasix] 40 mg PO DAILY 11/29/16 [History] Levothyroxine [Synthroid] 88 mcg PO DAILY 11/29/16 [History] Magnesium Hydroxide [Milk of Magnesia] 1 dose PO DAILY PRN 11/29/16 [History] Mirtazapine [Remeron] 30 mg PO BEDTIME 11/29/16 [History] Nicotine [Nicotine Patch] 14 mg TRDERM DAILY 11/29/16 [History] Potassium Chloride [Klor-Con 10] 10 meq PO DAILY 11/29/16 [History] busPIRone [Buspar] 7.5 mg PO 08,12 11/29/16 [History] busPIRone [Buspar] 15 mg PO BEDTIME 11/29/16 [History] Acetaminophen [Tylenol] 325 mg PO BID PRN 12/01/16 [History] Aspirin [Halfprin] 162 mg PO DAILY 12/01/16 [History] Fluticasone Propionate [Flonase] 2 sprays NASBOTH DAILY 12/01/16 [History] LORazepam 0.5 - 1 mg PO BID PRN 12/01/16 [History] Levalbuterol HCl 1 inh INH Q4H PRN 02/02/17 [History] Omeprazole 20 mg PO DAILY 02/02/17 [History] Carboxymethylcellulose Sodium [Refresh Tears] 1 drop EYEBOTH TID 02/03/17 [ History] Spironolactone [Aldactone] 25 mg PO DAILY #30 tablet 02/04/17 [Rx] Past Medical History HEENT History: Reports: Cataract, Impaired Vision Cardiovascular History: Reports: Angina, CAD, Cardiomyopathy, High Cholesterol, Hypertension, SOB on Exertion, Stents Respiratory History: Reports: Bronchitis, Recurrent, COPD, Pneumonia, Recurrent , SOB Gastrointestinal History: Reports: Chronic Constipation, GERD, Hemorrhoids Genitourinary History: Reports: Chronic Renal Insuffiency, Urinary Incontinence 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: Other OB/BYN History: IV PARA IV Musculoskeletal History: Reports: Arthritis, Back Pain, Chronic Neurological History: Reports: CVA, Migraines Psychiatric History: Reports: Addiction, Anxiety, Depression, Panic Attack Endocrine/Metabolic History: Reports: Hypothyroidism Hematologic History: Reports: Anemia Oncologic (Cancer) History: Reports: Breast Other Oncologic History: L breast CA Dermatologic History: Reports: None - Infectious Disease History Infectious Disease History: Reports: Chicken Pox, Pertussis (Whooping Cough), Scarlet Fever - Past Surgical History Head Surgeries/Procedures: Reports: None HEENT Surgical History: Reports: Cataract Surgery Other HEENT Surgeries/Procedures: bilat cataract surg Cardiovascular Surgical History: Reports: Carotid Endarterectomy, Coronary Artery Stent Other Cardiovascular Surgeries/Procedures: R endarterectomy GI Surgical History: Reports: Colonoscopy Female Surgical History: Reports: Breast Biopsy, Tubal Ligation Endocrine Surgical History: Reports: None Neurological Surgical History: Reports: None Oncologic Surgical History: Reports: Biopsy of Breast Dermatological Surgical History: Reports: None Social & Family History - Family History Family Medical History: Noncontributory Cardiac: Reports: None Respiratory: Reports: None GI: Reports: None : Reports: None OBGYN: Reports: Musculoskeletal: Reports: None Neurological: Reports: None Psychiatric: Reports: None Endocrine/Metabolic: Reports: Hypoparathyroidism Hematologic: Reports: None Immunologic: Reports: None Dermatologic: Reports: None Oncologic: Reports: Esophageal, Ovarian - Tobacco Use Smoking Status *Q: Former Smoker Years of Tobacco use: 60 Packs/Tins Daily: 1 Used Tobacco, but Quit: Yes Month Tobacco Last Used: 2 Second Hand Smoke Exposure: No - Caffeine Use Caffeine Use: Reports: None Other Caffeine Use: power aide - Alcohol Use Days Per Week of Alcohol Use: 0 - Recreational Drug Use Recreational Drug Use: No - Living Situation & Occupation Living situation: Reports: ED ROS GENERAL - Review of Systems Review Of Systems: See Below Constitutional: Reports: No Symptoms HEENT: Reports: No Symptoms Respiratory: Reports: Shortness of Breath Cardiovascular: Reports: No Symptoms Endocrine: Reports: No Symptoms GI/Abdominal: Reports: No Symptoms : Reports: No Symptoms Musculoskeletal: Reports: No Symptoms Skin: Reports: No Symptoms Neurological: Reports: No Symptoms Psychiatric: Reports: No Symptoms Hematologic/Lymphatic: Reports: No Symptoms Immunologic: Reports: No Symptoms ED EXAM, GENERAL - Physical Exam Exam: See Below Exam Limited By: Respiratory Distress General Appearance: Alert, Moderate Distress, Thin Eye Exam: Bilateral Eye: Normal Inspection Ears: Normal External Exam Ear Exam: Bilateral Ear: Auricle Normal Nose: Normal Inspection, Normal Mucosa Throat/Mouth: Normal Inspection (poor dentition) Head: Atraumatic, Normocephalic Neck: Normal Inspection, Supple Respiratory/Chest: Respiratory Distress, Decreased Breath Sounds, Crackles, Rales, Rhonchi Cardiovascular: Normal Peripheral Pulses, Regular Rate, Rhythm, No Edema Peripheral Pulses: 1+: Radial (L), Radial (R) GI/Abdominal: Normal Bowel Sounds (Female) Exam: Deferred Rectal (Female) Exam: Deferred Back Exam: Normal Inspection, Full Range of Motion Extremities: Pedal Edema (chronic for more then 6 months as per daughter) Neurological: Alert, Oriented, CN II-XII Intact Psychiatric: Normal Affect, Normal Mood Skin Exam: Warm, Dry, Intact, Normal Color, No Rash Lymphatic: No Adenopathy EKG INTERPRETATION EKG Date: 02/06/17 Time: 18:55 Rhythm: NSR Rate (Beats/Min): 70 Logan: Normal P-Wave: Present QRS: Normal ST-T: Normal QT: Normal Comparison: NA - No Prior EKG Course - Vital Signs Text/Narrative:: 81 y.o.w.f with COPD and CHF, DNR/DNI, recently D/C'd from this hospital, came to the ed with worsening of her SOB. Pt lives by herself. She is on 4 liters O2 at home. Pt was a smoker for a long time. Pt is a poor historian due to her SOB. She refused initially Prednison or Solumedrol, later on agreed Solu Medrol to be given. No N/V/D no chest pain. Pt has leg swelling in the past 6 months as per daughter in law. He lasix was recently adjusted. PE: Thin, cachectic 81 y.o.w.f in Resp distress, poor air movement. Imaging: CXR: COPD, official report is pending Labs: WBC 9.8 HGB 9.2 HCT 27.4 GFR 53 Na 128 K 4.1 Cl 82 Cr. 1.0 BUN 18 BNP 5300 , INR 0.89 Trop o.02 ECG: NSR rate [address]/T wave changes Impression: COPD exacerbation, Chronic leg edema, elevated BNP, DNR/DNI 5.30 pm Cosultation: Dr. Tate, Hospitalist, accepted the pt for admission Plan: Admit to M/S Last Recorded V/S: Last Vital Signs Temp 36.8 C 02/07/17 04:45 Pulse 76 02/07/17 06:20 Resp 18 02/07/17 04:45 BP 163/68 H 02/07/17 04:45 Pulse Ox 97 02/07/17 06:20 - Orders/Labs/Meds Orders: Active Orders 24 hr Category Date Time Status Chest 1V Frontal [CR] Stat Exams 02/06/17 17:04 Taken Medication Orders Albuterol/Ipratropium (Duoneb 3.0-0.5 Mg/3 Ml) 3 ml NEB Q6H PRN PRN Reason: Shortness of Breath Last Admin: 02/07/17 06:21 Dose: 3 ml Admin: 02/06/17 23:33 Dose: 3 ml Docusate Sodium (Colace) 100 mg PO BID PRN PRN Reason: Constipation Methylprednisolone Sodium Succinate (Solu-Medrol) 125 mg IVPUSH Q8H FRANCOIS Last Admin: 02/07/17 02:19 Dose: 125 mg Admin: 02/06/17 20:06 Dose: Ondansetron HCl (Zofran) 4 mg IV Q4H PRN PRN Reason: Nausea/Vomiting Sodium Chloride (Saline Flush) 10 ml FLUSH ASDIRECTED PRN PRN Reason: Keep Vein Open Last Admin: 02/07/17 02:20 Dose: 10 ml Admin: 02/06/17 17:15 Dose: 10 ml Labs: Laboratory Tests 02/06/17 02/06/17 02/06/17 Range/Units 17:15 17:15 17:15 WBC 9.8 (4.5-12.0) X10-3/uL RBC 3.09 L (3.23-5.20) x10(6)uL Hgb 9.2 L (11.5-15.5) g/dL Hct 27.3 L (30.0-51.3) % MCV 88.5 (80-96) fL MCH 29.9 (27.7-33.6) pg MCHC 33.8 (32.2-35.4) g/dL RDW 13.1 (11.5-15.5) % Plt Count 592 H (125-369) X10(3)uL MPV 7.5 (7.4-10.4) fL Neut % (Auto) 80.6 (46-82) % Lymph % (Auto) 7.1 L (13-37) % Angelina % (Auto) 11.3 (4-12) % Eos % (Auto) 1 (1.0-5.0) % Baso % (Auto) 0 (0-2) % Neut # (Auto) 7.9 (1.6-8.3) # Lymph # (Auto) 0.7 (0.6-5.0) # Angelina # (Auto) 1.1 (0.0-1.3) # Eos # (Auto) 0.1 (0.0-0.8) # Baso # (Auto) 0.0 (0.0-0.2) # PT 9.9 (8.7-11.1) INR 0.98 (0.89-1.13) Sodium 128 L (135-145) mmol/L Potassium 4.1 (3.5-5.3) mmol/L Chloride 82 L* (100-110) mmol/L Carbon Dioxide 39 H (23-29) mmol/L BUN 18 (8-23) mg/dL Creatinine 1.0 (0.6-1.3) mg/dL Est Cr Clr Drug Dosing TNP Estimated GFR (MDRD) 53 L (>60) BUN/Creatinine Ratio 18.0 (9-20) Glucose 98 (80-116) mg/dL Lactic Acid (0.5-2.2) mmol/L Calcium 8.5 L (8.6-10.2) mg/dL Troponin I (0.02-0.06) NG/ML NT-Pro-B Natriuret Pep 5300 H (5-450) pg/mL 02/06/17 02/06/17 Range/Units 17:15 17:15 WBC (4.5-12.0) X10-3/uL RBC (3.23-5.20) x10(6)uL Hgb (11.5-15.5) g/dL Hct (30.0-51.3) % MCV (80-96) fL MCH (27.7-33.6) pg MCHC (32.2-35.4) g/dL RDW (11.5-15.5) % Plt Count (125-369) X10(3)uL MPV (7.4-10.4) fL Neut % (Auto) (46-82) % Lymph % (Auto) (13-37) % Angelina % (Auto) (4-12) % Eos % (Auto) (1.0-5.0) % Baso % (Auto) (0-2) % Neut # (Auto) (1.6-8.3) # Lymph # (Auto) (0.6-5.0) # Angelina # (Auto) (0.0-1.3) # Eos # (Auto) (0.0-0.8) # Baso # (Auto) (0.0-0.2) # PT (8.7-11.1) INR (0.89-1.13) Sodium (135-145) mmol/L Potassium (3.5-5.3) mmol/L Chloride (100-110) mmol/L Carbon Dioxide (23-29) mmol/L BUN (8-23) mg/dL Creatinine (0.6-1.3) mg/dL Est Cr Clr Drug Dosing Estimated GFR (MDRD) (>60) BUN/Creatinine Ratio (9-20) Glucose (80-116) mg/dL Lactic Acid 0.5 (0.5-2.2) mmol/L Calcium (8.6-10.2) mg/dL Troponin I 0.02 (0.02-0.06) NG/ML NT-Pro-B Natriuret Pep (5-450) pg/mL Meds: Medications Generic Name Dose Route Start Last Admin Trade Name Freq PRN Reason Stop Dose Admin Albuterol/Ipratropium 3 ml 02/06/17 21:45 02/07/17 06:21 Duoneb 3.0-0.5 Mg/3 Ml NEB 3 ml Q6H PRN Administration Shortness of Breath Docusate Sodium 100 mg 02/06/17 17:41 Colace PO BID PRN Constipation Methylprednisolone Sodium Succinate 125 mg 02/06/17 18:00 02/07/17 02:19 Solu-Medrol IVPUSH 125 mg Q8H FRANCOIS Administration Ondansetron HCl 4 mg 02/06/17 17:41 Zofran IV Q4H PRN Nausea/Vomiting Sodium Chloride 10 ml 02/06/17 17:41 02/07/17 02:20 Saline Flush FLUSH 10 ml ASDIRECTED PRN Administration Keep Vein Open Discontinued Medications Generic Name Dose Route Start Last Admin Trade Name Freq PRN Reason Stop Dose Admin Albuterol/Ipratropium 3 ml 02/06/17 17:04 02/06/17 17:05 Duoneb 3.0-0.5 Mg/3 Ml NEB 02/06/17 17:05 3 ml ONETIME ONE Administration Albuterol/Ipratropium 3 ml 02/06/17 17:41 Duoneb 3.0-0.5 Mg/3 Ml INH ONETIME PRN Shortness Of Breath/wheezing Buspirone HCl 15 mg 02/06/17 21:30 02/06/17 22:13 Buspar PO 02/06/17 21:31 Not Given ONETIME ONE Buspirone HCl 15 mg 02/06/17 22:00 02/06/17 22:15 Buspar PO 02/06/17 22:01 15 mg ONETIME ONE Administration Carvedilol 6.25 mg 02/06/17 21:30 02/06/17 22:14 Coreg PO 02/06/17 21:31 Not Given ONETIME ONE Carvedilol 6.25 mg 02/06/17 22:00 02/06/17 22:17 Coreg PO 02/06/17 22:01 6.25 mg ONETIME ONE Administration Methylprednisolone Sodium Succinate Confirm 02/06/17 17:13 02/06/17 17:56 Solu-Medrol Administered 02/06/17 17:14 Not Given Dose 125 mg .ROUTE .STK-MED ONE Methylprednisolone Sodium Succinate 125 mg 02/06/17 17:19 02/06/17 17:15 Solu-Medrol IVPUSH 02/06/17 17:20 125 mg ONETIME ONE Administration Mirtazapine 30 mg 02/07/17 21:30 Remeron PO 02/07/17 21:31 ONETIME ONE Mirtazapine 30 mg 02/06/17 22:00 02/06/17 22:19 Remeron PO 02/06/17 22:01 30 mg ONETIME ONE Administration Departure - Departure Time of Disposition: 17:41 Disposition: Refer to Observation Condition: Fair Clinical Impression: COPD with exacerbation - Discharge Information - My Orders Last 24 Hours: My Active Orders 02/06/17 17:04 Chest 1V Frontal [CR] Stat - Assessment/Plan Last 24 Hours: My Active Orders 02/06/17 17:04 Chest 1V Frontal [CR] Stat
[2017-02-06] MEDS ORDERED: methylPREDNISolone Sodium Succinate 125 MG/2 ML SDV ONE (17:13)
[2017-02-06] MEDS: Sodium Chloride 0.9% 10 ML Syringe FLUSH PRN (17:15)
[2017-02-06] MEDS ORDERED: methylPREDNISolone Sodium Succinate 125 MG/2 ML SDV IVPUSH ONE (17:19)
[2017-02-06] MEDS ORDERED: Ondansetron 4 MG/2 ML SDV IV PRN (17:41)
[2017-02-06] MEDS ORDERED: Docusate Sodium 100 MG Cap PO PRN (17:41)
[2017-02-06] MEDS ORDERED: Albuterol/Ipratropium 3.0-0.5 MG/3 ML Neb Soln INH PRN (17:41)
[2017-02-06] MEDS: methylPREDNISolone Sodium Succinate 125 MG/2 ML SDV IVPUSH SCH (20:06)
[2017-02-06] MEDS ORDERED: Carvedilol 6.25 MG Tab PO ONE (21:30)
[2017-02-06] MEDS ORDERED: busPIRone 15 MG Tab PO ONE (21:30)
[2017-02-06] MEDS ORDERED: CARVEDILOL 6.25 MG PO ONE (22:00)
[2017-02-06] MEDS ORDERED: BUSPIRONE 15 MG PO ONE (22:00)
[2017-02-06] MEDS: Albuterol/Ipratropium 3.0-0.5 MG/3 ML Neb Soln NEB PRN (23:33)
[2017-02-07] MEDS: methylPREDNISolone Sodium Succinate 125 MG/2 ML SDV IVPUSH SCH ×3 (02:19→18:17)
[2017-02-07] MEDS: Sodium Chloride 0.9% 10 ML Syringe FLUSH PRN ×7 (02:20→18:30)
[2017-02-07] MEDS: Albuterol/Ipratropium 3.0-0.5 MG/3 ML Neb Soln NEB PRN (06:21)
--- NOTE | 2017-02-07 08:21 | PCM.HP ---
H&P History of Present Illness - General Date of Service: 02/07/17 Admit Problem/Dx: Admission Diagnosis/Problem Admission Diagnosis/Problem COPD with acute lower respiratory infection Source of Information: Patient History Limitations: Reports: No Limitations - History of Present Illness Initial Comments - Free Text/Narative: This is a 81-year-old female patient with a history of COPD and CHF. She was in the hospital for COPD CHF and released about 3 days ago. Yesterday she states she started to get short of breath and mild cough and wheezy. She states she was in the hospital because she was given salt pills and she swelled up. That's improved and she's non-salt pills. She has a history of chronic hyponatremia. She says she is short of breath and cannot really walk to the bathroom. She lives alone at her house in [facility]. She denies fevers, chills, nasal congestion, sore throat. A couple days ago she has some chest pain. She has a history of angina. She took 3 nitroglycerin and that resolved. She has very little cough is nonproductive. denies Pain Score (Numeric/FACES): 0 - Related Data Allergies/Adverse Reactions: Allergies Allergy/AdvReac Type Severity Reaction Status Date / Time codeine Allergy Nausea and Verified 02/06/17 17:46 Vomiting zolpidem tartrate Allergy Nausea and Verified 02/06/17 17:46 [From Bayien] Vomiting Home Medications: Home Meds Fluticasone/Salmeterol [Advair 500-50] 1 puff INH BID 07/05/14 [History] Nitroglycerin [Nitrostat] 0.4 mg SL Q5M PRN 07/05/14 [History] Carvedilol [Coreg] 6.25 mg PO BIDMEALS tablet 06/16/15 [Rx] Losartan [Cozaar] 100 mg PO DAILY tablet 06/16/15 [Rx] Furosemide [Lasix] 40 mg PO DAILY 11/29/16 [History] Levothyroxine [Synthroid] 88 mcg PO DAILY 11/29/16 [History] Magnesium Hydroxide [Milk of Magnesia] 1 dose PO DAILY PRN 11/29/16 [History] Mirtazapine [Remeron] 30 mg PO BEDTIME 11/29/16 [History] Nicotine [Nicotine Patch] 14 mg TRDERM DAILY 11/29/16 [History] Potassium Chloride [Klor-Con 10] 10 meq PO DAILY 11/29/16 [History] busPIRone [Buspar] 7.5 mg PO 08,12 11/29/16 [History] busPIRone [Buspar] 15 mg PO BEDTIME 11/29/16 [History] Acetaminophen [Tylenol] 325 mg PO BID PRN 12/01/16 [History] Aspirin [Halfprin] 162 mg PO DAILY 12/01/16 [History] Fluticasone Propionate [Flonase] 2 sprays NASBOTH DAILY 12/01/16 [History] LORazepam 0.5 - 1 mg PO BID PRN 12/01/16 [History] Levalbuterol HCl 1 inh INH Q4H PRN 02/02/17 [History] Omeprazole 20 mg PO DAILY 02/02/17 [History] Carboxymethylcellulose Sodium [Refresh Tears] 1 drop EYEBOTH TID 02/03/17 [ History] Spironolactone [Aldactone] 25 mg PO DAILY #30 tablet 02/04/17 [Rx] Past Medical History HEENT History: Reports: Cataract, Impaired Vision Cardiovascular History: Reports: Angina, CAD, Cardiomyopathy, High Cholesterol, Hypertension, SOB on Exertion, Stents Respiratory History: Reports: Bronchitis, Recurrent, COPD, Pneumonia, Recurrent , SOB Gastrointestinal History: Reports: Chronic Constipation, GERD, Hemorrhoids Genitourinary History: Reports: Chronic Renal Insuffiency, Urinary Incontinence 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: Other OB/BYN History: IV PARA IV Musculoskeletal History: Reports: Arthritis, Back Pain, Chronic Neurological History: Reports: CVA, Migraines Psychiatric History: Reports: Addiction, Anxiety, Depression, Panic Attack Endocrine/Metabolic History: Reports: Hypothyroidism Hematologic History: Reports: Anemia Oncologic (Cancer) History: Reports: Breast Other Oncologic History: L breast CA Dermatologic History: Reports: None - Infectious Disease History Infectious Disease History: Reports: Chicken Pox, Pertussis (Whooping Cough), Scarlet Fever - Past Surgical History Head Surgeries/Procedures: Reports: None HEENT Surgical History: Reports: Cataract Surgery Other HEENT Surgeries/Procedures: bilat cataract surg Cardiovascular Surgical History: Reports: Carotid Endarterectomy, Coronary Artery Stent Other Cardiovascular Surgeries/Procedures: R endarterectomy GI Surgical History: Reports: Colonoscopy Female Surgical History: Reports: Breast Biopsy, Tubal Ligation Endocrine Surgical History: Reports: None Neurological Surgical History: Reports: None Oncologic Surgical History: Reports: Biopsy of Breast Dermatological Surgical History: Reports: None Social & Family History - Family History Family Medical History: Noncontributory Cardiac: Reports: None Respiratory: Reports: None GI: Reports: None : Reports: None OBGYN: Reports: Musculoskeletal: Reports: None Neurological: Reports: None Psychiatric: Reports: None Endocrine/Metabolic: Reports: Hypoparathyroidism Hematologic: Reports: None Immunologic: Reports: None Dermatologic: Reports: None Oncologic: Reports: Esophageal, Ovarian - Tobacco Use Smoking Status *Q: Former Smoker Years of Tobacco use: 60 Packs/Tins Daily: 1 Used Tobacco, but Quit: Yes Month Tobacco Last Used: 2 Tobacco Use Comment: as per family , pt still smoker. pt verbalized she quit smoking. Second Hand Smoke Exposure: No - Caffeine Use Caffeine Use: Reports: None Other Caffeine Use: power aide - Alcohol Use Days Per Week of Alcohol Use: 0 - Recreational Drug Use Recreational Drug Use: No - Living Situation & Occupation Living situation: Reports: H&P Review of Systems - Review of Systems: Review Of Systems: See Below General: Reports: Weakness, Fatigue HEENT: Reports: No Symptoms Pulmonary: Reports: Shortness of Breath, Wheezing, Cough (Very minimal). Denies : Sputum Cardiovascular: Reports: No Symptoms Gastrointestinal: Reports: No Symptoms Genitourinary: Reports: No Symptoms Musculoskeletal: Reports: No Symptoms Skin: Reports: No Symptoms Psychiatric: Reports: No Symptoms Neurological: Reports: No Symptoms Hematologic/Lymphatic: Reports: Easy Bruising Immunologic: Reports: No Symptoms Exam - Exam Exam: See Below - Vital Signs Vital Signs: Last Vital Signs Temp 98.2 F 02/07/17 04:45 Pulse 76 02/07/17 06:20 Resp 18 02/07/17 04:45 BP 163/68 H 02/07/17 04:45 Pulse Ox 97 02/07/17 06:20 Weight: 122 lb 9.6 oz - Exam Quality Assessment: Supplemental Oxygen General: Alert, Oriented, Cooperative HEENT: Hearing Intact, Mucosa Moist & [place], Posterior Pharynx Clear, TMs Clear Neck: Supple, Trachea Midline. No: JVD Lungs: Normal Respiratory Effort, Decreased Breath Sounds. No: Crackles, Rales , Wheezing Cardiovascular: Regular Rate, Regular Rhythm. No: Systolic Murmur, Diastolic Murmur GI/Abdominal Exam: Normal Bowel Sounds, Soft, Non-Tender, No Distention Back Exam: Normal Inspection, Full Range of Motion Extremities: Normal Inspection, Non-Tender, No Pedal Edema Skin: Warm, Dry, Intact Neurological: Normal Speech, Normal Tone Neuro Extensive - Mental Status: Alert, Oriented x3, Normal Cognition Psychiatric: Alert - Patient Data Result Diagrams: 02/06/17 17:15 02/06/17 17:15 *Q Meaningful Use (ADM) - VTE *Q VTE Criteria *Q: - Stroke *Q Stroke Criteria *Q: - AMI *Q AMI Criteria *Q: - Problem List (1) COPD exacerbation SNOMED Code(s): 659221845434078 ICD Code: J44.1 - CHRONIC OBSTRUCTIVE PULMONARY DISEASE W (ACUTE) EXACERBATION Status: Acute Priority: High Current Visit: Yes Onset Date : 10/11/14 Problem Details: Admit. solumedrol. levofloxacin IV renal dosing. duonebs. IS. supplemental oxygen to keep sats greater than 92%. cxr. (2) Hyponatremia SNOMED Code(s): 53975403 ICD Code: E87.1 - HYPO-OSMOLALITY AND HYPONATREMIA Status: Acute Current Visit: No (3) Palliative care patient SNOMED Code(s): 228691117 ICD Code: Z51.5 - ENCOUNTER FOR PALLIATIVE CARE Status: Acute Current Visit: No Problem List Initiated/Reviewed/Updated: Yes Orders Last 24hrs: Active Orders 24 hr Category Date Time Status Oxygen Therapy Adult [Oxygen Therapy, ED] [RC] Care 02/06/17 17:00 Active ASDIRECTED RT Aerosol Therapy [RC] ASDIRECTED Care 02/06/17 21:50 Active Albuterol/Ipratropium [DuoNeb 3.0-0.5 MG/3 ML] Med 02/06/17 21:45 Active 3 ml NEB Q6H PRN methylPREDNISolone Sod Succ [Solu-MEDROL] Med 02/06/17 18:00 Active 125 mg IVPUSH Q8H EKG 12 Lead [EK] Routine Ther 02/06/17 17:49 Ordered Medication Orders Albuterol/Ipratropium (Duoneb 3.0-0.5 Mg/3 Ml) 3 ml NEB Q6H PRN PRN Reason: Shortness of Breath Last Admin: 02/07/17 06:21 Dose: 3 ml Admin: 02/06/17 23:33 Dose: 3 ml Docusate Sodium (Colace) 100 mg PO BID PRN PRN Reason: Constipation Methylprednisolone Sodium Succinate (Solu-Medrol) 125 mg IVPUSH Q8H FRANCOIS Last Admin: 02/07/17 02:19 Dose: 125 mg Admin: 02/06/17 20:06 Dose: Ondansetron HCl (Zofran) 4 mg IV Q4H PRN PRN Reason: Nausea/Vomiting Sodium Chloride (Saline Flush) 10 ml FLUSH ASDIRECTED PRN PRN Reason: Keep Vein Open Last Admin: 02/07/17 02:20 Dose: 10 ml Admin: 02/06/17 17:15 Dose: 10 ml Assessment/Plan Comment:: 1. Admit for observation change to inpatient. 2. Solu-Medrol. 3. Continue home medications. 4. Discussed CODE STATUS. She is a DNR. 5. O2 to keep sats between 88-92%. 6. Ambulate when necessary and up in the chair. 7. Regular diet. 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 Patient states she wants to go home. She may be a swing bed cavity for strengthening
[2017-02-07] MEDS ORDERED: Magnesium Hydroxide 400 MG/5 ML Susp 30 ML Cup PO PRN (08:22)
[2017-02-07] MEDS ORDERED: Nitroglycerin 0.4 MG Tab.SL SL PRN (08:22)
[2017-02-07] MEDS ORDERED: Levalbuterol HCl 1.25 MG/3 ML Neb INH PRN (09:00)
[2017-02-07] MEDS: Aspirin 81 MG Tab.EC PO SCH (09:45)
[2017-02-07] MEDS: Spironolactone 25 MG Tab PO SCH (09:46)
[2017-02-07] MEDS: Carvedilol 6.25 MG Tab PO SCH ×2 (09:46→18:16)
[2017-02-07] MEDS: Losartan 100 MG Tab PO SCH (09:46)
[2017-02-07] MEDS: busPIRone 15 MG Tab PO SCH ×3 (09:46→21:05)
[2017-02-07] MEDS: Fluticasone Propionate Nasal Spray 16 GM Bottle NASBOTH SCH (09:47)
[2017-02-07] MEDS: Nicotine 14 MG/24 Hr Patch TRDERM SCH (09:47)
[2017-02-07] MEDS: Potassium Chloride 10 MEQ Tab.ER PO SCH (09:50)
[2017-02-07] MEDS: Carboxymethylcellulose Sodium 0.5% Ophth Soln 15 ML Bottle EYEBOTH SCH ×3 (09:51→21:04)
[2017-02-07] MEDS: Pantoprazole 40 MG Tab.CR PO SCH (09:51)
[2017-02-07] MEDS: Furosemide 40 MG Tab PO SCH (09:51)
[2017-02-07] MEDS: Formoterol/Mometasone 200-5 MCG 8.8 GM Inhaler IH SCH ×2 (09:52→21:05)
[2017-02-07] MEDS: Levothyroxine 88 MCG Tab PO SCH (09:52)
[2017-02-07] MEDS: LORazepam 0.5 MG Tab PO PRN (12:15)
[2017-02-07] MEDS: Albuterol/Ipratropium 3.0-0.5 MG/3 ML Neb Soln INH SCH ×2 (17:04→21:04)
[2017-02-07] MEDS: Magnesium Hydroxide 400 MG/5 ML Susp 30 ML Cup PO SCH (21:04)
[2017-02-07] MEDS: Mirtazapine 30 MG Tab PO SCH (21:05)
[2017-02-07] MEDS ORDERED: Mirtazapine 30 MG Tab PO ONE (21:30)
[2017-02-08] MEDS: Albuterol/Ipratropium 3.0-0.5 MG/3 ML Neb Soln INH SCH ×6 (01:33→21:32)
[2017-02-08] MEDS: Sodium Chloride 0.9% 10 ML Syringe FLUSH PRN ×3 (01:55→21:43)
[2017-02-08] MEDS: LORazepam 0.5 MG Tab PO PRN ×2 (01:55→12:43)
[2017-02-08] MEDS: methylPREDNISolone Sodium Succinate 125 MG/2 ML SDV IVPUSH SCH ×3 (01:55→21:42)
[2017-02-08] MEDS: Carvedilol 6.25 MG Tab PO SCH ×2 (07:40→17:21)
[2017-02-08] MEDS: busPIRone 15 MG Tab PO SCH ×3 (07:40→21:39)
[2017-02-08] MEDS: Formoterol/Mometasone 200-5 MCG 8.8 GM Inhaler IH SCH ×4 (09:12→21:38)
[2017-02-08] MEDS: Fluticasone Propionate Nasal Spray 16 GM Bottle NASBOTH SCH (09:12)
[2017-02-08] MEDS: Spironolactone 25 MG Tab PO SCH (09:12)
[2017-02-08] MEDS: Losartan 100 MG Tab PO SCH (09:12)
[2017-02-08] MEDS: Aspirin 81 MG Tab.EC PO SCH (09:13)
[2017-02-08] MEDS: Nicotine 14 MG/24 Hr Patch TRDERM SCH (09:13)
[2017-02-08] MEDS: Potassium Chloride 10 MEQ Tab.ER PO SCH (09:14)
[2017-02-08] MEDS: Pantoprazole 40 MG Tab.CR PO SCH (09:15)
[2017-02-08] MEDS: Carboxymethylcellulose Sodium 0.5% Ophth Soln 15 ML Bottle EYEBOTH SCH ×3 (09:15→21:40)
[2017-02-08] MEDS: Furosemide 40 MG Tab PO SCH (09:15)
[2017-02-08] MEDS: Levothyroxine 88 MCG Tab PO SCH (09:15)
--- NOTE | 2017-02-08 09:52 | PCM.PN ---
- General Info Date of Service: 02/08/17 Admission Dx/Problem (Free Text): Patient states that her wheezing is a little bit better and her leg swelling is better. She says she wheezes a lot when she walks but not sitting. No chest pain. - Patient Data Vitals - Most Recent: Last Vital Signs Temp 97.1 F 02/08/17 05:15 Pulse 80 02/08/17 07:40 Resp 24 H 02/08/17 05:15 BP 142/90 H 02/08/17 09:12 Pulse Ox 99 02/08/17 05:15 Weight - Most Recent: 118 lb Lab Results Last 24 Hours: Laboratory Results - last 24 hr 02/08/17 02/08/17 Range/Units 06:45 06:45 WBC 19.7 H (4.5-12.0) X10-3/uL RBC 3.03 L (3.23-5.20) x10(6)uL Hgb 9.3 L (11.5-15.5) g/dL Hct 27.0 L (30.0-51.3) % MCV 89.0 (80-96) fL MCH 30.7 (27.7-33.6) pg MCHC 34.5 (32.2-35.4) g/dL RDW 12.8 (11.5-15.5) % Plt Count 592 H (125-369) X10(3)uL MPV 7.9 (7.4-10.4) fL Add Manual Diff Yes Neutrophils % (Manual) 96 H (46-82) % Lymphocytes % (Manual) 1 L (13-37) % Monocytes % (Manual) 3 L (4-12) % Toxic Granulation Moderate H (NOT SEEN) Sodium 127 L (135-145) mmol/L Potassium 4.2 (3.5-5.3) mmol/L Chloride 82 L* (100-110) mmol/L Carbon Dioxide 37 H (23-29) mmol/L BUN 23 (8-23) mg/dL Creatinine 1.2 (0.6-1.3) mg/dL Est Cr Clr Drug Dosing 30.07 mL/min Estimated GFR (MDRD) 43 L (>60) BUN/Creatinine Ratio 19.2 (9-20) Glucose 164 H (80-116) mg/dL Calcium 8.4 L (8.6-10.2) mg/dL Total Bilirubin 0.2 (0.1-1.3) mg/dL AST 20 (5-27) IU/L ALT 13 L (14-26) IU/L Alkaline Phosphatase 56 (56-112) IU/L NT-Pro-B Natriuret Pep 5432 H (5-450) pg/mL Total Protein 7.0 (6.0-8.0) g/dL Albumin 3.2 (3.2-4.6) g/dL Globulin 3.8 g/dL Albumin/Globulin Ratio 0.8 Med Orders - Current: Current Medications Acetaminophen (Tylenol) 325 mg PO BID PRN PRN Reason: HEADACHE/FEVER Albuterol/Ipratropium (Duoneb 3.0-0.5 Mg/3 Ml) 3 ml INH Q4H [facility] Last Admin: 02/08/17 08:57 Dose: 3 ml Artificial Tears (Refresh Tears 0.5%) 0 ml EYEBOTH TID [facility] Last Admin: 02/08/17 09:15 Dose: 1 drop Aspirin (Halfprin) 162 mg PO DAILY [facility] Last Admin: 02/08/17 09:13 Dose: 162 mg Buspirone HCl (Buspar) 7.5 mg PO 08,12 [facility] Last Admin: 02/08/17 07:40 Dose: 7.5 mg Buspirone HCl (Buspar) 15 mg PO BEDTIME [facility] Last Admin: 02/07/17 21:05 Dose: 15 mg Carvedilol (Coreg) 6.25 mg PO BIDMEALS [facility] Last Admin: 02/08/17 07:40 Dose: 6.25 mg Docusate Sodium (Colace) 100 mg PO BID PRN PRN Reason: Constipation Fluticasone Propionate (Flonase) 0 gm NASBOTH DAILY [facility] Last Admin: 02/08/17 09:12 Dose: 2 spray Furosemide (Lasix) 40 mg PO DAILY [facility] Last Admin: 02/08/17 09:15 Dose: 40 mg Levalbuterol HCl (Xopenex) 0.63 mg INH Q4H PRN PRN Reason: SHORTNESS OF BREATH Last Admin: 02/07/17 12:01 Dose: 0.63 mg Levothyroxine Sodium (Synthroid) 88 mcg PO DAILY [facility] Last Admin: 02/08/17 09:15 Dose: 88 mcg Lorazepam (Ativan) 0.5 mg PO BID PRN PRN Reason: ANXIETY Last Admin: 02/08/17 01:55 Dose: 0.5 mg Losartan Potassium (Cozaar) 100 mg PO DAILY [facility] Last Admin: 02/08/17 09:12 Dose: 100 mg Magnesium Hydroxide (Milk Of Magnesia) 30 ml PO DAILY PRN PRN Reason: Constipation Magnesium Hydroxide (Milk Of Magnesia) 30 ml PO BEDTIME [facility] Last Admin: 02/07/17 21:04 Dose: 30 ml Methylprednisolone Sodium Succinate (Solu-Medrol) 125 mg IVPUSH Q8H [facility] Last Admin: 02/08/17 01:55 Dose: 125 mg Mirtazapine (Remeron) 30 mg PO BEDTIME [facility] Last Admin: 02/07/17 21:05 Dose: 30 mg Mometasone Furoate/Formoterol Fumar (Dulera 200-5 Mcg) 2 puff IH BID [facility] Last Admin: 02/08/17 09:19 Dose: Not Given Nicotine (Habitrol) 14 mg TRDERM Q24H [facility] Last Admin: 02/08/17 09:13 Dose: 14 mg Nitroglycerin (Nitrostat) 0.4 mg SL Q5M PRN PRN Reason: Chest Pain Ondansetron HCl (Zofran) 4 mg IV Q4H PRN PRN Reason: Nausea/Vomiting Last Admin: 02/07/17 11:11 Dose: 4 mg Pantoprazole Sodium (Protonix) 40 mg PO DAILY [facility] Last Admin: 02/08/17 09:15 Dose: 40 mg Potassium Chloride (Klor-Con 10) 10 meq PO DAILY [facility] Last Admin: 02/08/17 09:14 Dose: 10 meq Sodium Chloride (Saline Flush) 10 ml FLUSH ASDIRECTED PRN PRN Reason: Keep Vein Open Last Admin: 02/08/17 01:55 Dose: 10 ml Spironolactone (Aldactone) 25 mg PO DAILY [facility] Last Admin: 02/08/17 09:12 Dose: 25 mg Discontinued Medications Albuterol/Ipratropium (Duoneb 3.0-0.5 Mg/3 Ml) 3 ml NEB ONETIME ONE Stop: 02/06/17 17:05 Last Admin: 02/06/17 17:05 Dose: 3 ml Albuterol/Ipratropium (Duoneb 3.0-0.5 Mg/3 Ml) 3 ml INH ONETIME PRN PRN Reason: Shortness Of Breath/wheezing Albuterol/Ipratropium (Duoneb 3.0-0.5 Mg/3 Ml) 3 ml NEB Q6H PRN PRN Reason: Shortness of Breath Last Admin: 02/07/17 06:21 Dose: 3 ml Buspirone HCl (Buspar) 15 mg PO ONETIME ONE Stop: 02/06/17 21:31 Last Admin: 02/06/17 22:13 Dose: Not Given Buspirone HCl (Buspar) 15 mg PO ONETIME ONE Stop: 02/06/17 22:01 Last Admin: 02/06/17 22:15 Dose: 15 mg Carvedilol (Coreg) 6.25 mg PO ONETIME ONE Stop: 02/06/17 21:31 Last Admin: 02/06/17 22:14 Dose: Not Given Carvedilol (Coreg) 6.25 mg PO ONETIME ONE Stop: 02/06/17 22:01 Last Admin: 02/06/17 22:17 Dose: 6.25 mg Methylprednisolone Sodium Succinate (Solu-Medrol) Confirm Administered Dose 125 mg .ROUTE .STK-MED ONE Stop: 02/06/17 17:14 Last Admin: 02/06/17 17:56 Dose: Not Given Methylprednisolone Sodium Succinate (Solu-Medrol) 125 mg IVPUSH ONETIME ONE Stop: 02/06/17 17:20 Last Admin: 02/06/17 17:15 Dose: 125 mg Mirtazapine (Remeron) 30 mg PO ONETIME ONE Stop: 02/07/17 21:31 Mirtazapine (Remeron) 30 mg PO ONETIME ONE Stop: 02/06/17 22:01 Last Admin: 02/06/17 22:19 Dose: 30 mg - Exam Quality Assessment: Supplemental Oxygen General: Alert, Oriented, Cooperative Lungs: Normal Respiratory Effort, Decreased Breath Sounds, Rub. No: Crackles, Rales, Rhonchi Cardiovascular: Regular Rate, Regular Rhythm, No Murmurs Extremities: Pedal Edema - Problem List & Annotations (1) COPD exacerbation SNOMED Code(s): 169219997291494 Code(s): J44.1 - CHRONIC OBSTRUCTIVE PULMONARY DISEASE W (ACUTE) EXACERBATION Status: Acute Priority: High Current Visit: Yes Onset Date : 10/11/14 Annotation/Comment:: Admit. solumedrol. levofloxacin IV renal dosing. duonebs. IS. supplemental oxygen to keep sats greater than 92%. cxr. (2) Hyponatremia SNOMED Code(s): 31882120 Code(s): E87.1 - HYPO-OSMOLALITY AND HYPONATREMIA Status: Acute Current Visit: No (3) Palliative care patient SNOMED Code(s): 426938727 Code(s): Z51.5 - ENCOUNTER FOR PALLIATIVE CARE Status: Acute Current Visit: No - Problem List Review Problem List Initiated/Reviewed/Updated: Yes - My Orders Last 24 Hours: My Active Orders 02/07/17 17:00 Albuterol/Ipratropium [DuoNeb 3.0-0.5 MG/3 ML] 3 ml INH Q4H 02/07/17 21:00 Magnesium Hydroxide [Milk of Magnesia] 30 ml PO BEDTIME 02/08/17 10:00 methylPREDNISolone Sod Succ [Solu-MEDROL] 125 mg IVPUSH Q12H - Plan Plan:: 1. Change Solu-Medrol IV every 12 hours today. 2. Her son and daughter in the room. I spent over 30 minutes discussing long- term care and her living situation. She is interested in going to a [facility] in [place].
[2017-02-08] MEDS: Acetaminophen 325 MG Tab PO PRN (15:40)
[2017-02-08] MEDS: Mirtazapine 30 MG Tab PO SCH (21:41)
[2017-02-08] MEDS: Magnesium Hydroxide 400 MG/5 ML Susp 30 ML Cup PO SCH (21:48)
[2017-02-09] MEDS: Albuterol/Ipratropium 3.0-0.5 MG/3 ML Neb Soln INH SCH ×7 (01:35→21:21)
[2017-02-09] MEDS: LORazepam 0.5 MG Tab PO PRN ×2 (01:51→13:24)
[2017-02-09] MEDS: busPIRone 15 MG Tab PO SCH ×3 (08:51→21:35)
[2017-02-09] MEDS: Carvedilol 6.25 MG Tab PO SCH ×2 (08:51→17:42)
[2017-02-09] MEDS: Spironolactone 25 MG Tab PO SCH (08:52)
[2017-02-09] MEDS: Losartan 100 MG Tab PO SCH (08:53)
[2017-02-09] MEDS: Formoterol/Mometasone 200-5 MCG 8.8 GM Inhaler IH SCH ×2 (08:53→21:35)
[2017-02-09] MEDS: Fluticasone Propionate Nasal Spray 16 GM Bottle NASBOTH SCH (08:54)
[2017-02-09] MEDS: Nicotine 14 MG/24 Hr Patch TRDERM SCH (08:55)
[2017-02-09] MEDS: Aspirin 81 MG Tab.EC PO SCH (08:55)
[2017-02-09] MEDS: Carboxymethylcellulose Sodium 0.5% Ophth Soln 15 ML Bottle EYEBOTH SCH ×3 (08:56→21:35)
[2017-02-09] MEDS: Furosemide 40 MG Tab PO SCH (08:56)
[2017-02-09] MEDS: Pantoprazole 40 MG Tab.CR PO SCH (08:56)
[2017-02-09] MEDS: Potassium Chloride 10 MEQ Tab.ER PO SCH (08:56)
[2017-02-09] MEDS: Levothyroxine 88 MCG Tab PO SCH (08:56)
--- NOTE | 2017-02-09 09:05 | PCM.PN ---
- General Info Date of Service: 02/09/17 Admission Dx/Problem (Free Text): Patient states her wheezing is better today. It was worse last night. She just got up so she doesn't know how she feels. No coughing, fevers, chills. She said she did not sleep last night because she had lots of bad dreams. - Patient Data Vitals - Most Recent: Last Vital Signs Temp 98.2 F 02/09/17 05:35 Pulse 80 02/09/17 05:35 Resp 16 02/09/17 05:35 BP 190/89 H 02/09/17 05:35 Pulse Ox 100 02/09/17 05:35 Weight - Most Recent: 120 lb 3.2 oz Med Orders - Current: Current Medications Acetaminophen (Tylenol) 325 mg PO BID PRN PRN Reason: HEADACHE/FEVER Last Admin: 02/08/17 15:40 Dose: 325 mg Albuterol/Ipratropium (Duoneb 3.0-0.5 Mg/3 Ml) 3 ml INH Q4H [facility] Last Admin: 02/09/17 08:54 Dose: 3 ml Artificial Tears (Refresh Tears 0.5%) 0 ml EYEBOTH TID [facility] Last Admin: 02/09/17 08:56 Dose: 1 drop Aspirin (Halfprin) 162 mg PO DAILY [facility] Last Admin: 02/09/17 08:55 Dose: 162 mg Buspirone HCl (Buspar) 7.5 mg PO 08,12 [facility] Last Admin: 02/09/17 08:51 Dose: 7.5 mg Buspirone HCl (Buspar) 15 mg PO BEDTIME [facility] Last Admin: 02/08/17 21:39 Dose: 15 mg Carvedilol (Coreg) 6.25 mg PO BIDMEALS [facility] Last Admin: 02/09/17 08:51 Dose: 6.25 mg Docusate Sodium (Colace) 100 mg PO BID PRN PRN Reason: Constipation Fluticasone Propionate (Flonase) 0 gm NASBOTH DAILY [facility] Last Admin: 02/09/17 08:54 Dose: 2 spray Furosemide (Lasix) 40 mg PO DAILY [facility] Last Admin: 02/09/17 08:56 Dose: 40 mg Levalbuterol HCl (Xopenex) 0.63 mg INH Q4H PRN PRN Reason: SHORTNESS OF BREATH Last Admin: 02/07/17 12:01 Dose: 0.63 mg Levothyroxine Sodium (Synthroid) 88 mcg PO DAILY [facility] Last Admin: 02/09/17 08:56 Dose: 88 mcg Lorazepam (Ativan) 0.5 mg PO BID PRN PRN Reason: ANXIETY Last Admin: 02/09/17 01:51 Dose: 0.5 mg Losartan Potassium (Cozaar) 100 mg PO DAILY [facility] Last Admin: 02/09/17 08:53 Dose: 100 mg Magnesium Hydroxide (Milk Of Magnesia) 30 ml PO DAILY PRN PRN Reason: Constipation Magnesium Hydroxide (Milk Of Magnesia) 30 ml PO BEDTIME [facility] Last Admin: 02/08/17 21:48 Dose: 30 ml Methylprednisolone Sodium Succinate (Solu-Medrol) 125 mg IVPUSH Q12H [facility] Last Admin: 02/08/17 21:42 Dose: 125 mg Mirtazapine (Remeron) 30 mg PO BEDTIME [facility] Last Admin: 02/08/17 21:41 Dose: 30 mg Mometasone Furoate/Formoterol Fumar (Dulera 200-5 Mcg) 2 puff IH BID [facility] Last Admin: 02/09/17 08:53 Dose: 2 puff Nicotine (Habitrol) 14 mg TRDERM Q24H [facility] Last Admin: 02/09/17 08:55 Dose: 14 mg Nitroglycerin (Nitrostat) 0.4 mg SL Q5M PRN PRN Reason: Chest Pain Ondansetron HCl (Zofran) 4 mg IV Q4H PRN PRN Reason: Nausea/Vomiting Last Admin: 02/07/17 11:11 Dose: 4 mg Pantoprazole Sodium (Protonix) 40 mg PO DAILY [facility] Last Admin: 02/09/17 08:56 Dose: 40 mg Potassium Chloride (Klor-Con 10) 10 meq PO DAILY [facility] Last Admin: 02/09/17 08:56 Dose: 10 meq Sodium Chloride (Saline Flush) 10 ml FLUSH ASDIRECTED PRN PRN Reason: Keep Vein Open Last Admin: 02/08/17 21:43 Dose: 10 ml Spironolactone (Aldactone) 25 mg PO DAILY [facility] Last Admin: 02/09/17 08:52 Dose: 25 mg Discontinued Medications Albuterol/Ipratropium (Duoneb 3.0-0.5 Mg/3 Ml) 3 ml NEB ONETIME ONE Stop: 02/06/17 17:05 Last Admin: 02/06/17 17:05 Dose: 3 ml Albuterol/Ipratropium (Duoneb 3.0-0.5 Mg/3 Ml) 3 ml INH ONETIME PRN PRN Reason: Shortness Of Breath/wheezing Albuterol/Ipratropium (Duoneb 3.0-0.5 Mg/3 Ml) 3 ml NEB Q6H PRN PRN Reason: Shortness of Breath Last Admin: 02/07/17 06:21 Dose: 3 ml Buspirone HCl (Buspar) 15 mg PO ONETIME ONE Stop: 02/06/17 21:31 Last Admin: 02/06/17 22:13 Dose: Not Given Buspirone HCl (Buspar) 15 mg PO ONETIME ONE Stop: 02/06/17 22:01 Last Admin: 02/06/17 22:15 Dose: 15 mg Carvedilol (Coreg) 6.25 mg PO ONETIME ONE Stop: 02/06/17 21:31 Last Admin: 02/06/17 22:14 Dose: Not Given Carvedilol (Coreg) 6.25 mg PO ONETIME ONE Stop: 02/06/17 22:01 Last Admin: 02/06/17 22:17 Dose: 6.25 mg Methylprednisolone Sodium Succinate (Solu-Medrol) Confirm Administered Dose 125 mg .ROUTE .STK-MED ONE Stop: 02/06/17 17:14 Last Admin: 02/06/17 17:56 Dose: Not Given Methylprednisolone Sodium Succinate (Solu-Medrol) 125 mg IVPUSH ONETIME ONE Stop: 02/06/17 17:20 Last Admin: 02/06/17 17:15 Dose: 125 mg Methylprednisolone Sodium Succinate (Solu-Medrol) 125 mg IVPUSH Q8H [facility] Last Admin: 02/08/17 01:55 Dose: 125 mg Mirtazapine (Remeron) 30 mg PO ONETIME ONE Stop: 02/07/17 21:31 Mirtazapine (Remeron) 30 mg PO ONETIME ONE Stop: 02/06/17 22:01 Last Admin: 02/06/17 22:19 Dose: 30 mg - Exam General: Alert, Oriented Lungs: Normal Respiratory Effort, Decreased Breath Sounds. No: Crackles, Rales , Rhonchi, Rub Cardiovascular: Regular Rate, Regular Rhythm, No Murmurs Extremities: Pedal Edema - Problem List & Annotations (1) COPD exacerbation SNOMED Code(s): 468165979798721 Code(s): J44.1 - CHRONIC OBSTRUCTIVE PULMONARY DISEASE W (ACUTE) EXACERBATION Status: Acute Priority: High Current Visit: Yes Onset Date : 10/11/14 Annotation/Comment:: Admit. solumedrol. levofloxacin IV renal dosing. duonebs. IS. supplemental oxygen to keep sats greater than 92%. cxr. (2) Hyponatremia SNOMED Code(s): 23870354 Code(s): E87.1 - HYPO-OSMOLALITY AND HYPONATREMIA Status: Acute Current Visit: No (3) Palliative care patient SNOMED Code(s): 948357399 Code(s): Z51.5 - ENCOUNTER FOR PALLIATIVE CARE Status: Acute Current Visit: No - Problem List Review Problem List Initiated/Reviewed/Updated: Yes - My Orders Last 24 Hours: My Active Orders 02/08/17 10:00 methylPREDNISolone Sod Succ [Solu-MEDROL] 125 mg IVPUSH Q12H - Plan Plan:: 1. Change Solu-Medrol IV daily 2. PT/OT evaluation today.
[2017-02-09] MEDS: methylPREDNISolone Sodium Succinate 125 MG/2 ML SDV IVPUSH SCH (10:56)
[2017-02-09] MEDS: Sodium Chloride 0.9% 10 ML Syringe FLUSH PRN (11:00)
--- NOTE | 2017-02-09 13:20 | CR ---
INDICATION: Shortness of breath. COMPARISON: 02/02/2017. CHEST, AP PORTABLE: Again, somewhat lordotic positioning. The heart is normal. Some calcifications in the thoracic aortic arch. Hyperinflation consistent with COPD. Scoliotic curvature thoracic spine to the right. There does not appear to be any infiltrates, effusions, or masses. Nodular density again seen in the upper lung on the right. The left upper lung is hyperinflated when compared to the right, likely due to emphysematous changes. There are some scattered fibrotic changes over the lungs, more prominent in the right lung base and left upper lung, but no focal consolidative process. IMPRESSION: 1. COPD. 2. Stable nodular density. 3. Interstitial changes within the lungs, felt to be stable. No definitive focal consolidative process identified. 4. No failure. MTDD
[2017-02-09] MEDS: Spironolactone 50 MG Tab PO SCH (15:07)
[2017-02-09] MEDS: Magnesium Hydroxide 400 MG/5 ML Susp 30 ML Cup PO SCH (21:35)
[2017-02-09] MEDS: Mirtazapine 30 MG Tab PO SCH (21:35)
[2017-02-10] MEDS: Albuterol/Ipratropium 3.0-0.5 MG/3 ML Neb Soln INH SCH ×6 (00:59→21:13)
[2017-02-10] MEDS: Acetaminophen 325 MG Tab PO PRN ×2 (01:19→05:32)
[2017-02-10] MEDS: LORazepam 0.5 MG Tab PO PRN (01:20)
--- NOTE | 2017-02-10 08:44 | PCM.PN ---
- General Info Date of Service: 02/10/17 Admission Dx/Problem (Free Text): Patient states she has a cough last night. Her breathing is better. She denies wheezing, chest pain or leg swelling. She is very anxious about her move to [place]. She believes that's why her blood pressures elevated at this time. - Patient Data Vitals - Most Recent: Last Vital Signs Temp 98.5 F 02/10/17 05:00 Pulse 88 02/10/17 05:00 Resp 18 02/10/17 05:00 BP 183/84 H 02/10/17 05:00 Pulse Ox 99 02/10/17 05:00 Weight - Most Recent: 119 lb 12.8 oz Med Orders - Current: Current Medications Acetaminophen (Tylenol) 325 mg PO BID PRN PRN Reason: HEADACHE/FEVER Last Admin: 02/10/17 05:32 Dose: 325 mg Albuterol/Ipratropium (Duoneb 3.0-0.5 Mg/3 Ml) [address] [facility] Last Admin: 02/10/17 05:12 Dose: 3 ml Artificial Tears (Refresh Tears 0.5%) [address] [facility] Last Admin: 02/09/17 21:35 Dose: 1 drop Aspirin (Halfprin) [address] [facility] Last Admin: 02/09/17 08:55 Dose: 162 mg Buspirone HCl (Buspar) 7.5 mg PO 08,12 [facility] Last Admin: 02/09/17 13:20 Dose: 7.5 mg Buspirone HCl (Buspar) [address] [facility] Last Admin: 02/09/17 21:35 Dose: 15 mg Carvedilol (Coreg) 6.[address] [facility] Last Admin: 02/09/17 17:42 Dose: 6.25 mg Docusate Sodium (Colace) 100 mg PO BID PRN PRN Reason: Constipation Fluticasone Propionate (Flonase) [address] [facility] Last Admin: 02/09/17 08:54 Dose: 2 spray Furosemide (Lasix) [address] [facility] Last Admin: 02/09/17 08:56 Dose: 40 mg Levalbuterol HCl (Xopenex) 0.63 mg INH Q4H PRN PRN Reason: SHORTNESS OF BREATH Last Admin: 02/07/17 12:01 Dose: 0.63 mg Levothyroxine Sodium (Synthroid) [address] [facility] Last Admin: 02/09/17 08:56 Dose: 88 mcg Lorazepam (Ativan) 0.[address] [facility] Losartan Potassium (Cozaar) [address] [facility] Last Admin: 02/09/17 08:53 Dose: 100 mg Magnesium Hydroxide (Milk Of Magnesia) 30 ml PO DAILY PRN PRN Reason: Constipation Magnesium Hydroxide (Milk Of Magnesia) [address] [facility] Last Admin: 02/09/17 21:35 Dose: 30 ml Mirtazapine (Remeron) [address] [facility] Last Admin: 02/09/17 21:35 Dose: 30 mg Mometasone Furoate/Formoterol Fumar (Dulera 200-5 Mcg) [address] [facility] Last Admin: 02/09/17 21:35 Dose: 2 puff Nicotine (Habitrol) [address] [facility] Last Admin: 02/09/17 08:55 Dose: 14 mg Nitroglycerin (Nitrostat) 0.4 mg SL Q5M PRN PRN Reason: Chest Pain Ondansetron HCl (Zofran) 4 mg IV Q4H PRN PRN Reason: Nausea/Vomiting Last Admin: 02/07/17 11:11 Dose: 4 mg Pantoprazole Sodium (Protonix) [address] [facility] Last Admin: 02/09/17 08:56 Dose: 40 mg Potassium Chloride (Klor-Con 10) [address] [facility] Last Admin: 02/09/17 08:56 Dose: 10 meq Prednisone (Prednisone) [address] [facility] Sodium Chloride (Saline Flush) 10 ml FLUSH ASDIRECTED PRN PRN Reason: Keep Vein Open Last Admin: 02/09/17 11:00 Dose: 10 ml Spironolactone (Aldactone) [address] [facility] Last Admin: 02/09/17 15:07 Dose: 50 mg Discontinued Medications Albuterol/Ipratropium (Duoneb 3.0-0.5 Mg/3 Ml) 3 ml NEB ONETIME ONE Stop: 02/06/17 17:05 Last Admin: 02/06/17 17:05 Dose: 3 ml Albuterol/Ipratropium (Duoneb 3.0-0.5 Mg/3 Ml) 3 ml INH ONETIME PRN PRN Reason: Shortness Of Breath/wheezing Albuterol/Ipratropium (Duoneb 3.0-0.5 Mg/3 Ml) 3 ml NEB Q6H PRN PRN Reason: Shortness of Breath Last Admin: 02/07/17 06:21 Dose: 3 ml Buspirone HCl (Buspar) 15 mg PO ONETIME ONE Stop: 02/06/17 21:31 Last Admin: 02/06/17 22:13 Dose: Not Given Buspirone HCl (Buspar) 15 mg PO ONETIME ONE Stop: 02/06/17 22:01 Last Admin: 02/06/17 22:15 Dose: 15 mg Carvedilol (Coreg) 6.25 mg PO ONETIME ONE Stop: 02/06/17 21:31 Last Admin: 02/06/17 22:14 Dose: Not Given Carvedilol (Coreg) 6.25 mg PO ONETIME ONE Stop: 02/06/17 22:01 Last Admin: 02/06/17 22:17 Dose: 6.25 mg Lorazepam (Ativan) 0.5 mg PO BID PRN PRN Reason: ANXIETY Last Admin: 02/10/17 01:20 Dose: 0.5 mg Methylprednisolone Sodium Succinate (Solu-Medrol) Confirm Administered Dose 125 mg .ROUTE .STK-MED ONE Stop: 02/06/17 17:14 Last Admin: 02/06/17 17:56 Dose: Not Given Methylprednisolone Sodium Succinate (Solu-Medrol) 125 mg IVPUSH ONETIME ONE Stop: 02/06/17 17:20 Last Admin: 02/06/17 17:15 Dose: 125 mg Methylprednisolone Sodium Succinate (Solu-Medrol) [address] [facility] Last Admin: 02/08/17 01:55 Dose: 125 mg Methylprednisolone Sodium Succinate (Solu-Medrol) [address] [facility] Last Admin: 02/09/17 10:56 Dose: 125 mg Methylprednisolone Sodium Succinate (Solu-Medrol) [address] [facility] Mirtazapine (Remeron) 30 mg PO ONETIME ONE Stop: 02/07/17 21:31 Mirtazapine (Remeron) 30 mg PO ONETIME ONE Stop: 02/06/17 22:01 Last Admin: 02/06/17 22:19 Dose: 30 mg Spironolactone (Aldactone) 25 mg PO DAILY [facility] Last Admin: 02/09/17 08:52 Dose: 25 mg - Exam General: Alert, Oriented, Cooperative Lungs: Normal Respiratory Effort, Decreased Breath Sounds. No: Crackles, Rales , Rhonchi Cardiovascular: Regular Rate, Regular Rhythm, No Murmurs Extremities: No Pedal Edema Skin: Warm, Dry, Intact Psy/Mental Status: Alert, Normal Affect, Normal Mood - Problem List & Annotations (1) COPD exacerbation SNOMED Code(s): 907528764887966 Code(s): J44.1 - CHRONIC OBSTRUCTIVE PULMONARY DISEASE W (ACUTE) EXACERBATION Status: Acute Priority: High Current Visit: Yes Onset Date : 10/11/14 Annotation/Comment:: Admit. solumedrol. levofloxacin IV renal dosing. duonebs. IS. supplemental oxygen to keep sats greater than 92%. cxr. (2) Hyponatremia SNOMED Code(s): 62963213 Code(s): E87.1 - HYPO-OSMOLALITY AND HYPONATREMIA Status: Acute Current Visit: No (3) Palliative care patient SNOMED Code(s): 486317516 Code(s): Z51.5 - ENCOUNTER FOR PALLIATIVE CARE Status: Acute Current Visit: No (4) Elevated blood pressure reading SNOMED Code(s): 62694778 Code(s): R03.0 - ELEVATED BLOOD-PRESSURE READING, W/O DIAGNOSIS OF HTN Status: Acute Current Visit: Yes (5) Anxiety SNOMED Code(s): 75546406 Code(s): F41.9 - ANXIETY DISORDER, UNSPECIFIED Status: Chronic Current Visit: No - Problem List Review Problem List Initiated/Reviewed/Updated: Yes - My Orders Last 24 Hours: My Active Orders 02/09/17 15:00 Spironolactone [Aldactone] 50 mg PO BIDDIURETIC 02/10/17 09:00 Benzonatate [Tessalon Perles] 100 mg PO TID LORazepam [Ativan] 0.5 mg PO TID predniSONE 60 mg PO DAILY - Plan Plan:: 1. DC Solu-Medrol 2. Patient states she gets anxious from prednisone. She is agreeable to do prednisone with Ativan 3 times a day. So I made her Ativan 0.5 mg 3 times a day with prednisone 60 mg a day. 3. Tessalon Perles 100 mg 3 times a day for cough. 4. Continue to observe blood pressure assuming that anxiety is causing this issue. 5. Social workers are working on transferring her to [facility] in [place] in the next few days hopefully.
[2017-02-10] MEDS ORDERED: methylPREDNISolone Sodium Succinate 125 MG/2 ML SDV IVPUSH SCH (09:00)
[2017-02-10] MEDS: Benzonatate 100 MG Cap PO SCH ×3 (09:19→21:14)
[2017-02-10] MEDS: predniSONE 20 MG Tab PO SCH (09:23)
[2017-02-10] MEDS: busPIRone 15 MG Tab PO SCH ×3 (09:24→21:12)
[2017-02-10] MEDS: Carvedilol 6.25 MG Tab PO SCH ×2 (09:24→18:35)
[2017-02-10] MEDS: Spironolactone 50 MG Tab PO SCH ×2 (09:24→13:57)
[2017-02-10] MEDS: Aspirin 81 MG Tab.EC PO SCH (09:25)
[2017-02-10] MEDS: Nicotine 14 MG/24 Hr Patch TRDERM SCH (09:25)
[2017-02-10] MEDS: Formoterol/Mometasone 200-5 MCG 8.8 GM Inhaler IH SCH ×2 (09:26→21:13)
[2017-02-10] MEDS: Losartan 100 MG Tab PO SCH (09:27)
[2017-02-10] MEDS: Fluticasone Propionate Nasal Spray 16 GM Bottle NASBOTH SCH (09:27)
[2017-02-10] MEDS: Potassium Chloride 10 MEQ Tab.ER PO SCH (09:27)
[2017-02-10] MEDS: Furosemide 40 MG Tab PO SCH (09:27)
[2017-02-10] MEDS: Pantoprazole 40 MG Tab.CR PO SCH (09:28)
[2017-02-10] MEDS: Carboxymethylcellulose Sodium 0.5% Ophth Soln 15 ML Bottle EYEBOTH SCH ×3 (09:28→21:13)
[2017-02-10] MEDS: Levothyroxine 88 MCG Tab PO SCH (09:28)
[2017-02-10] MEDS: LORazepam 0.5 MG Tab PO SCH ×3 (10:53→21:12)
[2017-02-10] MEDS: Magnesium Hydroxide 400 MG/5 ML Susp 30 ML Cup PO SCH (21:13)
[2017-02-10] MEDS: Mirtazapine 30 MG Tab PO SCH (21:14)
[2017-02-11] MEDS: Albuterol/Ipratropium 3.0-0.5 MG/3 ML Neb Soln INH SCH ×4 (00:55→13:53)
[2017-02-11] MEDS: LORazepam 0.5 MG Tab PO SCH ×4 (00:55→13:59)
[2017-02-11] MEDS: Losartan 100 MG Tab PO SCH (08:15)
[2017-02-11] MEDS: busPIRone 15 MG Tab PO SCH ×2 (08:15→13:53)
[2017-02-11] MEDS: Spironolactone 50 MG Tab PO SCH ×2 (08:15→14:07)
[2017-02-11] MEDS: Carvedilol 6.25 MG Tab PO SCH (08:16)
[2017-02-11] MEDS: Fluticasone Propionate Nasal Spray 16 GM Bottle NASBOTH SCH (08:16)
[2017-02-11] MEDS: Formoterol/Mometasone 200-5 MCG 8.8 GM Inhaler IH SCH (08:16)
[2017-02-11] MEDS: Potassium Chloride 10 MEQ Tab.ER PO SCH (08:17)
[2017-02-11] MEDS: Aspirin 81 MG Tab.EC PO SCH (08:17)
[2017-02-11] MEDS: Carboxymethylcellulose Sodium 0.5% Ophth Soln 15 ML Bottle EYEBOTH SCH ×2 (08:17→14:07)
[2017-02-11] MEDS: Nicotine 14 MG/24 Hr Patch TRDERM SCH (08:17)
[2017-02-11] MEDS: Pantoprazole 40 MG Tab.CR PO SCH (08:17)
[2017-02-11] MEDS: predniSONE 20 MG Tab PO SCH (08:17)
[2017-02-11] MEDS: Furosemide 40 MG Tab PO SCH (08:17)
[2017-02-11 08:18] VITALS: BP 184/75
[2017-02-11] MEDS: Levothyroxine 88 MCG Tab PO SCH (08:18)
[2017-02-11] MEDS: Benzonatate 100 MG Cap PO SCH ×2 (08:18→14:07)
--- NOTE | 2017-02-11 08:58 | PCM.PN ---
- General Info Date of Service: 02/11/17 Admission Dx/Problem (Free Text): Patient states she's having some coughing today and wheezing. No fevers, chills or chest pain. - Patient Data Vitals - Most Recent: Last Vital Signs Temp 97.7 F 02/11/17 07:25 Pulse 66 02/11/17 08:16 Resp 24 H 02/11/17 07:25 BP 184/75 H 02/11/17 08:16 Pulse Ox 100 02/11/17 07:25 Weight - Most Recent: 120 lb Med Orders - Current: Current Medications Acetaminophen (Tylenol) 325 mg PO BID PRN PRN Reason: HEADACHE/FEVER Last Admin: 02/10/17 05:32 Dose: 325 mg Albuterol/Ipratropium (Duoneb 3.0-0.5 Mg/3 Ml) 3 ml INH Q4H [facility] Last Admin: 02/11/17 08:16 Dose: 3 ml Artificial Tears (Refresh Tears 0.5%) 0 ml EYEBOTH TID [facility] Last Admin: 02/11/17 08:17 Dose: 1 drop Aspirin (Halfprin) 162 mg PO DAILY [facility] Last Admin: 02/11/17 08:17 Dose: 162 mg Benzonatate (Tessalon Perles) 100 mg PO TID [facility] Last Admin: 02/11/17 08:18 Dose: 100 mg Buspirone HCl (Buspar) 7.5 mg PO 08,12 [facility] Last Admin: 02/11/17 08:15 Dose: 7.5 mg Buspirone HCl (Buspar) 15 mg PO BEDTIME [facility] Last Admin: 02/10/17 21:12 Dose: 15 mg Carvedilol (Coreg) 6.25 mg PO BIDMEALS [facility] Last Admin: 02/11/17 08:16 Dose: 6.25 mg Docusate Sodium (Colace) 100 mg PO BID PRN PRN Reason: Constipation Fluticasone Propionate (Flonase) 0 gm NASBOTH DAILY [facility] Last Admin: 02/11/17 08:16 Dose: 1 spray Furosemide (Lasix) 40 mg PO DAILY [facility] Last Admin: 02/11/17 08:17 Dose: Not Given Levalbuterol HCl (Xopenex) 0.63 mg INH Q4H PRN PRN Reason: SHORTNESS OF BREATH Last Admin: 02/07/17 12:01 Dose: 0.63 mg Levothyroxine Sodium (Synthroid) 88 mcg PO DAILY [facility] Last Admin: 02/11/17 08:18 Dose: 88 mcg Lorazepam (Ativan) 0.5 mg PO TID [facility] Last Admin: 02/11/17 00:55 Dose: 0.5 mg Losartan Potassium (Cozaar) 100 mg PO DAILY [facility] Last Admin: 02/11/17 08:15 Dose: 100 mg Magnesium Hydroxide (Milk Of Magnesia) 30 ml PO DAILY PRN PRN Reason: Constipation Magnesium Hydroxide (Milk Of Magnesia) 30 ml PO BEDTIME [facility] Last Admin: 02/10/17 21:13 Dose: 30 ml Mirtazapine (Remeron) 30 mg PO BEDTIME [facility] Last Admin: 02/10/17 21:14 Dose: 30 mg Mometasone Furoate/Formoterol Fumar (Dulera 200-5 Mcg) 2 puff IH BID [facility] Last Admin: 02/11/17 08:16 Dose: 2 puff Nicotine (Habitrol) 14 mg TRDERM Q24H [facility] Last Admin: 02/11/17 08:17 Dose: 14 mg Nitroglycerin (Nitrostat) 0.4 mg SL Q5M PRN PRN Reason: Chest Pain Ondansetron HCl (Zofran) 4 mg IV Q4H PRN PRN Reason: Nausea/Vomiting Last Admin: 02/07/17 11:11 Dose: 4 mg Pantoprazole Sodium (Protonix) 40 mg PO DAILY [facility] Last Admin: 02/11/17 08:17 Dose: 40 mg Potassium Chloride (Klor-Con 10) 10 meq PO DAILY [facility] Last Admin: 02/11/17 08:17 Dose: 10 meq Prednisone (Prednisone) 60 mg PO DAILY [facility] Last Admin: 02/11/17 08:17 Dose: 60 mg Sodium Chloride (Saline Flush) 10 ml FLUSH ASDIRECTED PRN PRN Reason: Keep Vein Open Last Admin: 02/09/17 11:00 Dose: 10 ml Spironolactone (Aldactone) 50 mg PO BIDDIURETIC [facility] Last Admin: 02/11/17 08:15 Dose: Not Given Discontinued Medications Albuterol/Ipratropium (Duoneb 3.0-0.5 Mg/3 Ml) 3 ml NEB ONETIME ONE Stop: 02/06/17 17:05 Last Admin: 02/06/17 17:05 Dose: 3 ml Albuterol/Ipratropium (Duoneb 3.0-0.5 Mg/3 Ml) 3 ml INH ONETIME PRN PRN Reason: Shortness Of Breath/wheezing Albuterol/Ipratropium (Duoneb 3.0-0.5 Mg/3 Ml) 3 ml NEB Q6H PRN PRN Reason: Shortness of Breath Last Admin: 02/07/17 06:21 Dose: 3 ml Buspirone HCl (Buspar) 15 mg PO ONETIME ONE Stop: 02/06/17 21:31 Last Admin: 02/06/17 22:13 Dose: Not Given Buspirone HCl (Buspar) 15 mg PO ONETIME ONE Stop: 02/06/17 22:01 Last Admin: 02/06/17 22:15 Dose: 15 mg Carvedilol (Coreg) 6.25 mg PO ONETIME ONE Stop: 02/06/17 21:31 Last Admin: 02/06/17 22:14 Dose: Not Given Carvedilol (Coreg) 6.25 mg PO ONETIME ONE Stop: 02/06/17 22:01 Last Admin: 02/06/17 22:17 Dose: 6.25 mg Lorazepam (Ativan) 0.5 mg PO BID PRN PRN Reason: ANXIETY Last Admin: 02/10/17 01:20 Dose: 0.5 mg Methylprednisolone Sodium Succinate (Solu-Medrol) Confirm Administered Dose 125 mg .ROUTE .STK-MED ONE Stop: 02/06/17 17:14 Last Admin: 02/06/17 17:56 Dose: Not Given Methylprednisolone Sodium Succinate (Solu-Medrol) 125 mg IVPUSH ONETIME ONE Stop: 02/06/17 17:20 Last Admin: 02/06/17 17:15 Dose: 125 mg Methylprednisolone Sodium Succinate (Solu-Medrol) 125 mg IVPUSH Q8H [facility] Last Admin: 02/08/17 01:55 Dose: 125 mg Methylprednisolone Sodium Succinate (Solu-Medrol) 125 mg IVPUSH Q12H [facility] Last Admin: 02/09/17 10:56 Dose: 125 mg Methylprednisolone Sodium Succinate (Solu-Medrol) 125 mg IVPUSH DAILY [facility] Mirtazapine (Remeron) 30 mg PO ONETIME ONE Stop: 02/07/17 21:31 Mirtazapine (Remeron) 30 mg PO ONETIME ONE Stop: 02/06/17 22:01 Last Admin: 02/06/17 22:19 Dose: 30 mg Spironolactone (Aldactone) 25 mg PO DAILY [facility] Last Admin: 02/09/17 08:52 Dose: 25 mg - Exam General: Alert, Oriented, Cooperative Lungs: Normal Respiratory Effort, Decreased Breath Sounds. No: Crackles, Rales , Rhonchi Cardiovascular: Regular Rate, Regular Rhythm, No Murmurs Extremities: Pedal Edema - Problem List & Annotations (1) COPD exacerbation SNOMED Code(s): 157483392653201 Code(s): J44.1 - CHRONIC OBSTRUCTIVE PULMONARY DISEASE W (ACUTE) EXACERBATION Status: Acute Priority: High Current Visit: Yes Onset Date : 10/11/14 Annotation/Comment:: Admit. solumedrol. levofloxacin IV renal dosing. duonebs. IS. supplemental oxygen to keep sats greater than 92%. cxr. (2) Hyponatremia SNOMED Code(s): 96120987 Code(s): E87.1 - HYPO-OSMOLALITY AND HYPONATREMIA Status: Acute Current Visit: No (3) Palliative care patient SNOMED Code(s): 301460564 Code(s): Z51.5 - ENCOUNTER FOR PALLIATIVE CARE Status: Acute Current Visit: No (4) Elevated blood pressure reading SNOMED Code(s): 27656688 Code(s): R03.0 - ELEVATED BLOOD-PRESSURE READING, W/O DIAGNOSIS OF HTN Status: Acute Current Visit: Yes (5) Anxiety SNOMED Code(s): 34418234 Code(s): F41.9 - ANXIETY DISORDER, UNSPECIFIED Status: Chronic Current Visit: No - Problem List Review Problem List Initiated/Reviewed/Updated: Yes - My Orders Last 24 Hours: My Active Orders 02/10/17 09:00 Benzonatate [Tessalon Perles] 100 mg PO TID LORazepam [Ativan] 0.5 mg PO TID predniSONE 60 mg PO DAILY - Plan Plan:: 1. Transfer to [facility] today.
--- NOTE | 2017-02-11 09:14 | PCM.DCSUM1 ---
Discharge Summary - Hospital Course Free Text/Narrative:: Hospital course-patient was admitted. Chest x-ray shows COPD no CHF. She had a little bit of pedal edema and that actually improved as she was here. We did not change her diuretics and we stopped her salt pills. Her sodium remained around 127-128. Because she retained fluid on the salt pillowed felt it was better to leave her sodium alone. She was placed on Solu-Medrol 125 mg IV every 8 hours and over the next 3 days wean her down to prednisone 60 mg. She states that she doesn't feel right and prednisone so we added Ativan 3 times a day 0.5 mg for anxiety. Patient normally takes it twice a day. Patient's blood pressure was elevated while she was here most likely from severe anxiety. She decided [facility]. She has family in [place] and will be transferred there. Her white count initially was 9.8. It went to 19.7. Most likely from steroids. She had no signs of infection was she was here. She denied little cough that was treated with Tessalon Perles. She does require oxygen 4 L a day and her oxygen was in the high 90s. We suggested turned down so she does not retain CO2. She refused to allow us to do this. Brief History: This is a 81-year-old female patient with a history of COPD and CHF. She was in the hospital for COPD CHF and released about 3 days ago. Yesterday she states she started to get short of breath and mild cough and wheezy. She states she was in the hospital because she was given salt pills and she swelled up. That's improved and she's non-salt pills. She has a history of chronic hyponatremia. She says she is short of breath and cannot really walk to the bathroom. She lives alone at her house in [facility]. She denies fevers, chills, nasal congestion, sore throat. A couple days ago she has some chest pain. She has a history of angina. She took 3 nitroglycerin and that resolved. She has very little cough is nonproductive. - Discharge Data Discharge Date: 02/11/17 Discharge Disposition: DC/Tfer to [facility] [place] 65 Condition: Poor - Discharge Diagnosis/Problem(s) (1) COPD exacerbation SNOMED Code(s): 763514980504952 ICD Code: J44.1 - CHRONIC OBSTRUCTIVE PULMONARY DISEASE W (ACUTE) EXACERBATION Status: Acute Priority: High Current Visit: Yes Onset Date : 10/11/14 Problem Details: Admit. solumedrol. levofloxacin IV renal dosing. duonebs. IS. supplemental oxygen to keep sats greater than 92%. cxr. (2) Hyponatremia SNOMED Code(s): 25090449 ICD Code: E87.1 - HYPO-OSMOLALITY AND HYPONATREMIA Status: Acute Current Visit: No (3) Palliative care patient SNOMED Code(s): 944806508 ICD Code: Z51.5 - ENCOUNTER FOR PALLIATIVE CARE Status: Acute Current Visit: No (4) Elevated blood pressure reading SNOMED Code(s): 23121070 ICD Code: R03.0 - ELEVATED BLOOD-PRESSURE READING, W/O DIAGNOSIS OF HTN Status: Acute Current Visit: Yes (5) Anxiety SNOMED Code(s): 74211901 ICD Code: F41.9 - ANXIETY DISORDER, UNSPECIFIED Status: Chronic Current Visit: No - Patient Instructions Diet: Regular Diet as Tolerated Activity: As Tolerated Driving: Do Not Drive Showering/Bathing: May Shower Other/Special Instructions: 1. Transfer to [facility]. - Discharge Plan Prescriptions/Med Rec: LORazepam [Ativan] 0.5 mg PO TID #90 tablet Home Medications: Home Meds Fluticasone/Salmeterol [Advair 500-50] 1 puff INH BID 07/05/14 [History] Nitroglycerin [Nitrostat] 0.4 mg SL Q5M PRN 07/05/14 [History] Carvedilol [Coreg] 6.25 mg PO BIDMEALS tablet 06/16/15 [Rx] Losartan [Cozaar] 100 mg PO DAILY tablet 06/16/15 [Rx] Furosemide [Lasix] 40 mg PO DAILY 11/29/16 [History] Levothyroxine [Synthroid] 88 mcg PO DAILY 11/29/16 [History] Magnesium Hydroxide [Milk of Magnesia] 1 dose PO DAILY PRN 11/29/16 [History] Mirtazapine [Remeron] 30 mg PO BEDTIME 11/29/16 [History] Nicotine [Nicotine Patch] 14 mg TRDERM DAILY 11/29/16 [History] Potassium Chloride [Klor-Con 10] 10 meq PO DAILY 11/29/16 [History] busPIRone [Buspar] 7.5 mg PO 08,12 11/29/16 [History] busPIRone [Buspar] 15 mg PO BEDTIME 11/29/16 [History] Acetaminophen [Tylenol] 325 mg PO BID PRN 12/01/16 [History] Aspirin [Halfprin] 162 mg PO DAILY 12/01/16 [History] Fluticasone Propionate [Flonase] 2 sprays NASBOTH DAILY 12/01/16 [History] LORazepam 0.5 - 1 mg PO BID PRN 12/01/16 [History] Levalbuterol HCl 1 inh INH Q4H PRN 02/02/17 [History] Omeprazole 20 mg PO DAILY 02/02/17 [History] Carboxymethylcellulose Sodium [Refresh Tears] 1 drop EYEBOTH TID 02/03/17 [ History] Albuterol/Ipratropium [DuoNeb 3.0-0.5 MG/3 ML] 3 ml INH Q4H neb 02/11/17 [Rx] Benzonatate [Tessalon Perles] 100 mg PO TID cap 02/11/17 [Rx] Docusate Sodium [Colace] 100 mg PO BID PRN cap 02/11/17 [Rx] LORazepam [Ativan] 0.5 mg PO TID #90 tablet 02/11/17 [Rx] Magnesium Hydroxide [Milk of Magnesia] 30 ml PO BEDTIME cup 02/11/17 [Rx] Prednisone [IJD: predniSONE] 60 mg PO DAILY tablet 02/11/17 [Rx] Sodium Chloride 0.9% [Saline Flush] 10 ml FLUSH ASDIRECTED PRN syringe [Rx] Spironolactone [Aldactone] 25 mg PO BID #30 tablet 02/11/17 [Rx] Forms: ED Department Discharge Referrals: Angela Cifuentes NP [Primary Care Provider] - - Discharge Summary/Plan Comment DC Time >30 min.: No - Patient Data Vitals - Most Recent: Last Vital Signs Temp 97.7 F 02/11/17 07:25 Pulse 66 02/11/17 08:16 Resp 24 H 02/11/17 07:25 BP 184/75 H 02/11/17 08:16 Pulse Ox 100 02/11/17 07:25 Weight - Most Recent: 120 lb Med Orders - Current: Current Medications Acetaminophen (Tylenol) 325 mg PO BID PRN PRN Reason: HEADACHE/FEVER Last Admin: 02/10/17 05:32 Dose: 325 mg Albuterol/Ipratropium (Duoneb 3.0-0.5 Mg/3 Ml) 3 ml INH Q4H [facility] Last Admin: 02/11/17 08:16 Dose: 3 ml Artificial Tears (Refresh Tears 0.5%) 0 ml EYEBOTH TID [facility] Last Admin: 02/11/17 08:17 Dose: 1 drop Aspirin (Halfprin) 162 mg PO DAILY [facility] Last Admin: 02/11/17 08:17 Dose: 162 mg Benzonatate (Tessalon Perles) 100 mg PO TID [facility] Last Admin: 02/11/17 08:18 Dose: 100 mg Buspirone HCl (Buspar) 7.5 mg PO 08,12 [facility] Last Admin: 02/11/17 08:15 Dose: 7.5 mg Buspirone HCl (Buspar) 15 mg PO BEDTIME [facility] Last Admin: 02/10/17 21:12 Dose: 15 mg Carvedilol (Coreg) 6.25 mg PO BIDMEALS [facility] Last Admin: 02/11/17 08:16 Dose: 6.25 mg Docusate Sodium (Colace) 100 mg PO BID PRN PRN Reason: Constipation Fluticasone Propionate (Flonase) 0 gm NASBOTH DAILY [facility] Last Admin: 02/11/17 08:16 Dose: 1 spray Furosemide (Lasix) 40 mg PO DAILY [facility] Last Admin: 02/11/17 08:17 Dose: Not Given Levalbuterol HCl (Xopenex) 0.63 mg INH Q4H PRN PRN Reason: SHORTNESS OF BREATH Last Admin: 02/07/17 12:01 Dose: 0.63 mg Levothyroxine Sodium (Synthroid) 88 mcg PO DAILY [facility] Last Admin: 02/11/17 08:18 Dose: 88 mcg Lorazepam (Ativan) 0.5 mg PO TID [facility] Last Admin: 02/11/17 00:55 Dose: 0.5 mg Losartan Potassium (Cozaar) 100 mg PO DAILY [facility] Last Admin: 02/11/17 08:15 Dose: 100 mg Magnesium Hydroxide (Milk Of Magnesia) 30 ml PO DAILY PRN PRN Reason: Constipation Magnesium Hydroxide (Milk Of Magnesia) 30 ml PO BEDTIME [facility] Last Admin: 02/10/17 21:13 Dose: 30 ml Mirtazapine (Remeron) 30 mg PO BEDTIME [facility] Last Admin: 02/10/17 21:14 Dose: 30 mg Mometasone Furoate/Formoterol Fumar (Dulera 200-5 Mcg) 2 puff IH BID [facility] Last Admin: 02/11/17 08:16 Dose: 2 puff Nicotine (Habitrol) 14 mg TRDERM Q24H [facility] Last Admin: 02/11/17 08:17 Dose: 14 mg Nitroglycerin (Nitrostat) 0.4 mg SL Q5M PRN PRN Reason: Chest Pain Ondansetron HCl (Zofran) 4 mg IV Q4H PRN PRN Reason: Nausea/Vomiting Last Admin: 02/07/17 11:11 Dose: 4 mg Pantoprazole Sodium (Protonix) 40 mg PO DAILY [facility] Last Admin: 02/11/17 08:17 Dose: 40 mg Potassium Chloride (Klor-Con 10) 10 meq PO DAILY [facility] Last Admin: 02/11/17 08:17 Dose: 10 meq Prednisone (Prednisone) 60 mg PO DAILY [facility] Last Admin: 02/11/17 08:17 Dose: 60 mg Sodium Chloride (Saline Flush) 10 ml FLUSH ASDIRECTED PRN PRN Reason: Keep Vein Open Last Admin: 02/09/17 11:00 Dose: 10 ml Spironolactone (Aldactone) 50 mg PO BIDDIURETIC [facility] Last Admin: 02/11/17 08:15 Dose: Not Given Discontinued Medications Albuterol/Ipratropium (Duoneb 3.0-0.5 Mg/3 Ml) 3 ml NEB ONETIME ONE Stop: 02/06/17 17:05 Last Admin: 02/06/17 17:05 Dose: 3 ml Albuterol/Ipratropium (Duoneb 3.0-0.5 Mg/3 Ml) 3 ml INH ONETIME PRN PRN Reason: Shortness Of Breath/wheezing Albuterol/Ipratropium (Duoneb 3.0-0.5 Mg/3 Ml) 3 ml NEB Q6H PRN PRN Reason: Shortness of Breath Last Admin: 02/07/17 06:21 Dose: 3 ml Buspirone HCl (Buspar) 15 mg PO ONETIME ONE Stop: 02/06/17 21:31 Last Admin: 02/06/17 22:13 Dose: Not Given Buspirone HCl (Buspar) 15 mg PO ONETIME ONE Stop: 02/06/17 22:01 Last Admin: 02/06/17 22:15 Dose: 15 mg Carvedilol (Coreg) 6.25 mg PO ONETIME ONE Stop: 02/06/17 21:31 Last Admin: 02/06/17 22:14 Dose: Not Given Carvedilol (Coreg) 6.25 mg PO ONETIME ONE Stop: 02/06/17 22:01 Last Admin: 02/06/17 22:17 Dose: 6.25 mg Lorazepam (Ativan) 0.5 mg PO BID PRN PRN Reason: ANXIETY Last Admin: 02/10/17 01:20 Dose: 0.5 mg Methylprednisolone Sodium Succinate (Solu-Medrol) Confirm Administered Dose 125 mg .ROUTE .STK-MED ONE Stop: 02/06/17 17:14 Last Admin: 02/06/17 17:56 Dose: Not Given Methylprednisolone Sodium Succinate (Solu-Medrol) 125 mg IVPUSH ONETIME ONE Stop: 02/06/17 17:20 Last Admin: 02/06/17 17:15 Dose: 125 mg Methylprednisolone Sodium Succinate (Solu-Medrol) 125 mg IVPUSH Q8H [facility] Last Admin: 02/08/17 01:55 Dose: 125 mg Methylprednisolone Sodium Succinate (Solu-Medrol) 125 mg IVPUSH Q12H [facility] Last Admin: 02/09/17 10:56 Dose: 125 mg Methylprednisolone Sodium Succinate (Solu-Medrol) 125 mg IVPUSH DAILY [facility] Mirtazapine (Remeron) 30 mg PO ONETIME ONE Stop: 02/07/17 21:31 Mirtazapine (Remeron) 30 mg PO ONETIME ONE Stop: 02/06/17 22:01 Last Admin: 02/06/17 22:19 Dose: 30 mg Spironolactone (Aldactone) 25 mg PO DAILY [facility] Last Admin: 02/09/17 08:52 Dose: 25 mg *Q Meaningful Use (DIS) - VTE *Q VTE Criteria *Q: - Stroke *Q Stroke Criteria *Q: - AMI *Q AMI Criteria *Q:
== END 2017-02-11 11:10 | DRG 191 ==
LOC: FB.ED 16:57 → FB.MS 17:41 → OBSVTOIN 02-07 08:25
PROVIDERS: ADMIT Emergency Medicine; ATTEND Family Medicine
DX: J44.1 Chronic obstructive pulmonary disease with (acute) exacerbation (principal); E87.1 Hypo-osmolality and hyponatremia; I13.0 Hypertensive heart and chronic kidney disease with heart failure and stage 1 through stage 4 chronic kidney disease, or unspecified chronic kidney disease; I42.9 Cardiomyopathy, unspecified; I50.9 Heart failure, unspecified; Z99.81 Dependence on supplemental oxygen; Z66 Do not resuscitate; Z51.5 Encounter for palliative care; Z87.891 Personal history of nicotine dependence; R06.02 Shortness of breath; E03.9 Hypothyroidism, unspecified; N18.9 Chronic kidney disease, unspecified; I25.119 Atherosclerotic heart disease of native coronary artery with unspecified angina pectoris; E78.00 Pure hypercholesterolemia, unspecified; Z86.73 Personal history of transient ischemic attack (TIA), and cerebral infarction without residual deficits; Z85.3 Personal history of malignant neoplasm of breast; F41.9 Anxiety disorder, unspecified; F32.9 Major depressive disorder, single episode, unspecified; M19.90 Unspecified osteoarthritis, unspecified site; M54.9 Dorsalgia, unspecified; G89.29 Other chronic pain; K21.9 Gastro-esophageal reflux disease without esophagitis; K59.09 Other constipation; Z87.01 Personal history of pneumonia (recurrent); Z95.5 Presence of coronary angioplasty implant and graft; H54.7 Unspecified visual loss; Z79.82 Long term (current) use of aspirin; Z79.52 Long term (current) use of systemic steroids; Z88.5 Allergy status to narcotic agent; Z88.8 Allergy status to other drugs, medicaments and biological substances
CPT/HCPCS: 36415; 71010; 80048; 83605; 83880; 84484; 85025; 85610; 93005; 94640 ×3; 96374; 96376 ×2; 99285; A9270 ×3; G0378 ×2; J2930 ×2; J7050 ×2; J7620 ×3; 80053; 97161-GP; 97165-GO; J2405; J7612